=== PATIENT | female | born 1985 | race Caucasian/White ===

== ENCOUNTER 2016-03-14 13:20 | Emergency (ER) | payer SELFPAY ==
[~2016-03-14] VITALS: Ht 170.2 cm; Wt 123.7 kg
[~2016-03-14 13:20] MED LIST: FIORIC PO
[2016-03-14 13:24] VITALS: BP 190/124; PULSE 98; RESP 16; TEMP 99; O2SAT 100
[2016-03-14] MEDS ORDERED: TYLE325T PO (13:58)
[2016-03-14] MEDS ORDERED: IBUP800T23 PO (13:58)
[2016-03-14 13:59] LABS: MEAN CORPUSCULAR HGB CONC 29.5 % (32.0-36.0)
--- NOTE | 2016-03-14 14:24 | PD ---
HPI Chief Complaint: Hypertension Time Seen by Provider: 13:56 Travel History International Travel<30 days: No Contact w/Intl Traveler<30days: No Traveled to known affect area: No History of Present Illness HPI Set 30 year-old woman who presents to the emergency department complaining of elevated blood pressure. She is a history of polycystic kidney disease and medullary sponge kidney. She is not supposed to take NSAIDs. She's had bad dental pain in her right upper wisdom tooth for the past several weeks and over the past week is taken a lot of ibuprofen. She states that she went to the oral surgeon today get the surgery done to remove her was sent to swelling is her blood pressure was markedly elevated, 220s over 100s. They nontender to to see if that would help with the pain. Her blood pressure remained elevated so she was sent to the emergency department for evaluation. Other than the dental pain patient's been feeling otherwise well. No change in her urination. No chest pain or trouble breathing. No other complaints. History Past Medical History Narrative Medical Polycystic kidney disease, medullary sponge kidney PNEUMOCCOCAL Vaccine (Year): 1 Menopausal: No : 2 Para: 2 Social History Alcohol Use: No Tobacco Use: No Allergies-Medications (Allergen,Severity, Reaction): Coded Allergies: Contrast Media (Verified Allergy, Severe, VOMITING , 03/14/16) Inapsine (Verified Allergy, Severe, Anaphylaxis, 03/14/16) Oxycodone (Verified Allergy, Severe, HIVES, 03/14/16) Percocet (Verified Allergy, Severe, DIFFICULTY BREATHING, 03/14/16) Sulfa (Verified Allergy, Severe, swell, 03/14/16) Toradol (Verified Allergy, Severe, ITCHING, 03/14/16) Ibuprofen (Verified Adverse Reaction, Unknown, TOLD NOT TO TAKE DUE TO KIDNEY DISORDERS, 03/14/16) Reported Meds & Prescriptions Reported Meds & Active Scripts Active Reported Ibuprofen 800 Mg Tab 800 Mg PO Q8H PRN Tylenol (Acetaminophen) 325 Mg Tab 650 Mg PO Q6H PRN Review of Systems Except as stated in HPI: all other systems reviewed are Neg Physical Exam Narrative GENERAL: Well-appearing 30 year-old woman, no acute distress. SKIN: Warm and dry. HEAD: Atraumatic. Normocephalic. CARDIOVASCULAR: Regular rate and rhythm. No murmur appreciated. RESPIRATORY: No accessory muscle use. Clear to auscultation. Breath sounds equal bilaterally. GASTROINTESTINAL: Abdomen soft, non-tender, nondistended. Hepatic and splenic margins not palpable. MUSCULOSKELETAL: No obvious deformities. Data Data Last Documented VS Vital Signs Date Time Temp Pulse Resp B/P Pulse Ox O2 Delivery O2 Flow Rate FiO2 03/14/16 13:24 99.0 98 16 190/124 100 Orders Complete Blood Count With Diff (03/14/16 13:57) Basic Metabolic Panel (Bmp) (03/14/16 13:57) Iv Access Insert/Monitor (03/14/16 13:57) Labs Laboratory Tests Test 03/14/16 14:28 White Blood Count 15.2 TH/MM3 Red Blood Count 4.91 MIL/MM3 Hemoglobin 9.8 GM/DL Hematocrit 33.3 % Mean Corpuscular Volume 67.9 FL Mean Corpuscular Hemoglobin 20.0 PG Mean Corpuscular Hemoglobin 29.5 % Concent Red Cell Distribution Width 17.2 % Platelet Count 473 TH/MM3 Mean Platelet Volume 7.6 FL Neutrophils (%) (Auto) 64.5 % Lymphocytes (%) (Auto) 23.9 % Monocytes (%) (Auto) 6.3 % Eosinophils (%) (Auto) 2.3 % Basophils (%) (Auto) 3.0 % Neutrophils # (Auto) 9.8 TH/MM3 Lymphocytes # (Auto) 3.6 TH/MM3 Monocytes # (Auto) 1.0 TH/MM3 Eosinophils # (Auto) 0.3 TH/MM3 Basophils # (Auto) 0.5 TH/MM3 CBC Comment AUTO DIFF Sodium Level 141 MEQ/L Potassium Level 3.8 MEQ/L Chloride Level 108 MEQ/L Carbon Dioxide Level 23.7 MEQ/L Anion Gap 9 MEQ/L Blood Urea Nitrogen 9 MG/DL Creatinine 0.65 MG/DL Estimat Glomerular Filtration 106 ML/MIN Rate Random Glucose 86 MG/DL Calcium Level 8.5 MG/DL [facility] Medical Decision Making Medical Screen Exam Complete: Yes Emergency Medical Condition: Yes Interpretation(s) LABS: CBC remarkable for mild leukocytosis. Mild anemia. BMP unremarkable. Differential Diagnosis Hypertension, adverse effect of NSAIDs, pain, other Narrative Course Medical decision making INITIAL: 30-year-old woman presents emergent department with a somatic elevated blood pressure. 2 still numb she does not in any pain now. This could be related to her chronic kidney disease and NSAID use. We'll check creatinine, reassess. Diagnosis Primary Impression: Elevated blood pressure reading Additional Instructions: Take amlodipine as prescribed. Take blood pressure daily, right down on a sheet of paper, take the paper with you when you follow up with her primary physician. Return to the emergency department for any worsening headache, chest pain, trouble breathing, or any other new or worsening symptoms. Med/Other Pt SpecificInfo: Prescription(s) given Scripts Amlodipine 5 Mg Tab5 Mg PO DAILY #30 TAB Ref 0 Prov:Poli Mccurdy MD 03/14/16 Disposition: 01 DISCHARGE HOME Condition: Stable Poli Mccurdy MD Mar 14, 2016 14:24
[2016-03-14 14:42] LABS: AUTOMATED NEUTROPHIL # 9.8 TH/MM3 (1.8-7.7); BASOPHIL # 0.5 TH/MM3 (0-0.2); EOSINOPHIL # 0.3 TH/MM3 (0-0.4); EOSINOPHIL % 2.3 % (0.0-4.0); HEMATOCRIT 33.3 % (35.0-46.0); LYMPH % 23.9 % (9.0-44.0); LYMPHOCYTE # 3.6 TH/MM3 (1.0-4.8); MEAN CELL VOLUME 67.9 FL (80.0-100.0); MONO % 6.3 % (0.0-8.0); NEUT % 64.5 % (16.0-70.0); PLATELET COUNT 473 TH/MM3 (150-450); RED BLOOD COUNT 4.91 MIL/MM3 (4.00-5.30); RED CELL DISTRIBUTION WIDTH 17.2 % (11.6-17.2); WHITE BLOOD COUNT 15.2 TH/MM3 (4.0-11.0)
[2016-03-14 14:44] LABS: HEMO FLAGS AUTO DIFF
[2016-03-14 14:45] LABS: POTASSIUM 3.8 MEQ/L (3.5-5.1)
[2016-03-14 14:48] LABS: BICARBONATE 23.7 MEQ/L (21.0-32.0)
[2016-03-14] MEDS ORDERED: AMLO5TAB2 PO (15:04)
[2016-03-14 15:08] LABS: SCAN/DIFF AUTO DIFF CONFIRMED
[2016-03-14] MEDS ORDERED: amLODIPine BESYLATE 5 MG TAB PO ONE (15:15)
[2016-03-14 15:19] VITALS: BP 202/80
== END 2016-03-14 15:22 | disposition home or self-care (01) ==
LOC: PHED 13:20
DX: R03.0 Elevated blood-pressure reading, without diagnosis of hypertension (principal); Q61.3 Polycystic kidney, unspecified; Q61.5 Medullary cystic kidney
CPT/HCPCS: 80048; 85025; 99283

== ENCOUNTER 2016-12-25 07:07 | Emergency (ER) | payer OTHER ==
[~2016-12-25] VITALS: Ht 170.2 cm; Wt 128.0 kg
[~2016-12-25 07:07] MED LIST changes: +AMLO5TAB2 PO; -FIORIC PO; +IBUP800T23 PO; +TYLE325T PO
[2016-12-25 07:13] VITALS: BP 228/124; PULSE 103; RESP 20; TEMP 97.8; O2SAT 100
[2016-12-25] MEDS ORDERED: diphenhydrAMINE HCL 50 MG/ML VIAL IV PUSH ONE (07:45)
[2016-12-25] MEDS ORDERED: METOCLOPRAMIDE HCL 10 MG/2 ML VIAL IV PUSH ONE (07:45)
[2016-12-25] MEDS ORDERED: SODIUM CHLOR 0.9% 1000 ML INJ 1,000 ML IV ONE (07:45)
--- NOTE | 2016-12-25 07:48 | PD ---
HPI Chief Complaint: Headache Time Seen by Provider: 07:18 Travel History International Travel<30 days: No Contact w/Intl Traveler<30days: No Traveled to known affect area: No History of Present Illness HPI 31-year-old female at 15 weeks presents with nasal congestion and frontal headache over the past 3 days. She denies any fever and her MAXIMUM TEMPERATURE was 99.3. She states that yesterday she saw her asp net software developer at [place] [employer] and they recommended for her to add in Benadryl to the Tylenol that she was taking. She states that she's not having any abdominal pain, vaginal bleeding, vaginal discharge or other concurrent complaints at this time. She states that she used to be on metoprolol before she was but her blood pressure has been fine even up until yesterday when it was in the 130s over 80s. She states that she was trying to stay off of blood pressure medication if possible is trying to adjust her diet by limiting salt. She denies specific modifying factors. PFSH Past Medical History Arthritis: No Asthma: No Autoimmune Disease: No Blood Disorders: No Anxiety: No Depression: No Heart Rhythm Problems: No Cancer: No High Cholesterol: No Chemotherapy: No Congestive Heart Failure: No COPD: No Cerebrovascular Accident: No Diabetes: No Diminished Hearing: No Endocrine: No Gastrointestinal Disorders: No GERD: No Glaucoma: No Genitourinary: Yes (POLYCYSTIC & MEDULLARY SPONGE KIDNEYS) Headaches: No Hepatitis: No Hiatal Hernia: No Heparin Induced Thrombocytopen: No Hypertension: Yes Immune Disorder: No Kidney Stones: Yes Musculoskeletal: No Parkinson's Disease: No Psychiatric: No Reproductive: No Respiratory: No Immunizations Current: No Migraines: Yes Myocardial Infarction: Yes Radiation Therapy: No Renal Failure: No Seizures: No Sickle Cell Disease: No Sleep Apnea: No Thyroid Disease: No Ulcer: No PNEUMOCCOCAL Vaccine (Year): 1 ?: Menopausal: No : 3 Para: 2 Miscarriage: 0 : 0 Past Surgical History Abdominal Surgery: Yes (C SECTION) AICD: No Appendectomy: No Arteriovenous Shunt: No Body Medical Devices: KIDNEY STENTS Cardiac Surgery: No Section: Yes Cholecystectomy: No Ear Surgery: No Endocrine Surgery: No Eye Surgery: No Insulin Pump: No Joint Replacement: No Oral Surgery: No Pacemaker: No Thoracic Surgery: No Social History Alcohol Use: No Tobacco Use: No Substance Use: No Allergies-Medications (Allergen,Severity, Reaction): Coded Allergies: Sulfa (Sulfonamide Antibiotics) (Unverified Allergy, Severe, swell, ) acetaminophen (Unverified Allergy, Severe, DIFFICULTY BREATHING, 12/25/16) diatrizoate meglumine (Unverified Allergy, Severe, VOMITING , 12/25/16) droperidol (Unverified Allergy, Severe, Anaphylaxis, 12/25/16) gadobenic acid (Unverified Allergy, Severe, VOMITING , 12/25/16) gadodiamide (Unverified Allergy, Severe, VOMITING , 12/25/16) gadoteridol (Unverified Allergy, Severe, VOMITING , 12/25/16) iodixanol (Unverified Allergy, Severe, VOMITING , 12/25/16) iohexol (Unverified Allergy, Severe, VOMITING , 12/25/16) ketorolac (Unverified Allergy, Severe, ITCHING, 12/25/16) oxycodone (Unverified Allergy, Severe, DIFFICULTY BREATHING, 12/25/16) ibuprofen (Unverified Adverse Reaction, Unknown, TOLD NOT TO TAKE DUE TO KIDNEY DISORDERS, 12/25/16) Reported Meds & Prescriptions Reported Meds & Active Scripts Active Macrobid (Nitrofurantoin Monoh/Nitrofur Macro) 100 Mg Cap 100 Mg PO BID 5 Days Labetalol (Labetalol HCl) 100 Mg Tab 100 Mg PO BID 30 Days Reported Tylenol (Acetaminophen) 325 Mg Tab 650 Mg PO Q6H PRN Review of Systems Except as stated in HPI: all other systems reviewed are Neg Physical Exam Narrative General: No apparent distress, well appearing ENT: mmm, rhinorrhea noted Neck: Neck is supple, no meningeal signs, trachea is midline Cardiovascular: Regular rate and rhythm Lungs: No increased respiratory effort noted, CTA bilaterally Abdomen: Soft, NT, ND, no rebound or guarding Extremities: No edema Neuro: Awake, motor and sensation grossly intact, normal speech Data Data Last Documented VS Vital Signs Date Time Temp Pulse Resp B/P (MAP) Pulse Ox O2 Delivery O2 Flow Rate FiO2 12/25/16 09:02 98 18 189/84 (119) 98 Room Air 12/25/16 07:13 97.8 Orders Orders Magnesium (Mg) (12/25/16 07:32) Phosphorus (Po4) (12/25/16 07:32) Complete Blood Count With Diff (12/25/16 07:32) Basic Metabolic Panel (Bmp) (12/25/16 07:32) Urinalysis - C+S If Indicated (12/25/16 07:32) Iv Access Insert/Monitor (12/25/16 07:32) Ecg Monitoring (12/25/16 07:32) Oximetry (12/25/16 07:32) Sodium Chlor 0.9% 1000 Ml Inj (Ns 1000 M (12/25/16 07:45) Influenzae A/B Antigen (12/25/16 07:32) Metoclopramide Inj (Reglan Inj) (12/25/16 07:45) Diphenhydramine Inj (Benadryl Inj) (12/25/16 07:45) Labetalol (Trandate) (12/25/16 08:00) Urine Culture (12/25/16 07:45) Ed Discharge Order (12/25/16 09:17) Labs Laboratory Tests Test 12/25/16 07:45 12/25/16 08:30 Urine Collection Type CLEAN CATCH Urine Color YELLOW Urine Turbidity CLEAR Urine pH 7.0 Urine Specific Dexter 1.010 Urine Protein 30 mg/dL Urine Glucose (UA) NEG mg/dL Urine Ketones NEG mg/dL Urine Occult Blood TRACE Urine Nitrite NEG Urine Bilirubin NEG Urine Leukocyte Esterase LARGE Urine RBC 4-9 /hpf Urine WBC 25-49 /hpf Urine Squamous Epithelial Cells > 8 /hpf Urine Bacteria FEW /hpf Microscopic Urinalysis Comment CULTURE INDICATED Urine Collection Time 07:45 White Blood Count 14.8 TH/MM3 Red Blood Count 5.38 MIL/MM3 Hemoglobin 14.3 GM/DL Hematocrit 44.3 % Mean Corpuscular Volume 82.4 FL Mean Corpuscular Hemoglobin 26.7 PG Mean Corpuscular Hemoglobin Concent 32.4 % Red Cell Distribution Width 17.6 % Platelet Count 332 TH/MM3 Mean Platelet Volume 7.9 FL Neutrophils (%) (Auto) 72.2 % Lymphocytes (%) (Auto) 17.1 % Monocytes (%) (Auto) 9.4 % Eosinophils (%) (Auto) 0.6 % Basophils (%) (Auto) 0.7 % Neutrophils # (Auto) 10.7 TH/MM3 Lymphocytes # (Auto) 2.5 TH/MM3 Monocytes # (Auto) 1.4 TH/MM3 Eosinophils # (Auto) 0.1 TH/MM3 Basophils # (Auto) 0.1 TH/MM3 CBC Comment DIFF FINAL Differential Comment Blood Urea Nitrogen 6 MG/DL Creatinine 0.56 MG/DL Random Glucose 87 MG/DL Calcium Level 9.1 MG/DL Phosphorus Level 2.9 MG/DL Magnesium Level 2.1 MG/DL Sodium Level 135 MEQ/L Potassium Level 3.3 MEQ/L Chloride Level 102 MEQ/L Carbon Dioxide Level 21.7 MEQ/L Anion Gap 11 MEQ/L Estimat Glomerular Filtration Rate 125 ML/MIN MDM Medical Decision Making Medical Screen Exam Complete: Yes Emergency Medical Condition: Yes Medical Record Reviewed: Yes (past history confirm, prior visit with elevated blood pressure here in March placed on [facility]) Interpretation(s) CBC & BMP Diagram 12/25/16 08:30 Calcium Level 9.1, Phosphorus Level 2.9, Magnesium Level 2.1 ua ?contamination vs uti, given will treat Differential Diagnosis Hypertensive urgency, URI, hypertension, renal failure Narrative Course Will check blood work, urinalysis and discuss with her asp net software developer while dosing with IV fluids, Reglan, Benadryl Patient updated and agrees to starting labetalol for blood pressure medication. We'll give first dose here of 100 mg Patient denies any new complaints and states that they are feeling better. Patient happy with care, all questions answered. Patient knows that follow up is incumbent on them and to return to the emergency room immediately if new or worsening symptoms develop. Patient given strict return precautions, vitals reviewed and are normal, agrees to further workup as an outpatient. Physician Communication Physician Communication dr garnica who is covering for the group agrees to workup as ordered and to start on labetalol 100 mg twice a day and to have her follow in the office tomorrow morning if her blood pressure and symptoms improve dr garnica agrees to Macrobid and discharge with labetalol 100 mg twice a day as discussed Diagnosis Primary Impression: Headache in Qualified Codes: O26.899 - Other specified related conditions, unspecified trimester; R51 - Headache Additional Impressions: Hypertension Qualified Codes: I10 - Essential (primary) hypertension Upper respiratory infection Qualified Codes: J06.9 - Acute upper respiratory infection, unspecified Patient Instructions: General Instructions Additional Instructions: Return as needed, keep blood pressure log, follow with asp net software developer in the morning, Tylenol as needed, keep hydrated Med/Other Pt SpecificInfo: Prescription(s) given Scripts Nitrofurantoin Monohydrate Macrocrystals (Macrobid) 100 Mg Cap 100 MG PO BID for Infection for 5 Days, #10 CAP 0 Refills Prov: Makenzie Prieto MD 12/25/16 Labetalol (Labetalol) 100 Mg Tab 100 MG PO BID for Blood Pressure Management for 30 Days, #60 TAB 0 Refills Prov: Makenzie Prieto MD 12/25/16 Disposition: 01 DISCHARGE HOME Condition: Stable Makenzie Prieto MD Dec 25, 2016 07:48
[2016-12-25] MEDS ORDERED: LABETALOL HCL 100 MG TAB PO ONE (08:00)
[2016-12-25 08:05] LABS: BLOOD, URINE TRACE (NEG); GLUCOSE,URINE NEG (NEG); KETONE, URINE NEG (NEG); NITRITE,URINE NEG (NEG)
[2016-12-25 08:07] LABS: METHOD OF COLLECTION CLEAN CATCH
[2016-12-25 08:08] LABS: URINE COLOR YELLOW (YELLW/STRAW)
[2016-12-25 08:14] LABS: SQUAMOUS EPITHELIAL CELL URINE > 8 /hpf (0-5)
[2016-12-25 08:15] VITALS: BP 215/96; PULSE 98; RESP 18; O2SAT 98
[2016-12-25 08:15] LABS: BACTERIA, URINE FEW /hpf; COMMENT (UR) CULTURE INDICATED; CULTURE IF INDICATED CULTURE INDICATED
[2016-12-25 08:17] VITALS: RESP 18; O2SAT 98
[2016-12-25 08:48] LABS: AUTOMATED NEUTROPHIL # 10.7 TH/MM3 (1.8-7.7); BASOPHIL # 0.1 TH/MM3 (0-0.2); BASOPHIL % 0.7 % (0.0-2.0); EOSINOPHIL # 0.1 TH/MM3 (0-0.4); EOSINOPHIL % 0.6 % (0.0-4.0); HEMATOCRIT 44.3 % (35.0-46.0); HEMO FLAGS DIFF FINAL; LYMPH % 17.1 % (9.0-44.0); LYMPHOCYTE # 2.5 TH/MM3 (1.0-4.8); MEAN CELL VOLUME 82.4 FL (80.0-100.0); MEAN CORPUSCULAR HEMOGLOBIN 26.7 PG (27.0-34.0); MEAN CORPUSCULAR HGB CONC 32.4 % (32.0-36.0); MONO % 9.4 % (0.0-8.0); NEUT % 72.2 % (16.0-70.0); PLATELET COUNT 332 TH/MM3 (150-450); RED BLOOD COUNT 5.38 MIL/MM3 (4.00-5.30); RED CELL DISTRIBUTION WIDTH 17.6 % (11.6-17.2); WHITE BLOOD COUNT 14.8 TH/MM3 (4.0-11.0)
[2016-12-25 08:56] LABS: POTASSIUM 3.3 MEQ/L (3.5-5.1)
[2016-12-25 09:00] LABS: BICARBONATE 21.7 MEQ/L (21.0-32.0); MAGNESIUM 2.1 MG/DL (1.5-2.5)
[2016-12-25 09:02] VITALS: BP 189/84; PULSE 98; RESP 18; O2SAT 98
[2016-12-25] MEDS ORDERED: LABE100T2 PO (09:16)
[2016-12-25] MEDS ORDERED: MACR100C2 PO (09:16)
== END 2016-12-25 09:39 | disposition home or self-care (01) ==
LOC: PHED 07:07
DX: O26.92 Pregnancy related conditions, unspecified, second trimester (principal); R51 Headache; O10.912 Unspecified pre-existing hypertension complicating pregnancy, second trimester; I25.2 Old myocardial infarction; Z3A.15 15 weeks gestation of pregnancy
CPT/HCPCS: 80048; 81001; 83735; 84100; 85025; 87086; 87804; 96361; 96374; 96375; 99284; J1200; J2765; J7030

== ENCOUNTER 2017-01-23 13:53 | Observation (INO) | payer MEDICAID, OTHER ==
[2017-01-23] VITALS (7 sets, daily range): BP systolic 150–160; BP diastolic 81–90; PULSE 88–91; RESP 18; TEMP 98.3
[~2017-01-23] VITALS: Ht 170.2 cm; Wt 104.0 kg
[~2017-01-23 13:53] MED LIST changes: -AMLO5TAB2 PO; -IBUP800T23 PO; +LABE100T2 PO; +MACR100C2 PO
--- NOTE | 2017-01-23 15:20 | HHI.HP ---
HPI Chief Complaint Hypertension Date Seen: Jan 23, 2017 Time Seen: 15:10 Travel History International Travel<30 Days: No Contact w/Intl Traveler<30Days: No Known Affected Area: No History of Present Illness HPI Patient is 31-year-old white female previous [address] Wang for care. She has history of chronic hypertension long-term and is on labetalol just recently started. She noted that her blood pressure going up today in the 160/100 drains and an 180 and 190/[address] [facility] office and they told her to come here and to double up on her labetalol 100 mg tablet again today. only Medications She Takes for Her Blood Pressure Right Now. She is 19 weeks is no bleeding or abdominal pain no drainage Weeks Gestation: 19 Para: 2 : 3 Last Menstrual Period: Jan 23, 2017 History Past Medical History Narrative Medical Chronic hypertension patient prior to was on Lopressor low-dose and was controlled well with that. Once she was on nothing the first trimester and then started on labetalol in the second trimester. She has a history of polycystic kidney disease as well as some of the chronic kidney problem Obstetric History Obstetric History She had 2 C-sections, she states with her last she was in the hospital for hypertension for 4 months of on her that was treated just in-house hospitalization and observation really treated with medication according to her this was 15 years ago Past Surgical History Narrative Surgical 2 C-sections Social History Alcohol Use: No Tobacco Use: No Substance Abuse: No Allergies-Medications (Allergen,Severity, Reaction): Coded Allergies: Sulfa (Sulfonamide Antibiotics) (Unverified Allergy, Severe, swell, ) acetaminophen (Unverified Allergy, Severe, DIFFICULTY BREATHING, 12/25/16) diatrizoate meglumine (Unverified Allergy, Severe, VOMITING , 12/25/16) droperidol (Unverified Allergy, Severe, Anaphylaxis, 12/25/16) gadobenic acid (Unverified Allergy, Severe, VOMITING , 12/25/16) gadodiamide (Unverified Allergy, Severe, VOMITING , 12/25/16) gadoteridol (Unverified Allergy, Severe, VOMITING , 12/25/16) iodixanol (Unverified Allergy, Severe, VOMITING , 12/25/16) iohexol (Unverified Allergy, Severe, VOMITING , 12/25/16) ketorolac (Unverified Allergy, Severe, ITCHING, 12/25/16) oxycodone (Unverified Allergy, Severe, DIFFICULTY BREATHING, 12/25/16) ibuprofen (Unverified Adverse Reaction, Unknown, TOLD NOT TO TAKE DUE TO KIDNEY DISORDERS, 12/25/16) Home Meds Active Scripts Nitrofurantoin Monohydrate Macrocrystals (Macrobid) 100 Mg Cap, 100 MG PO BID for Infection for 5 Days, #10 CAP 0 Refills Prov:Makenzie Prieto MD 12/25/16 Labetalol (Labetalol) 100 Mg Tab, 100 MG PO BID for Blood Pressure Management for 30 Days, #60 TAB 0 Refills Prov:Makenzie Prieto MD 12/25/16 Reported Medications Acetaminophen (Tylenol) 325 Mg Tab, 650 MG PO Q6H Y for PAIN, TAB 0 Refills 03/14/16 Review of Systems General / Constitutional: No: Fever, Weight Gain, Chills, Other Eyes: Blurred Vision, No: Diploplia, Visual changes, Pain, Photophobia HENT: Headaches, No: Vertigo, Lightheadedness Cardiovascular: No: Irregular Rhythm, Chest Pain or Discomfort, Palpitations, Tachycardia, Syncope, Varicosities, Edema, Cyanosis Respiratory: No: Cough, Short of Breath, Other Gastrointestinal: No: Nausea, Vomiting, Diarrhea Genitourinary: No: Decreased Urinary Output, Oliguria Musculoskeletal: No: Limited ROM, Weakness, Cramping, Edema, Pain Skin: No Rash, No Itching, No Dryness, No Lumps, No Change in Pigmentation, No Change in Nails, No Alopecia, No Lesions Neurologic: No: Weakness, Dizziness, Syncope, Focal Abnormalities, Coordination Problem, Headache, Slurred Speech, Seizures Psychiatric: No: Depression, Suicidal Ideations, Homicidal Ideation Endocrine: No: Heat Intolerance, Cold Intolerance, Polydipsia, Polyuria, Other Physical Exam Vital Signs Date Time Temp Pulse Resp B/P (MAP) Pulse Ox O2 Delivery O2 Flow Rate FiO2 01/23/17 14:40 91 159/85 (109) Narrative GENERAL: Well-nourished, well-developed obese patient. SKIN: Warm and dry. HEAD: Normocephalic and atraumatic. EYES: No scleral icterus. No injection or drainage. ENT: No nasal drainage noted. Mucous membranes pink. Airway patent. NECK: Supple, trachea midline. No JVD. CARDIOVASCULAR: Regular rate and rhythm without murmurs, gallops, or rubs. RESPIRATORY: Breath sounds equal bilaterally. No accessory muscle use. BREASTS: Bilateral exam showed no masses , no retractions, no nipple discharge. ABDOMEN/GI: Abdomen soft, non-tender, bowel sounds present, no rebound, no guarding Gravid to [19-] weeks size Fundal Height: [19-] FHT's: 140s ] EXTREMITIES: No cyanosis or edema. BACK: Nontender without obvious deformity. No CVA tenderness. NEUROLOGICAL: Awake and alert. Motor and sensory grossly within normal limits. Five out of 5 muscle strength in all muscle groups. Normal speech. Caprini VTE Risk Assessment Caprini VTE Risk Assessment: No/Low Risk (score <= 1) Caprini Risk Assessment Model Point Value = 1 Point Value = 2 Point Value = 3 Point Value = 5 Age 41-60 Minor surgery BMI > 25 kg/m2 Swollen legs Varicose veins or History of unexplained or recurrent spontaneous Oral contraceptives or hormone replacement Sepsis (< 1 month) Serious lung disease, including pneumonia (< 1 month) Abnormal pulmonary function Acute myocardial infarction Congestive heart failure (< 1 month) History of inflammatory bowel disease Medical patient at bed rest Age 61-74 Arthroscopic surgery Major open surgery (> 45 min) Laparoscopic surgery (> 45 min) Malignancy Confined to bed (> 72 hours) Immobilizing plaster cast Central venous access Age >= 75 History of VTE Family history of VTE Factor V Leiden Prothrombin [id number] Lupus anticoagulant Anticardiolipin antibodies Elevated serum homocysteine Heparin-induced thrombocytopenia Other congenital or acquired thrombophilia Stroke (< 1 month) Elective arthroplasty Hip, pelvis, or leg fracture Acute spinal cord injury (< 1 month) Prophylaxis Regimen Total Risk Factor Score Risk Level Prophylaxis Regimen 0-1 Low Early ambulation 2 Moderate Order ONE of the following: *Sequential Compression Device (SCD) *Heparin 5000 units SQ BID 3-4 Higher Order ONE of the following medications: *Heparin 5000 units SQ TID *Enoxaparin/Lovenox 40 mg SQ daily (WT < 150 kg, CrCl > 30 mL/min) *Enoxaparin/Lovenox 30 mg SQ daily (WT < 150 kg, CrCl > 10-29 mL/min) *Enoxaparin/Lovenox 30 mg SQ BID (WT < 150 kg, CrCl > 30 mL/min) AND/OR *Sequential Compression Device (SCD) 5 or more Highest Order ONE of the following medications: *Heparin 5000 units SQ TID (Preferred with Epidurals) *Enoxaparin/Lovenox 40 mg SQ daily (WT < 150 kg, CrCl > 30 mL/min) *Enoxaparin/Lovenox 30 mg SQ daily (WT < 150 kg, CrCl > 10-29 mL/min) *Enoxaparin/Lovenox 30 mg SQ BID (WT < 150 kg, CrCl > 30 mL/min) AND *Sequential Compression Device (SCD) Data Data Orders Orders Vital Signs (Adult) .ON ADMISSION (01/23/17 14:45) ^ Labor Status (01/23/17 14:45) ^ Non Stress Test (01/23/17 14:45) ^ Hydration (01/23/17 14:45) Cbc No Diff, Includes Plts (01/23/17 15:07) Comprehensive Metabolic Panel (01/23/17 15:07) Uric Acid (01/23/17 15:07) Ob (2e) Additional Admit Info (01/23/17 15:09) Assessment/Plan Assessment and Plan Patient is 31-year-old white female previous 2 at 19 weeks who presents with chronic hypertension exacerbation. She has had hypertension for years been on labetalol in this . Of pressures today were in the 180- 200 range systolic no 90 to 115 range diastolic she's currently on labetalol 100 twice a day she did was on 100 once a day and they just moved to twice a day 2 days ago Impression-19 week intrauterine with chronic hypertension and the hypertension exacerbation Plan is admission to hospital for 24-hour observation collect 24-hour urine, PIH labs, lab, adjust medications as needed, discussed with Dr. Wang and she agrees to plan Aris Zimmer II, MD Jan 23, 2017 15:20
[2017-01-23] MEDS ORDERED: SODIUM CHLORIDE 0.9% FLUSH 5 ML FLUSH IV FLUSH PRN (15:30)
[2017-01-23] MEDS ORDERED: NIFEdipine 10 MG CAP PO PRN (15:30)
[2017-01-23] MEDS ORDERED: CALCIUM GLUCONATE 10% 1 GM/10 ML VIAL IV PUSH PRN (15:30)
[2017-01-23] MEDS ORDERED: ACETAMINOPHEN 325 MG TAB PO PRN (15:30)
[2017-01-23] MEDS ORDERED: ZOLPIDEM TARTRATE 5 MG TAB PO PRN (15:30)
[2017-01-23] MEDS ORDERED: DOCUSATE SODIUM 100 MG CAP PO PRN (15:30)
[2017-01-23] MEDS ORDERED: ONDANSETRON ODT 4 MG TAB PO PRN (15:30)
[2017-01-23 15:40] LABS: BACTERIA, URINE RARE /hpf; BLOOD, URINE NEG (NEG); GLUCOSE,URINE NEG (NEG); KETONE, URINE NEG (NEG); MUCUS URINE FEW /lpf (OCC); NITRITE,URINE NEG (NEG); SQUAMOUS EPITHELIAL CELL URINE 8 /hpf (0-5); URINE COLOR YELLOW (YELLW/STRAW)
[2017-01-23 15:43] LABS: COMMENT (UR) CATH-CULTURE IND; CULTURE IF INDICATED CATH CULTURE IND
[2017-01-23 16:11] LABS: HEMATOCRIT 35.1 % (35.0-46.0); MEAN CELL VOLUME 84.2 FL (80.0-100.0); MEAN CORPUSCULAR HGB CONC 35.6 % (32.0-36.0); PLATELET COUNT 298 TH/MM3 (150-450); RED BLOOD COUNT 4.17 MIL/MM3 (4.00-5.30); RED CELL DISTRIBUTION WIDTH 16.4 % (11.6-17.2); REVIEW FLAG FINAL; WHITE BLOOD COUNT 15.5 TH/MM3 (4.0-11.0)
[2017-01-23 16:28] LABS: ANION GAP 10 MEQ/L (5-15); AST (GOT) 17 U/L (15-37); BICARBONATE 20.5 MEQ/L (21.0-32.0); BLOOD UREA NITROGEN 8 MG/DL (7-18); CHLORIDE 108 MEQ/L (98-107); GLOMERULAR FILTRATION RATE 111 ML/MIN (>89); POTASSIUM 3.3 MEQ/L (3.5-5.1); SODIUM (NA) 138 MEQ/L (136-145); URIC ACID 4.8 MG/DL (2.6-6.0)
[2017-01-23 16:29] LABS: ALT (GPT) 28 U/L (10-53)
[2017-01-23 16:31] LABS: ALKALINE PHOSPHATASE 81 U/L (45-117); TOTAL BILIRUBIN ADULT 0.2 MG/DL (0.2-1.0)
[2017-01-23 17:01] LABS: RUBELLA IGG ANTIBODY 37.8 IU/mL (10.0-500.0); RUBELLA STATUS IMMUNE (IMMUNE)
--- NOTE | 2017-01-23 20:26 | PD.OB.ANTE ---
Subjective Diagnosis: (1) Chronic hypertension with exacerbation during in second trimester Diagnosis: Principal (2) Obesity affecting in second trimester Diagnosis: Secondary Interval History Patient c/o headaches since this past weekend, location upper neck midline, on/ off blurry vision, no floaters or stars. no nausea or RUQ pain. No LE edema, does report rings "are getting tight" on fingers. Pain currently 1/10 dull posterior headache. Antepartum ROS: Reports: New complaints (as noted above), movement normal , Denies: Loss of fluid, Vaginal bleeding, Contractions, Other Objective Vital Signs Vital Signs Date Time Temp Pulse Resp B/P (MAP) Pulse Ox O2 Delivery O2 Flow Rate FiO2 01/23/17 20:09 88 160/90 (113) 01/23/17 20:08 18 01/23/17 16:04 91 160/81 (107) 01/23/17 14:40 91 159/85 (109) Lab & Micro Results Test 01/23/17 14:22 01/23/17 15:51 Urine Color YELLOW Urine Turbidity HAZY Urine pH 7.0 Urine Specific Joaquin 1.010 Urine Protein TRACE mg/dL Urine Glucose (UA) NEG mg/dL Urine Ketones NEG mg/dL Urine Occult Blood NEG Urine Nitrite NEG Urine Bilirubin NEG Urine Urobilinogen LESS THAN 2.0 MG/DL Urine Leukocyte Esterase LARGE Urine RBC 9 /hpf Urine WBC 7 /hpf Urine Squamous Epithelial Cells 8 /hpf Urine Amorphous Sediment RARE Urine Bacteria RARE /hpf Urine Mucus FEW /lpf Microscopic Urinalysis Comment CATH-CULTURE IND White Blood Count 15.5 TH/MM3 Red Blood Count 4.17 MIL/MM3 Hemoglobin 12.5 GM/DL Hematocrit 35.1 % Mean Corpuscular Volume 84.2 FL Mean Corpuscular Hemoglobin 30.0 PG Mean Corpuscular Hemoglobin Concent 35.6 % Red Cell Distribution Width 16.4 % Platelet Count 298 TH/MM3 Mean Platelet Volume 8.4 FL Blood Urea Nitrogen 8 MG/DL Creatinine 0.62 MG/DL Random Glucose 78 MG/DL Total Protein 6.9 GM/DL Albumin 2.7 GM/DL Calcium Level 9.6 MG/DL Uric Acid 4.8 MG/DL Alkaline Phosphatase 81 U/L Aspartate Amino Transf (AST/SGOT) 17 U/L Alanine Aminotransferase (ALT/SGPT) 28 U/L Total Bilirubin 0.2 MG/DL Sodium Level 138 MEQ/L Potassium Level 3.3 MEQ/L Chloride Level 108 MEQ/L Carbon Dioxide Level 20.5 MEQ/L Anion Gap 10 MEQ/L Estimat Glomerular Filtration Rate 111 ML/MIN Rubella Immunity Screen IMMUNE Rubella Antibody, Quantitative 37.8 IU/mL Date/Time Source Procedure Growth Status 01/23/17 14:22 Urine Catheterized Urine Urine Culture Pending Received Physical Exam GENERAL: Obese pleasant female, laying in bed. CARDIOVASCULAR: Regular rate and rhythm without murmurs, gallops, or rubs. RESPIRATORY: Breath sounds equal bilaterally. No accessory muscle use. ABDOMEN/GI: Abdomen soft, non-tender. Fundus: [at umbilicus] GENITOURINARY: External Genitalia: deferred EXTREMITIES: No cyanosis, no pitting edema; hands mild swelling b/l; non-tender , without signs of DVT. Assessment and Plan Problem List: (1) Chronic hypertension with exacerbation during in second trimester ICD Codes: O10.912 - Unspecified pre-existing hypertension complicating , second trimester (2) Obesity affecting in second trimester ICD Codes: O99.212 - Obesity complicating , second trimester Assessment and Plan Patient is 31-year-old white female previous 2 admit at 19 weeks for symptomatic chronic hypertension exacerbation. 1) CHTN: was started on labetalol 100mg bid with Dr. Wang as outpatient, pressures remained severe range, pt was told to come to hospital for evaluation. Admission BP borderline severe despite increase in medication dose to 200mg this AM; due to symptomatic on evaluation will change dose to tid and continue to trend symptoms and pressures - [facility] labs wnl -24h urine in process -continue to monitor closely 2) morbid obesity: aware; will plan early 1h GTT 3) status: female, +FCA on admission, 19 wks 4) dispo: not meeting criteria Angeles Lee MD Jan 23, 2017 20:26
[2017-01-23] MEDS: LABETALOL HCL 200 MG TAB PO SCH (20:53)
[2017-01-23] MEDS ORDERED: LABETALOL HCL 200 MG TAB PO SCH (21:00)
[2017-01-23] MEDS: SODIUM CHLORIDE 0.9% FLUSH 5 ML FLUSH IV FLUSH SCH (21:00)
[2017-01-24 00:16] VITALS: RESP 18; TEMP 98
[2017-01-24 00:17] VITALS: BP 157/74; PULSE 92
[2017-01-24 03:49] VITALS: RESP 18; TEMP 98.2
[2017-01-24 03:50] VITALS: BP 158/84; PULSE 98
--- NOTE | 2017-01-24 06:15 | PD.OB.ANTE ---
Subjective Diagnosis: (1) Chronic hypertension with exacerbation during in second trimester Diagnosis: Principal (2) Obesity affecting in second trimester Diagnosis: Secondary Interval History resting, denies headache currently, no new complaints Antepartum ROS: Reports: movement normal, Denies: New complaints, Loss of fluid, Vaginal bleeding, Contractions, Other Objective Vital Signs Vital Signs Date Time Temp Pulse Resp B/P (MAP) Pulse Ox O2 Delivery O2 Flow Rate FiO2 01/24/17 03:50 98 158/84 (108) 01/24/17 03:49 18 01/24/17 03:49 98.2 01/24/17 00:17 92 157/74 (101) 01/24/17 00:16 98.0 18 01/23/17 22:11 18 01/23/17 22:10 89 150/87 (108) 01/23/17 20:52 98.3 01/23/17 20:09 88 160/90 (113) 01/23/17 20:08 18 01/23/17 16:04 91 160/81 (107) 01/23/17 14:40 91 159/85 (109) Lab & Micro Results Test 01/23/17 14:22 01/23/17 15:51 Urine Color YELLOW Urine Turbidity HAZY Urine pH 7.0 Urine Specific [place] 1.010 Urine Protein TRACE mg/dL Urine Glucose (UA) NEG mg/dL Urine Ketones NEG mg/dL Urine Occult Blood NEG Urine Nitrite NEG Urine Bilirubin NEG Urine Urobilinogen LESS THAN 2.0 MG/DL Urine Leukocyte Esterase LARGE Urine RBC 9 /hpf Urine WBC 7 /hpf Urine Squamous Epithelial Cells 8 /hpf Urine Amorphous Sediment RARE Urine Bacteria RARE /hpf Urine Mucus FEW /lpf Microscopic Urinalysis Comment CATH-CULTURE IND White Blood Count 15.5 TH/MM3 Red Blood Count 4.17 MIL/MM3 Hemoglobin 12.5 GM/DL Hematocrit 35.1 % Mean Corpuscular Volume 84.2 FL Mean Corpuscular Hemoglobin 30.0 PG Mean Corpuscular Hemoglobin Concent 35.6 % Red Cell Distribution Width 16.4 % Platelet Count 298 TH/MM3 Mean Platelet Volume 8.4 FL Blood Urea Nitrogen 8 MG/DL Creatinine 0.62 MG/DL Random Glucose 78 MG/DL Total Protein 6.9 GM/DL Albumin 2.7 GM/DL Calcium Level 9.6 MG/DL Uric Acid 4.8 MG/DL Alkaline Phosphatase 81 U/L Aspartate Amino Transf (AST/SGOT) 17 U/L Alanine Aminotransferase (ALT/SGPT) 28 U/L Total Bilirubin 0.2 MG/DL Sodium Level 138 MEQ/L Potassium Level 3.3 MEQ/L Chloride Level 108 MEQ/L Carbon Dioxide Level 20.5 MEQ/L Anion Gap 10 MEQ/L Estimat Glomerular Filtration Rate 111 ML/MIN Rubella Immunity Screen IMMUNE Rubella Antibody, Quantitative 37.8 IU/mL Date/Time Source Procedure Growth Status 01/23/17 14:22 Urine Catheterized Urine Urine Culture Pending Received Physical Exam GENERAL: Well-nourished, well-developed patient. Obese. CARDIOVASCULAR: Regular rate and rhythm without murmurs, gallops, or rubs. RESPIRATORY: Breath sounds equal bilaterally. No accessory muscle use. ABDOMEN/GI: Abdomen soft, non-tender. Fundus: [at umbilicus] GENITOURINARY: External Genitalia: defer EXTREMITIES: No cyanosis, non-tender, without signs of DVT. no LE edema; hands with mild swelling, rings still on but tight Assessment and Plan Problem List: (1) Chronic hypertension with exacerbation during in second trimester ICD Codes: O10.912 - Unspecified pre-existing hypertension complicating , second trimester Status: Acute (2) Obesity affecting in second trimester ICD Codes: O99.212 - Obesity complicating , second trimester Status: Chronic Assessment and Plan Patient is 31-year-old white female previous 2 admit at 18w1d for symptomatic chronic hypertension exacerbation. Today 01/24/17 18w2d. 1) CHTN: was started on labetalol 100mg bid with Dr. Wang as outpatient, pressures remained severe range, pt was told to come to hospital for evaluation. Admission BP's severe despite increase in medication dose to 200mg ; symptomatic with headache; start TID dosing of labetalol 200mg today & continue to monitor symptoms/pressures closely -24h urine in process, due at 1630 today -[facility] labs wnl on admission 2) morbid obesity: aware; will plan early 1h GTT; will need monthly growth u/s & testing 3) Rh negative with +antibody screen, Anti-Rhianna; will f/u titer & plan MFM referral within next 1-2 wks for ultrasound & consult 3) status: female, +FCA on admission, 18w2d today 4) dispo: not meeting criteria Angeles Lee MD Jan 24, 2017 06:15
[2017-01-24] MEDS: SODIUM CHLORIDE 0.9% FLUSH 5 ML FLUSH IV FLUSH SCH ×2 (07:40→19:00)
[2017-01-24] MEDS: LABETALOL HCL 200 MG TAB PO SCH ×2 (08:59→13:00)
[2017-01-24] MEDS: MULTIVIT/MIN/PREN/FOL AC/IRON PRENATAL TAB PO SCH (08:59)
[2017-01-24 09:05] VITALS: BP 159/97; PULSE 92
--- NOTE | 2017-01-24 11:17 | HHI.PR ---
NEUROPATHOLOGIST Note Note Update: Called by Dr. Duke, pathologist, to discuss maternal blood type and antibody test results Per Dr. Duke, pt is positive for Anti-C, Anti-D, and Ochoa antibodies, titers verbally stated to be 1:1024 for all 3; final results not yet available in [place] due to severity of antibody titers I called to discuss with MFM sponge hooker Dr. Singer, who recommend anatomy survey today with MCA measurement plan consultative visit with MFM next Saturday01/30/17 at [facility] well Angeles Lee MD Jan 24, 2017 11:17
[2017-01-24 11:29] VITALS: BP 159/83; PULSE 87
[2017-01-24 17:40] LABS: URINE TOTAL PROTEIN TIMED 31.2 MG/DL
[2017-01-24 17:44] LABS: CREAT 24 TIMED 90.5 MG/DL
[2017-01-24] MEDS ORDERED: LABETALOL HCL 100 MG TAB PO ONE (18:30)
--- NOTE | 2017-01-25 08:24 | PD.OB.ANTE ---
Subjective Diagnosis: (1) Chronic hypertension with exacerbation during in second trimester Diagnosis: Principal (2) Obesity affecting in second trimester Diagnosis: Secondary Antepartum ROS: Reports: Other (patient without complaints, denies headache, blurry vision, epigastric pain.) Objective Vital Signs Vital Signs Date Time Temp Pulse Resp B/P (MAP) Pulse Ox O2 Delivery O2 Flow Rate FiO2 01/24/17 11:29 87 159/83 (108) 01/24/17 09:05 92 159/97 (117) Lab & Micro Results Test 01/24/17 16:30 Urine Total Volume 24 Hours 2000 ML Urine Creatinine 24 Hour 1.81 GM/24HR Urine Total Protein 24 Hour 624 MG/24HR Date/Time Source Procedure Growth Status 01/23/17 14:22 Urine Catheterized Urine Urine Culture - Final 50-100,000 CFU/ML MIXED GRAM POSITIVE... Complete Physical Exam GENERAL: Well-nourished, well-developed patient. CARDIOVASCULAR: Regular rate and rhythm without murmurs, gallops, or rubs. RESPIRATORY: Breath sounds equal bilaterally. No accessory muscle use. ABDOMEN/GI: Abdomen soft, non-tender. Fundus: [-] GENITOURINARY: External Genitalia: intact and normal in appearance Cervix: [-] Dilatation: [-] Effacement: [-] Station: [-] Presentation: [-] Membranes: [-] Uterine Contractions: [-] FHT's: Category: [-] Baseline: [-] Reactive: [-] Variability: [-] Decels: [-] EXTREMITIES: No cyanosis or edema, non-tender, without signs of DVT. Assessment and Plan Problem List: (1) Chronic hypertension with exacerbation during in second trimester ICD Codes: O10.912 - Unspecified pre-existing hypertension complicating , second trimester Status: Acute (2) Obesity affecting in second trimester ICD Codes: O99.212 - Obesity complicating , second trimester Status: Chronic Assessment and Plan Patient is 31-year-old white female previous 2 admit at 18w1d for symptomatic chronic hypertension exacerbation. Today 01/25/17 18w3d. 1) CHTN: Patient labetalol increased to 300 mg 3 times a day overnight, blood pressures have been controlled with this, if control adequate throughout the day discharge later. Patient will follow up in a week. Baseline HELLP labs within normal limits, significant. Area of around 600 mg. Explained increased risk of preeclampsia the patient and patient's delivery and she is at high risk for this. Recommended to start aspirin 81 mg daily after d/c. 2) morbid obesity: aware; will plan early 1h GTT; will need monthly growth u/s & testing 3) Rh negative with +antibody screen, Anti-Rhianna; ultrasound yesterday within normal limits, normal MCA Dopplers, patient to follow up with MFM next week for further disposition. Source is from transfusion in the past year from abnormal uterine bleeding. 3) status: female, 4) dispo: Likely discharge home later today Galo Guillaume MD Jan 25, 2017 08:24
[2017-01-25] MEDS: SODIUM CHLORIDE 0.9% FLUSH 5 ML FLUSH IV FLUSH SCH (08:33)
[2017-01-25] MEDS: MULTIVIT/MIN/PREN/FOL AC/IRON PRENATAL TAB PO SCH (08:34)
[2017-01-25] MEDS: LABETALOL HCL 300 MG TAB PO SCH ×2 (08:43→13:07)
[2017-01-25] MEDS ORDERED: ASPIRIN 81 MG CHEW TAB CHEW SCH (09:00)
[2017-01-25] MEDS ORDERED: ASPI81 CHEW (15:07)
[2017-01-25] MEDS ORDERED: LABE300T PO (15:07)
--- NOTE | 2017-01-25 15:11 | HHI.DCPOC ---
Discharge Care Plan Diagnosis: (1) Elevated blood pressure reading (2) Rh negative status during (3) Chronic hypertension with exacerbation during in second trimester Report Symptoms to Your Doctor Headache that does not resolve with tylenol Goals to Promote Your Health * To prevent worsening of your condition and complications * To maintain your health at the optimal level Directions to Meet Your Goals Take your medications as prescribed Follow your dietary instruction Follow activity as directed Ensure plenty of rest for recovery Drink fluids for hydration Keep your appointments as scheduled Take your immunizations and boosters as scheduled If your symptoms worsen call your PCP, if no PCP go to Urgent Care Center or Emergency Room Smoking is Dangerous to Your Health. Avoid second hand smoke Call the 24-hour crisis hotline for domestic abuse at Galo Guillaume MD Jan 25, 2017 15:11
--- NOTE | 2017-01-25 15:55 | HHI.DS ---
Admission Date Jan 23, 2017 at 15:16 Discharge Date: Jan 25, 2017 Admitting Diagnosis #1 Worsening chronic hypertension #2 Rh alloimmunization Diagnosis: Brief History Patient is 31-year-old white female who is seen in outpatient setting for routine OB visit, she was found to have severe blood pressures, she has a known history of chronic hypertension. She was admitted to antepartum for blood pressure control, and collection of 24-hour urine. Her blood pressure was serially increased per she is well controlled on labetalol 300 mg 3 times a day , 24 urine protein returned at 624 mg. CBC and CMP were normal. Her antibody screen return positive for elevated titers as follows: ANTI-D TITER= 1:1024, ANTI-C TITER= 1:1024, ANTI-FyA TITER= 1:128. She had an ultrasound showing normal anatomy, EFW 267 g, normal MCA Dopplers of 1.27 MoM. On hospital day #2 she was doing well, blood pressures were in the mild range but adequately controlled on her oral medications, and she had plans a follow- up MFM the following week here in our OB floor unit and to see Dr. Wang in a week. On day of discharge she was 18 weeks and 3 days Pt Condition on Discharge: Stable Discharge Disposition: Discharge Home Discharge Instructions Diet Instructions: As Tolerated, No Restrictions (did not recommend full bedrest but recommended limited activity to some degree) Activities You Can Perform: Regular-No Restrictions Follow up Referrals: PASTA MAKER PASTA MAKER - 1 Week @ [facility] with Radhika Wang MD New Medications: Labetalol (Labetalol) 300 Mg Tab 300 MG PO TID for Blood Pressure Management for 30 Days, #90 TAB 0 Refills Aspirin (Tgt Aspirin) 81 Mg Chw 81 MG CHEW DAILY for Asthma Management, #30 EA 1 Refill Discontinued Medications: Acetaminophen (Tylenol) 325 Mg Tab 650 MG PO Q6H PRN for PAIN, TAB 0 Refills Labetalol (Labetalol) 100 Mg Tab 100 MG PO BID for Blood Pressure Management for 30 Days, #60 TAB 0 Refills Nitrofurantoin Monohydrate Macrocrystals (Macrobid) 100 Mg Cap 100 MG PO BID for Infection for 5 Days, #10 CAP 0 Refills Galo Guillaume MD Jan 25, 2017 15:54
== END 2017-01-25 14:16 | disposition home or self-care (01) ==
LOC: HOBED 13:53 → H2EA 15:16
PROVIDERS: ADMIT Obstetrics & Gynecology; ATTEND Obstetrics & Gynecology
DX: O10.912 Unspecified pre-existing hypertension complicating pregnancy, second trimester (principal); Q61.3 Polycystic kidney, unspecified; H53.8 Other visual disturbances; R51 Headache; Z67.91 Unspecified blood type, Rh negative; R82.90 Unspecified abnormal findings in urine; R79.89 Other specified abnormal findings of blood chemistry; R53.1 Weakness; Z3A.19 19 weeks gestation of pregnancy
CPT/HCPCS: 76805; 80053; 80074; 81001; 82570; 84157; 84550; 85027; 86077; 86592; 86703; 86762; 86850; 86870; 86886; 86900; 86901; 86902; 86920; 86922; 87086; 99285; G0378

== ENCOUNTER 2017-01-30 13:50 | Emergency (ER) | payer MEDICAID ==
[2017-01-30] MEDS ORDERED: NIFEdipine 10 MG CAP ONE (14:08)
[2017-01-30] MEDS ORDERED: NIFEdipine 10 MG CAP PO SCH (15:00)
[2017-01-30] MEDS ORDERED: LABETALOL HCL 300 MG TAB PO ONE (15:15)
--- NOTE | 2017-01-30 15:44 | PD ---
HPI Chief Complaint elevated BPs Date Seen: Jan 30, 2017 Time Seen: 15:21 Travel History International Travel<30 Days: No Contact w/Intl Traveler<30Days: No Known Affected Area: No History of Present Illness HPI Pt is a 31y/o @ 20.2wks. She has PNC with [facility]. She was dx'd last week with cHTN when she presented with 225/115 BPs. She had been on 100mg labetalol BID and it was increased to 300mg TID and yesterday when she was seen in clinic it was increased to 400mg TID starting this Saturday. She presented today for scheduled US and BPs were severe range (180/100). She is asx. She was given procardia PO 10mg per HTN emergency algorithm. Weeks Gestation: 20 Para: 2 : 3 History Past Medical History Narrative Medical cHTN obesity Obstetric History Obstetric History CS x2 Past Surgical History Narrative Surgical CS x2 Family History Family History: Negative Social History Alcohol Use: No Tobacco Use: No Substance Abuse: No Allergies-Medications (Allergen,Severity, Reaction): Coded Allergies: Sulfa (Sulfonamide Antibiotics) (Unverified Allergy, Severe, swell, ) diatrizoate meglumine (Unverified Allergy, Severe, VOMITING , 12/25/16) droperidol (Unverified Allergy, Severe, Anaphylaxis, 12/25/16) gadobenic acid (Unverified Allergy, Severe, VOMITING , 12/25/16) gadodiamide (Unverified Allergy, Severe, VOMITING , 12/25/16) gadoteridol (Unverified Allergy, Severe, VOMITING , 12/25/16) iodixanol (Unverified Allergy, Severe, VOMITING , 12/25/16) iohexol (Unverified Allergy, Severe, VOMITING , 12/25/16) ketorolac (Unverified Allergy, Severe, ITCHING, 12/25/16) oxycodone (Unverified Allergy, Severe, DIFFICULTY BREATHING, 12/25/16) ibuprofen (Unverified Adverse Reaction, Unknown, TOLD NOT TO TAKE DUE TO KIDNEY DISORDERS, 12/25/16) Home Meds Active Scripts Labetalol (Labetalol) 300 Mg Tab, 300 MG PO TID for Blood Pressure Management for 30 Days, #90 TAB 0 Refills Prov:Galo Guillaume MD 01/25/17 Aspirin (Tgt Aspirin) 81 Mg Chw, 81 MG CHEW DAILY for Asthma Management, #30 EA 1 Refill Prov:Galo Guillaume MD 01/25/17 Discontinued Reported Medications Acetaminophen (Tylenol) 325 Mg Tab, 650 MG PO Q6H Y for PAIN, TAB 0 Refills 03/14/16 Discontinued Scripts Nitrofurantoin Monohydrate Macrocrystals (Macrobid) 100 Mg Cap, 100 MG PO BID for Infection for 5 Days, #10 CAP 0 Refills Prov:Makenzie Prieto MD 12/25/16 Labetalol (Labetalol) 100 Mg Tab, 100 MG PO BID for Blood Pressure Management for 30 Days, #60 TAB 0 Refills Prov:Makenzie Prieto MD 12/25/16 Review of Systems Except as stated in HPI: all other systems reviewed are Neg Physical Exam Narrative General: well developed, well nourished, no acute distress HEENT: normocephalic atraumatic, extraocular movements intact, neck supple Abdomen: soft, gravid, nontender, nondistended Extremities: full range of motion, no pedal edema, no calf tenderness Skin: normal coloration, no rashes, no suspicious skin lesions noted Neurologic: cranial nerves 2-12 grossly intact, normal muscle tone, normal gait Psychiatric: normal mood and affect, appropriate FHTs: present on US Data Data Vital Signs Reviewed: Yes Orders Orders Nifedipine (Procardia) (01/30/17 14:08) Vital Signs (Adult) .ON ADMISSION (01/30/17 14:48) ^ Labor Status (01/30/17 14:48) Nifedipine (Procardia) (01/30/17 15:00) Labetalol (Trandate) (01/30/17 15:15) MDM Plan Pt is a pleasant 31y/o @ 20.1wks with cHTN who presented with HTN crisis. -- taking 300mg TID labetalol currently -- on ASA 81mg for preE ppx (has a h/o preE x2 with G1/G2) -- received 10mg PO procardia and responded well (150-160/70-80) -- discussed with Dr. Lee recommendation to change pt from labetalol to procardia given good response; she agreed with POC; Rx provided to pt for 30mg XL; first dose this evening; pt given parameters and instructed to monitor BPs at home; I will speak with her tmw AM (cell phone numbers exchanged ) and over the next several days that I am regional driver in order to monitor and determine if BID dosing is necessary; strict precautions reviewed Dispo: stable for d/c home Diagnosis Diagnosis: Primary Impression: 20 weeks gestation of Additional Impressions: Chronic hypertension with exacerbation during in second trimester History of 2 sections Morbid obesity Luis Pratt MD Jan 30, 2017 15:44
== END 2017-01-30 16:00 | disposition home or self-care (01) ==
LOC: HOBED 13:50
DX: O10.912 Unspecified pre-existing hypertension complicating pregnancy, second trimester (principal); O99.212 Obesity complicating pregnancy, second trimester; Z3A.20 20 weeks gestation of pregnancy
CPT/HCPCS: 99284

== ENCOUNTER → 2017-01-30 | Outpatient (CLI) | payer MEDICAID ==
[~2017-01-30] MED LIST changes: +ASPI81 CHEW; -LABE100T2 PO; +LABE300T PO; -MACR100C2 PO; -TYLE325T PO
== END ==
LOC: HPND 11:32
PROVIDERS: ATTEND Obstetrics & Gynecology
DX: O99.012 Anemia complicating pregnancy, second trimester (principal); O36.1120 Maternal care for Anti-A sensitization, second trimester, not applicable or unspecified; O10.012 Pre-existing essential hypertension complicating pregnancy, second trimester
CPT/HCPCS: 76815; 76821

== ENCOUNTER → 2017-02-06 | Outpatient (CLI) | payer MEDICAID | LOC: HPND 10:09 | PROVIDERS: ATTEND Obstetrics & Gynecology | DX: O36.1120 Maternal care for Anti-A sensitization, second trimester, not applicable or unspecified (principal); O10.012 Pre-existing essential hypertension complicating pregnancy, second trimester; O99.012 Anemia complicating pregnancy, second trimester | CPT/HCPCS: 76815; 76821 ==

== ENCOUNTER 2017-02-21 13:14 | Observation (INO) | payer MEDICAID, OTHER ==
--- NOTE | 2017-02-21 14:12 | HHI.HP ---
HPI Chief Complaint Blood pressure Date Seen: Feb 21, 2017 Time Seen: 14:00 Travel History International Travel<30 Days: No Contact w/Intl Traveler<30Days: No Known Affected Area: No History of Present Illness HPI Patient is 31-year-old female previous 2 at 23 weeks sees for care and presents to OB defect check a blood pressure and labs at admission for 24-hour observation. Has history of chronic hypertension on labetalol. 300 mg 3 times a day and her pressures were still high on that dose and so her OB doctor.stopped Labetalol and was started on Procardia 30 XL daily the patient admits immediately began having bad migraine headaches on that medication before she was not having a problem prior and her blood pressures are 180/94 on 170s over 100 Weeks Gestation: 23 Para: 2 : 3 History Past Medical History Narrative Medical Chronic hypertension on medication Obesity Obstetric History Obstetric History 2 previous C-sections with preeclampsia and high blood pressure with both Past Surgical History Narrative Surgical C-sections 2 Family History Family History: Social History Alcohol Use: No Tobacco Use: No Substance Abuse: No Allergies-Medications (Allergen,Severity, Reaction): Coded Allergies: Sulfa (Sulfonamide Antibiotics) (Unverified Allergy, Severe, swell, ) diatrizoate meglumine (Unverified Allergy, Severe, VOMITING , 12/25/16) droperidol (Unverified Allergy, Severe, Anaphylaxis, 12/25/16) gadobenic acid (Unverified Allergy, Severe, VOMITING , 12/25/16) gadodiamide (Unverified Allergy, Severe, VOMITING , 12/25/16) gadoteridol (Unverified Allergy, Severe, VOMITING , 12/25/16) iodixanol (Unverified Allergy, Severe, VOMITING , 12/25/16) iohexol (Unverified Allergy, Severe, VOMITING , 12/25/16) ketorolac (Unverified Allergy, Severe, ITCHING, 12/25/16) oxycodone (Unverified Allergy, Severe, DIFFICULTY BREATHING, 12/25/16) ibuprofen (Unverified Adverse Reaction, Unknown, TOLD NOT TO TAKE DUE TO KIDNEY DISORDERS, 12/25/16) Home Meds Active Scripts Labetalol (Labetalol) 300 Mg Tab, 300 MG PO TID for Blood Pressure Management for 30 Days, #90 TAB 0 Refills Prov:Galo Guillaume MD 01/25/17 Aspirin (Tgt Aspirin) 81 Mg Chw, 81 MG CHEW DAILY for Asthma Management, #30 EA 1 Refill Prov:Galo Guillaume MD 01/25/17 Review of Systems General / Constitutional: No: Fever, Weight Gain, Chills, Other Eyes: No: Diploplia, Blurred Vision, Visual changes, Pain, Photophobia HENT: Headaches, No: Vertigo, Lightheadedness Cardiovascular: No: Irregular Rhythm, Chest Pain or Discomfort, Palpitations, Tachycardia, Syncope, Varicosities, Edema, Cyanosis Respiratory: No: Cough, Short of Breath, Other Gastrointestinal: No: Nausea, Vomiting, Diarrhea Genitourinary: No: Decreased Urinary Output, Oliguria Musculoskeletal: No: Limited ROM, Weakness, Cramping, Edema, Pain Skin: No Rash, No Itching, No Dryness, No Lumps, No Change in Pigmentation, No Change in Nails, No Alopecia, No Lesions Neurologic: No: Weakness, Dizziness, Syncope, Focal Abnormalities, Coordination Problem, Headache, Slurred Speech, Seizures Psychiatric: No: Depression, Suicidal Ideations, Homicidal Ideation Endocrine: No: Heat Intolerance, Cold Intolerance, Polydipsia, Polyuria, Other Physical Exam Narrative GENERAL: Well-nourished, obese patient. SKIN: Warm and dry. HEAD: Normocephalic and atraumatic. EYES: No scleral icterus. No injection or drainage. ENT: No nasal drainage noted. Mucous membranes pink. Airway patent. NECK: Supple, trachea midline. No JVD. CARDIOVASCULAR: Regular rate and rhythm without murmurs, gallops, or rubs. RESPIRATORY: Breath sounds equal bilaterally. No accessory muscle use. BREASTS: Bilateral exam showed no masses , no retractions, no nipple discharge. ABDOMEN/GI: Abdomen soft, non-tender, bowel sounds present, no rebound, no guarding Gravid to [-23] weeks size Fundal Height: [-23] Membranes: [intact ] Uterine Contractions: [-none] FHT's: Category: [1-] Baseline: [133-] Reactive: [yes for 23 wks-] EXTREMITIES: No cyanosis or edema. BACK: Nontender without obvious deformity. No CVA tenderness. NEUROLOGICAL: Awake and alert. Motor and sensory grossly within normal limits. Five out of 5 muscle strength in all muscle groups. Normal speech. Caprini VTE Risk Assessment Caprini VTE Risk Assessment: No/Low Risk (score <= 1) Caprini Risk Assessment Model Point Value = 1 Point Value = 2 Point Value = 3 Point Value = 5 Age 41-60 Minor surgery BMI > 25 kg/m2 Swollen legs Varicose veins or History of unexplained or recurrent spontaneous Oral contraceptives or hormone replacement Sepsis (< 1 month) Serious lung disease, including pneumonia (< 1 month) Abnormal pulmonary function Acute myocardial infarction Congestive heart failure (< 1 month) History of inflammatory bowel disease Medical patient at bed rest Age 61-74 Arthroscopic surgery Major open surgery (> 45 min) Laparoscopic surgery (> 45 min) Malignancy Confined to bed (> 72 hours) Immobilizing plaster cast Central venous access Age >= 75 History of VTE Family history of VTE Factor V Leiden Prothrombin [id number] Lupus anticoagulant Anticardiolipin antibodies Elevated serum homocysteine Heparin-induced thrombocytopenia Other congenital or acquired thrombophilia Stroke (< 1 month) Elective arthroplasty Hip, pelvis, or leg fracture Acute spinal cord injury (< 1 month) Prophylaxis Regimen Total Risk Factor Score Risk Level Prophylaxis Regimen 0-1 Low Early ambulation 2 Moderate Order ONE of the following: *Sequential Compression Device (SCD) *Heparin 5000 units SQ BID 3-4 Higher Order ONE of the following medications: *Heparin 5000 units SQ TID *Enoxaparin/Lovenox 40 mg SQ daily (WT < 150 kg, CrCl > 30 mL/min) *Enoxaparin/Lovenox 30 mg SQ daily (WT < 150 kg, CrCl > 10-29 mL/min) *Enoxaparin/Lovenox 30 mg SQ BID (WT < 150 kg, CrCl > 30 mL/min) AND/OR *Sequential Compression Device (SCD) 5 or more Highest Order ONE of the following medications: *Heparin 5000 units SQ TID (Preferred with Epidurals) *Enoxaparin/Lovenox 40 mg SQ daily (WT < 150 kg, CrCl > 30 mL/min) *Enoxaparin/Lovenox 30 mg SQ daily (WT < 150 kg, CrCl > 10-29 mL/min) *Enoxaparin/Lovenox 30 mg SQ BID (WT < 150 kg, CrCl > 30 mL/min) AND *Sequential Compression Device (SCD) Data Data Labs Urine dipstick on OB ED shows 100 of protein which could lead to approximately 2 -3+ Assessment/Plan Assessment and Plan Patient is 31-year-old white female previous 2 with a history of chronic hypertension now at 23 weeks gestation followed through the [facility] clinic and presents with elevated blood pressures after a medication change for hypertension and then I also spilling protein in her urine. She was advised by her OB doctor to come in for 23 hour observation to collect 24-hour urine and check a PIH lab as well as adjust her medication. Lane Tran MD Feb 21, 2017 14:12
[2017-02-21] MEDS: LACTATED RINGER'S 1000 ML INJ 1,000 ML IV SCH (14:24)
--- NOTE | 2017-02-21 14:24 | HHI.HP ---
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 Has history of chronic hypertension on labetalol. 300 mg 3 times a day and her pressures were still high on that dose and so her OB doctor.stopped Labetalol and was started on Procardia 30 XL daily the patient admits immediately began having bad migraine headaches on that medication before she was not having a problem prior and her blood pressures are 180/94 on 170s over 100 Weeks Gestation: 23 Para: 2 : 3 History (Limited) History Past Medical History Narrative Medical Chronic hypertension on medication Obesity Obstetric History Obstetric History 2 previous C-sections with preeclampsia and high blood pressure with both Past Surgical History Narrative Surgical C-sections 2 Family History Family History: Social History Alcohol Use: No Tobacco Use: No Substance Abuse: No Allergies-Medications Allergies-Medications (Allergen,Severity, Reaction): Coded Allergies: Sulfa (Sulfonamide Antibiotics) (Unverified Allergy, Severe, swell, ) diatrizoate meglumine (Unverified Allergy, Severe, VOMITING , 12/25/16) droperidol (Unverified Allergy, Severe, Anaphylaxis, 12/25/16) gadobenic acid (Unverified Allergy, Severe, VOMITING , 12/25/16) gadodiamide (Unverified Allergy, Severe, VOMITING , 12/25/16) gadoteridol (Unverified Allergy, Severe, VOMITING , 12/25/16) iodixanol (Unverified Allergy, Severe, VOMITING , 12/25/16) iohexol (Unverified Allergy, Severe, VOMITING , 12/25/16) ketorolac (Unverified Allergy, Severe, ITCHING, 12/25/16) oxycodone (Unverified Allergy, Severe, DIFFICULTY BREATHING, 12/25/16) ibuprofen (Unverified Adverse Reaction, Unknown, TOLD NOT TO TAKE DUE TO KIDNEY DISORDERS, 12/25/16) Home Meds Active Scripts Labetalol (Labetalol) 300 Mg Tab, 300 MG PO TID for Blood Pressure Management for 30 Days, #90 TAB 0 Refills Prov:Galo Guillaume MD 01/25/17 Aspirin (Tgt Aspirin) 81 Mg Chw, 81 MG CHEW DAILY for Asthma Management, #30 EA 1 Refill Prov:Galo Guillaume MD 01/25/17 ROS Review of Systems General / Constitutional: No: Fever, Weight Gain, Chills, Other Eyes: No: Diploplia, Blurred Vision, Visual changes, Pain, Photophobia HENT: Headaches, No: Vertigo, Lightheadedness Cardiovascular: No: Irregular Rhythm, Chest Pain or Discomfort, Palpitations, Tachycardia, Syncope, Varicosities, Edema, Cyanosis Respiratory: No: Cough, Short of Breath, Other Gastrointestinal: No: Nausea, Vomiting, Diarrhea Genitourinary: No: Decreased Urinary Output, Oliguria Musculoskeletal: No: Limited ROM, Weakness, Cramping, Edema, Pain Skin: No Rash, No Itching, No Dryness, No Lumps, No Change in Pigmentation, No Change in Nails, No Alopecia, No Lesions Neurologic: No: Weakness, Dizziness, Syncope, Focal Abnormalities, Coordination Problem, Headache, Slurred Speech, Seizures Psychiatric: No: Depression, Suicidal Ideations, Homicidal Ideation Endocrine: No: Heat Intolerance, Cold Intolerance, Polydipsia, Polyuria, Other Physical Exam Physical Exam Narrative GENERAL: Well-nourished, obese patient. SKIN: Warm and dry. HEAD: Normocephalic and atraumatic. EYES: No scleral icterus. No injection or drainage. ENT: No nasal drainage noted. Mucous membranes pink. Airway patent. NECK: Supple, trachea midline. No JVD. CARDIOVASCULAR: Regular rate and rhythm without murmurs, gallops, or rubs. RESPIRATORY: Breath sounds equal bilaterally. No accessory muscle use. BREASTS: Bilateral exam showed no masses , no retractions, no nipple discharge. ABDOMEN/GI: Abdomen soft, non-tender, bowel sounds present, no rebound, no guarding Gravid to [-23] weeks size Fundal Height: [-23] Membranes: [intact ] Uterine Contractions: [-none] FHT's: Category: [1-] Baseline: [133-] Reactive: [yes for 23 wks-] EXTREMITIES: No cyanosis or edema. BACK: Nontender without obvious deformity. No CVA tenderness. NEUROLOGICAL: Awake and alert. Motor and sensory grossly within normal limits. Five out of 5 muscle strength in all muscle groups. Normal speech. Caprini VTE Risk Assessment Caprini VTE Risk Assessment Caprini VTE Risk Assessment: No/Low Risk (score <= 1) Caprini Risk Assessment Model Point Value = 1 Point Value = 2 Point Value = 3 Point Value = 5 Age 41-60 Minor surgery BMI > 25 kg/m2 Swollen legs Varicose veins or History of unexplained or recurrent spontaneous Oral contraceptives or hormone replacement Sepsis (< 1 month) Serious lung disease, including pneumonia (< 1 month) Abnormal pulmonary function Acute myocardial infarction Congestive heart failure (< 1 month) History of inflammatory bowel disease Medical patient at bed rest Age 61-74 Arthroscopic surgery Major open surgery (> 45 min) Laparoscopic surgery (> 45 min) Malignancy Confined to bed (> 72 hours) Immobilizing plaster cast Central venous access Age >= 75 History of VTE Family history of VTE Factor V Leiden Prothrombin [id number] Lupus anticoagulant Anticardiolipin antibodies Elevated serum homocysteine Heparin-induced thrombocytopenia Other congenital or acquired thrombophilia Stroke (< 1 month) Elective arthroplasty Hip, pelvis, or leg fracture Acute spinal cord injury (< 1 month) Prophylaxis Regimen Total Risk Factor Score Risk Level Prophylaxis Regimen 0-1 Low Early ambulation 2 Moderate Order ONE of the following: *Sequential Compression Device (SCD) *Heparin 5000 units SQ BID 3-4 Higher Order ONE of the following medications: *Heparin 5000 units SQ TID *Enoxaparin/Lovenox 40 mg SQ daily (WT < 150 kg, CrCl > 30 mL/min) *Enoxaparin/Lovenox 30 mg SQ daily (WT < 150 kg, CrCl > 10-29 mL/min) *Enoxaparin/Lovenox 30 mg SQ BID (WT < 150 kg, CrCl > 30 mL/min) AND/OR *Sequential Compression Device (SCD) 5 or more Highest Order ONE of the following medications: *Heparin 5000 units SQ TID (Preferred with Epidurals) *Enoxaparin/Lovenox 40 mg SQ daily (WT < 150 kg, CrCl > 30 mL/min) *Enoxaparin/Lovenox 30 mg SQ daily (WT < 150 kg, CrCl > 10-29 mL/min) *Enoxaparin/Lovenox 30 mg SQ BID (WT < 150 kg, CrCl > 30 mL/min) AND *Sequential Compression Device (SCD) Data Data Data Labs Urine dipstick on OB ED shows 100 of protein which could lead to approximately 2 -3+ OB Assessment/Plan Assessment/Plan Assessment and Plan Patient is 31-year-old white female previous 2 with a history of chronic hypertension now at 23 weeks gestation followed through the [facility] clinic and presents with elevated blood pressures after a medication change for hypertension and then I also spilling protein in her urine. She was advised by her OB doctor to come in for 23 hour observation to collect 24-hour urine and check a PIH lab as well as adjust her medication. Aris Zimmer MD Feb 21, 2017 14:12 Aris Zimmer II, MD Feb 21, 2017 14:24
[2017-02-21] MEDS ORDERED: CALCIUM GLUCONATE 10% 1 GM/10 ML VIAL IV PUSH PRN (14:30)
[2017-02-21] MEDS ORDERED: ONDANSETRON HCL 4 MG/2 ML VIAL IV PUSH PRN (14:30)
[2017-02-21] MEDS ORDERED: DOCUSATE SODIUM 100 MG CAP PO PRN (14:30)
[2017-02-21] MEDS ORDERED: ZOLPIDEM TARTRATE 5 MG TAB PO PRN (14:30)
[2017-02-21] MEDS ORDERED: ACETAMINOPHEN 325 MG TAB PO PRN (14:30)
[2017-02-21] MEDS ORDERED: LABETALOL HCL 100 MG/20 ML VIAL IV PUSH PRN (14:30)
[2017-02-21] MEDS ORDERED: SODIUM CHLORIDE 0.9% FLUSH 10 ML FLUSH IV FLUSH PRN (14:30)
[2017-02-21] MEDS ORDERED: ONDANSETRON ODT 4 MG TAB PO PRN (14:30)
[2017-02-21 14:59] LABS: BACTERIA, URINE MANY /hpf; BLOOD, URINE SMALL (NEG); GLUCOSE,URINE NEG (NEG); HYALINE CAST, URINE 9 /lpf (RARE); KETONE, URINE NEG (NEG); MUCUS URINE FEW /lpf (OCC); NITRITE,URINE NEG (NEG); SQUAMOUS EPITHELIAL CELL URINE 58 /hpf (0-5); URINE COLOR YELLOW (YELLW/STRAW)
[2017-02-21 15:02] LABS: COMMENT (UR) CATH-CULTURE IND; CULTURE IF INDICATED CATH CULTURE IND
[2017-02-21] MEDS ORDERED: LABETALOL HCL 300 MG TAB PO ONE (15:30)
[2017-02-21 16:43] LABS: MEAN CELL VOLUME 87.6 FL (80.0-100.0); MEAN CORPUSCULAR HEMOGLOBIN 31.3 PG (27.0-34.0); MEAN CORPUSCULAR HGB CONC 35.7 % (32.0-36.0); PLATELET COUNT 343 TH/MM3 (150-450); RED BLOOD COUNT 4.22 MIL/MM3 (4.00-5.30); RED CELL DISTRIBUTION WIDTH 15.9 % (11.6-17.2); REVIEW FLAG FINAL; WHITE BLOOD COUNT 15.2 TH/MM3 (4.0-11.0)
[2017-02-21 17:05] LABS: ANION GAP 13 MEQ/L (5-15); AST (GOT) 25 U/L (15-37); BICARBONATE 20.3 MEQ/L (21.0-32.0); BLOOD UREA NITROGEN 11 MG/DL (7-18); CHLORIDE 106 MEQ/L (98-107); GLOMERULAR FILTRATION RATE 85 ML/MIN (>89); POTASSIUM 3.6 MEQ/L (3.5-5.1); SODIUM (NA) 139 MEQ/L (136-145); URIC ACID 5.3 MG/DL (2.6-6.0)
[2017-02-21 17:06] LABS: ALT (GPT) 27 U/L (10-53)
[2017-02-21 17:08] LABS: ALKALINE PHOSPHATASE 119 U/L (45-117); TOTAL BILIRUBIN ADULT 0.3 MG/DL (0.2-1.0)
[2017-02-21] MEDS: SODIUM CHLORIDE 0.9% FLUSH 10 ML FLUSH IV FLUSH SCH (21:00)
[2017-02-21] MEDS ORDERED: LABETALOL HCL 300 MG TAB PO SCH (22:00)
[2017-02-21] MEDS: LABETALOL HCL 300 MG TAB PO SCH (23:00)
[2017-02-22] MEDS: LACTATED RINGER'S 1000 ML INJ 1,000 ML IV SCH (03:44)
[2017-02-22] MEDS: LABETALOL HCL 300 MG TAB PO SCH (06:51)
[2017-02-22] MEDS: SODIUM CHLORIDE 0.9% FLUSH 10 ML FLUSH IV FLUSH SCH (09:00)
[2017-02-22] MEDS ORDERED: MULTIVIT/MIN/PREN/FOL AC/IRON PRENATAL TAB PO SCH (09:00)
--- NOTE | 2017-02-22 09:13 | HHI.PR ---
LABORER PLUMBING Note Note S: Patient did well, no complaints of headache, blurred vision, epigastric pain O: Exam: Deferred FHTs: 150s moderate Variability, occasional variable, TOCO:Rare contraction A/P 31-year-old 002 at 23 weeks and 3 days here for r/o SIPREC 1. IUP: Daily NST - Female fetus - EFW on 02/13/17 = 516g, ant placenta, normal anatomy. 2. Chronic hypertension/rule out superimposed preeclampsia: Patient here to collect repeat 24-hour urine, most recently on 01/25/2017 had a 24-hour urine 624 mg, upon further discussion with the patient she has a urologist Dr. Pickens due to her medullary sponge kidney disease and states she has pre- existing proteinuria and she says is above 400mg outside of . Patient most recently was on labetalol 300 mg 3 times a day as an outpatient and seemed to not be well controlled and was switched to Procardia 30mg XL BID , however she developed headache as a side effect and discontinued this, currently her blood pressures are modestly controlled with the labetalol 300 mg 3 times a day here, will increase to 400mg TID. - Will observe until 24 hour urine results, and blood pressures optimized. Likely d/c later today or tomorrow. 3. History of 2: Will be for repeat 4. Rh alloimmunization: Patient is followed by MFM specialist here for weekly MCA dop, normal on 02/13. Galo Guillaume MD Feb 22, 2017 09:13
[2017-02-22] MEDS ORDERED: LABETALOL HCL 200 MG TAB PO SCH (13:00)
[2017-02-22] MEDS ORDERED: LABE300T PO ×2 (16:32→16:35)
--- NOTE | 2017-02-22 16:33 | HHI.DS ---
Admission Date Feb 21, 2017 at 14:18 Discharge Date: Feb 22, 2017 Admitting Diagnosis Diagnosis: (1) Elevated blood pressure reading Diagnosis: Principal ICD Codes: R03.0 - Elevated blood-pressure reading, without diagnosis of hypertension Status: Acute (2) Chronic hypertension with exacerbation during in second trimester Diagnosis: Principal ICD Codes: O10.912 - Unspecified pre-existing hypertension complicating , second trimester Status: Acute Brief History Patient is 31-year-old female at 23 weeks and 3 days admitted for exacerbation of chronic hypertension versus superimposed preeclampsia, she recently had been on labetalol 300 mg 3 times a day as an outpatient, had poor control and was switched to Procardia 30 mg XL twice a day, developed headaches and other side effects and was not taking and then at her outpatient visit had severe range BPs, was asymptomatic and was admitted to rule out preeclampsia. Her blood pressures were optimally controlled and mild range to normotensive on Labetalol 400 mg 3 times a day during her observation. Her original 24 urine protein on 01/15/2017 was 624 mg, on repeat during her current admission was 631 mg which is essentially unchanged. Pt Condition on Discharge: Good Discharge Disposition: Discharge Home Discharge Instructions Diet Instructions: As Tolerated, No Restrictions Activities You Can Perform: Continue Bedrest Follow up Referrals: [facility] - 1 Week @ [place] [facility] [employer] with Radhika Wang MD, Zachary Sloan MD Feb 22, 2017 16:33
[2017-02-22 18:51] LABS: URINE TOTAL PROTEIN TIMED 30.4 MG/DL
[2017-02-22 18:54] LABS: CREAT 24 TIMED 89.7 MG/DL
== END 2017-02-22 17:43 | disposition home or self-care (01) ==
LOC: HOBED 13:14 → H2EA 14:18
PROVIDERS: ADMIT Obstetrics & Gynecology; ATTEND Obstetrics & Gynecology
DX: O10.912 Unspecified pre-existing hypertension complicating pregnancy, second trimester (principal); O99.352 Diseases of the nervous system complicating pregnancy, second trimester; G43.909 Migraine, unspecified, not intractable, without status migrainosus; O99.212 Obesity complicating pregnancy, second trimester; Z79.899 Other long term (current) drug therapy; Z3A.23 23 weeks gestation of pregnancy
CPT/HCPCS: 80053; 81001; 82570; 84157; 84550; 85027; 87086; J7120; 96374; G0378

== ENCOUNTER 2017-03-15 15:20 | Emergency (ER) | payer MEDICAID ==
--- NOTE | 2017-03-15 16:44 | PD ---
HPI Chief Complaint Abdominal pain Date Seen: Mar 15, 2017 Time Seen: 16:35 Travel History International Travel<30 Days: No Contact w/Intl Traveler<30Days: No Known Affected Area: No History of Present Illness HPI 31-year-old 3 para 2 at 26 weeks gestation who reports that around 1 PM this afternoon she was grocery shopping when she expressed a sharp lower abdominal pain. She states that this pain was constant and 8 of 10 while standing. She was able to reduce the pain to 4 of10 by sitting. She denies any bleeding, leakage of fluid, hematuria dysuria or frequency. She has had multiple kidney stones in the past but this does not feel like it is a kidney stone. She came in because of concerns for the baby's well-being. She is followed as a high-risk with Dr. Wang. She has a history of chronic hypertension for which she uses labetalol 400 mg 3 times a day. She has medullary sponge kidney disease. She also has a blood antibody Ochoa for which she was receiving serial ultrasound studies with . History Past Medical History Narrative Medical Medullary sponge kidney Chronic hypertension Antibody screen positive Obstetric History Obstetric History 2 prior C-sections, history of superimposed preeclampsia with prior AST positive, chronic hypertension on medication, medullary sponge kidney Past Surgical History Narrative Surgical 2 Family History Family History: Negative Social History Alcohol Use: No Tobacco Use: No Substance Abuse: No Allergies-Medications (Allergen,Severity, Reaction): Coded Allergies: Sulfa (Sulfonamide Antibiotics) (Unverified Allergy, Severe, swell, ) diatrizoate meglumine (Unverified Allergy, Severe, VOMITING , 12/25/16) droperidol (Unverified Allergy, Severe, Anaphylaxis, 12/25/16) gadobenic acid (Unverified Allergy, Severe, VOMITING , 12/25/16) gadodiamide (Unverified Allergy, Severe, VOMITING , 12/25/16) gadoteridol (Unverified Allergy, Severe, VOMITING , 12/25/16) iodixanol (Unverified Allergy, Severe, VOMITING , 12/25/16) iohexol (Unverified Allergy, Severe, VOMITING , 12/25/16) ketorolac (Unverified Allergy, Severe, ITCHING, 12/25/16) oxycodone (Unverified Allergy, Severe, DIFFICULTY BREATHING, 12/25/16) ibuprofen (Unverified Adverse Reaction, Unknown, TOLD NOT TO TAKE DUE TO KIDNEY DISORDERS, 12/25/16) Home Meds Active Scripts Labetalol (Labetalol) 300 Mg Tab, 400 MG PO TID for Blood Pressure Management for 30 Days, TAB 0 Refills Prov:Galo Guillaume MD 02/22/17 Aspirin (Tgt Aspirin) 81 Mg Chw, 81 MG CHEW DAILY for Asthma Management, #30 EA 1 Refill Prov:Galo Guillaume MD 01/25/17 Review of Systems Except as stated in HPI: all other systems reviewed are Neg Physical Exam Narrative GENERAL: Well-nourished, well-developed patient. SKIN: Warm and dry. HEAD: Normocephalic and atraumatic. EYES: No scleral icterus. No injection or drainage. ENT: No nasal drainage noted. Mucous membranes pink. Airway patent. NECK: Supple, trachea midline. No JVD. CARDIOVASCULAR: Regular rate and rhythm without murmurs, gallops, or rubs. RESPIRATORY: Breath sounds equal bilaterally. No accessory muscle use. ABDOMEN/GI: Abdomen soft, non-tender, bowel sounds present, no rebound, no guarding Gravid to [-] weeks size Fundal Height: [-] GENITOURINARY: External Genitalia: intact and normal in appearance BUS glands: [-] Cervix: [-] Dilatation: [-] Effacement: [-] Station: [-] Presentation: [-] Membranes: [intact or ruptured] Uterine Contractions: [-] FHT's: Category: [-] Baseline: [-] Reactive: [-] Variability: [-] Decels: [-] EXTREMITIES: No cyanosis or edema. BACK: Nontender without obvious deformity. No CVA tenderness. NEUROLOGICAL: Awake and alert. Motor and sensory grossly within normal limits. Five out of 5 muscle strength in all muscle groups. Normal speech. Data Data Vital Signs Reviewed: Yes Orders Orders Vital Signs (Adult) .ON ADMISSION (03/15/17 16:29) ^ Labor Status (03/15/17 16:29) Urinalysis - C+S If Indicated (03/15/17 16:29) ^ Non Stress Test (03/15/17 16:29) MDM Medical Record Reviewed: Yes Narrative Course / MDM Assessment: Brief lower abdominal pain at 26 weeks gestation without evidence of pathology Plan: Continue follow-up as scheduled for care. Precautions regarding return to the ED were reviewed with her. Diagnosis Diagnosis: Primary Impression: 26 weeks gestation of Additional Impression: Pain of round ligament Disposition: 01 DISCHARGE HOME Poli Cruz MD Mar 15, 2017 16:44
[2017-03-15 17:42] LABS: BACTERIA, URINE OCC /hpf; BILIRUBIN, URINE NEG (NEG); BLOOD, URINE NEG (NEG); GLUCOSE,URINE NEG (NEG); HYALINE CAST, URINE 3 /lpf (RARE); KETONE, URINE NEG (NEG); MUCUS URINE FEW /lpf (OCC); NITRITE,URINE NEG (NEG); PH, URINE 6.5 (5.0-8.5); SQUAMOUS EPITHELIAL CELL URINE 6 /hpf (0-5); URINE COLOR YELLOW (YELLW/STRAW); URINE LEUKOCYTE ESTERASE LARGE (NEG)
== END 2017-03-15 17:00 | disposition home or self-care (01) ==
LOC: HOBED 15:20
DX: O26.892 Other specified pregnancy related conditions, second trimester (principal); R10.2 Pelvic and perineal pain; O10.912 Unspecified pre-existing hypertension complicating pregnancy, second trimester; Z3A.26 26 weeks gestation of pregnancy
CPT/HCPCS: 81001; 99284

== ENCOUNTER 2017-03-27 12:22 | Inpatient (IN) | payer MEDICAID ==
[2017-03-27] VITALS (86 sets, daily range): BP systolic 144–185; BP diastolic 59–99; PULSE 18–185; RESP 18–20; TEMP 98.7
[~2017-03-27] VITALS: Ht 170.2 cm; Wt 127.0 kg
[2017-03-27 13:47] LABS: HEMATOCRIT 35.8 % (35.0-46.0); HEMOGLOBIN 12.5 GM/DL (11.6-15.3); MEAN CELL VOLUME 91.2 FL (80.0-100.0); MEAN CORPUSCULAR HEMOGLOBIN 31.8 PG (27.0-34.0); MEAN CORPUSCULAR HGB CONC 34.9 % (32.0-36.0); MEAN PLATELET VOLUME 8.4 FL (7.0-11.0); PLATELET COUNT 330 TH/MM3 (150-450); RED BLOOD COUNT 3.92 MIL/MM3 (4.00-5.30); RED CELL DISTRIBUTION WIDTH 15.1 % (11.6-17.2); WHITE BLOOD COUNT 13.9 TH/MM3 (4.0-11.0)
[2017-03-27 14:00] LABS: BACTERIA, URINE MOD /hpf; BILIRUBIN, URINE NEG (NEG); BLOOD, URINE NEG (NEG); GLUCOSE,URINE NEG (NEG); KETONE, URINE NEG (NEG); MUCUS URINE FEW /lpf (OCC); NITRITE,URINE NEG (NEG); SQUAMOUS EPITHELIAL CELL URINE 13 /hpf (0-5); URINE COLOR DARK-YELLOW (YELLW/STRAW); URINE LEUKOCYTE ESTERASE LARGE (NEG)
[2017-03-27 14:06] LABS: ALKALINE PHOSPHATASE 144 U/L (45-117); ALT (GPT) 25 U/L (10-53); TOTAL BILIRUBIN ADULT 0.1 MG/DL (0.2-1.0); TOTAL PROTEIN 6.6 GM/DL (6.4-8.2)
[2017-03-27] MEDS: LACTATED RINGER'S 1000 ML INJ 1,000 ML IV SCH ×2 (14:10→18:25)
--- NOTE | 2017-03-27 14:10 | PD ---
HPI Chief Complaint Chronic hypertension Date Seen: Mar 27, 2017 Time Seen: 13:30 Travel History International Travel<30 Days: No Contact w/Intl Traveler<30Days: No Known Affected Area: No History of Present Illness HPI Patient is 31-year-old white female at [address] Wang for care and is referred up from OB diagnostics in the perinatologist for evaluation of hypertension and rule out preeclampsia, patient has chronic hypertension she is on 400 labetalol 3 times a day and pressures typically run 130 to 170/70-100 , she has chronic K kidney disease has had that prior to and an routinely spelled 400 mg of protein in 24 hours when she is not during her she spell 600 mg in 24 hours and the specimen checked multiple times with similar levels was recently done turned in 2 days ago. Patient feels good ,she has no headache blurry vision spots in front of her eyes or right upper quadrant pain. heart rate is reactive 28 weeks and she is not carlee. Weeks Gestation: 28 Para: 2 : 3 History Past Medical History Narrative Medical Chronic hypertension on medication, chronic renal disease with moderate to large amount of proteinuria chronically Obstetric History Obstetric History Previous C-sections 2 Social History Alcohol Use: No Tobacco Use: No Substance Abuse: No Allergies-Medications (Allergen,Severity, Reaction): Coded Allergies: Sulfa (Sulfonamide Antibiotics) (Unverified Allergy, Severe, swell, ) diatrizoate meglumine (Unverified Allergy, Severe, VOMITING , 12/25/16) droperidol (Unverified Allergy, Severe, Anaphylaxis, 12/25/16) gadobenic acid (Unverified Allergy, Severe, VOMITING , 12/25/16) gadodiamide (Unverified Allergy, Severe, VOMITING , 12/25/16) gadoteridol (Unverified Allergy, Severe, VOMITING , 12/25/16) iodixanol (Unverified Allergy, Severe, VOMITING , 12/25/16) iohexol (Unverified Allergy, Severe, VOMITING , 12/25/16) ketorolac (Unverified Allergy, Severe, ITCHING, 12/25/16) oxycodone (Unverified Allergy, Severe, DIFFICULTY BREATHING, 12/25/16) ibuprofen (Unverified Adverse Reaction, Unknown, TOLD NOT TO TAKE DUE TO KIDNEY DISORDERS, 12/25/16) Home Meds Active Scripts Labetalol (Labetalol) 300 Mg Tab, 400 MG PO TID for Blood Pressure Management for 30 Days, TAB 0 Refills Prov:Galo Guillaume MD 02/22/17 Aspirin (Tgt Aspirin) 81 Mg Chw, 81 MG CHEW DAILY for Asthma Management, #30 EA 1 Refill Prov:Galo Guillaume MD 01/25/17 Review of Systems General / Constitutional: No: Fever, Weight Gain, Chills, Other Eyes: No: Diploplia, Blurred Vision, Visual changes, Pain, Photophobia HENT: No: Headaches, Vertigo, Lightheadedness Cardiovascular: No: Irregular Rhythm, Chest Pain or Discomfort, Palpitations, Tachycardia, Syncope, Varicosities, Edema, Cyanosis Respiratory: No: Cough, Short of Breath, Other Gastrointestinal: No: Nausea, Vomiting, Diarrhea Genitourinary: No: Decreased Urinary Output, Oliguria Musculoskeletal: No: Limited ROM, Weakness, Cramping, Edema, Pain Skin: No Rash, No Itching, No Dryness, No Lumps, No Change in Pigmentation, No Change in Nails, No Alopecia, No Lesions Neurologic: No: Weakness, Dizziness, Syncope, Focal Abnormalities, Coordination Problem, Headache, Slurred Speech, Seizures Psychiatric: No: Depression, Suicidal Ideations, Homicidal Ideation Endocrine: No: Heat Intolerance, Cold Intolerance, Polydipsia, Polyuria, Other Physical Exam Narrative GENERAL: Well-nourished, obese patient. SKIN: Warm and dry. HEAD: Normocephalic and atraumatic. EYES: No scleral icterus. No injection or drainage. ENT: No nasal drainage noted. Mucous membranes pink. Airway patent. NECK: Supple, trachea midline. No JVD. CARDIOVASCULAR: Regular rate and rhythm without murmurs, gallops, or rubs. RESPIRATORY: Breath sounds equal bilaterally. No accessory muscle use. BREASTS: Bilateral exam showed no masses , no retractions, no nipple discharge. ABDOMEN/GI: Abdomen soft, non-tender, bowel sounds present, no rebound, no guarding Gravid to [28-] weeks size Fundal Height: [-28] GENITOURINARY: External Genitalia: intact and normal in appearance Presentation: [-] Membranes: [intact ] Uterine Contractions: [none-] FHT's: Category: [-1] Baseline: [133-] Reactive: [-R] Variability: [mod-] Decels: [none-] EXTREMITIES: No cyanosis or edema. BACK: Nontender without obvious deformity. No CVA tenderness. NEUROLOGICAL: Awake and alert. Motor and sensory grossly within normal limits. Five out of 5 muscle strength in all muscle groups. Normal speech. Data Data Orders Orders Urinalysis - C+S If Indicated (03/27/17 13:10) Cbc No Diff, Includes Plts (03/27/17 13:10) Comprehensive Metabolic Panel (03/27/17 13:10) Uric Acid (03/27/17 13:10) Labs 24hr urine protein-- 6261 mg Laboratory Tests Test 03/27/17 13:00 White Blood Count 13.9 Red Blood Count 3.92 Hemoglobin 12.5 Hematocrit 35.8 Mean Corpuscular Volume 91.2 Mean Corpuscular Hemoglobin 31.8 Mean Corpuscular Hemoglobin Concent 34.9 Red Cell Distribution Width 15.1 Platelet Count 330 Mean Platelet Volume 8.4 MDM Interpretation(s) Patient is 31-year-old white female at 28 weeks chronic hypertension and now superimposed preeclampsia with a large amount of proteinuria increase she's now spilling 6000 mg in 24 hours where the past she's been spilling [address] Wang called about the patient wants her admitted the hospital at this time Plan Plan to admit the patient hospital, IM steroids, and patient bedrest observation care directed by her OB provider Dr. Wang Diagnosis Diagnosis: Primary Impression: Pre-eclampsia superimposed on chronic hypertension, antepartum Additional Impression: 28 weeks gestation of Aris Zimmer II, MD Mar 27, 2017 14:10
[2017-03-27 14:12] LABS: ALBUMIN 2.4 GM/DL (3.4-5.0); AST (GOT) 28 U/L (15-37); BLOOD UREA NITROGEN 16 MG/DL (7-18); CALCIUM 9.6 MG/DL (8.5-10.1); CHLORIDE 108 MEQ/L (98-107); CREATININE 0.68 MG/DL (0.50-1.00); GLOMERULAR FILTRATION RATE 100 ML/MIN (>89); GLUCOSE,RANDOM 93 MG/DL (74-106); SODIUM (NA) 138 MEQ/L (136-145)
[2017-03-27] MEDS ORDERED: LABETALOL HCL 100 MG/20 ML VIAL IV PUSH PRN (14:15)
[2017-03-27] MEDS ORDERED: DOCUSATE SODIUM 100 MG CAP PO PRN (14:15)
[2017-03-27] MEDS ORDERED: CALCIUM GLUCONATE 10% 1 GM/10 ML VIAL IV PUSH PRN ×2 (14:15→17:00)
[2017-03-27] MEDS ORDERED: SODIUM CHLORIDE 0.9% FLUSH 10 ML FLUSH IV FLUSH PRN (14:15)
[2017-03-27] MEDS ORDERED: ONDANSETRON HCL 4 MG/2 ML VIAL IV PUSH PRN (14:15)
[2017-03-27] MEDS ORDERED: ACETAMINOPHEN 325 MG TAB PO PRN (14:15)
[2017-03-27] MEDS: BETAMETHASONE SOD PHOS/ACETATE SUSP 30 MG/5 ML VIAL IM SCH (14:59)
[2017-03-27] MEDS: LABETALOL HCL 200 MG TAB PO SCH (16:43)
[2017-03-27] MEDS ORDERED: MAGNESIUM SULFATE 40 GM PREMIX 1,000 ML IV SCH (17:00)
--- NOTE | 2017-03-27 19:07 | HHI.HP ---
History & Physical H&P OB ED Note (Detail) Patient Name: Sheridan Brumfield Unit Number: [id number] Date of : 1985 Patient Status: Admitted Inpatient Attending Doctor: Sadaf Finley MD HPI HPI Chief Complaint Chronic hypertension Date Seen: Mar 27, 2017 Time Seen: 13:30 Travel History International Travel<30 Days: No Contact w/Intl Traveler<30Days: No Known Affected Area: No History of Present Illness HPI Patient is 31-year-old white female at [address] Wang for care and is referred up from OB diagnostics in the perinatologist for evaluation of hypertension and rule out preeclampsia, patient has chronic hypertension she is on 400 labetalol 3 times a day and pressures typically run 130 to 170/70-100 , she has chronic K kidney disease has had that prior to and an routinely spelled 400 mg of protein in 24 hours when she is not during her she spell 600 mg in 24 hours and the specimen checked multiple times with similar levels was recently done turned in 2 days ago. Patient feels good ,she has no headache blurry vision spots in front of her eyes or right upper quadrant pain. heart rate is reactive 28 weeks and she is not carlee. Weeks Gestation: 28 Para: 2 : 3 History (Limited) History Past Medical History Narrative Medical Chronic hypertension on medication, chronic renal disease with moderate to large amount of proteinuria chronically Obstetric History Obstetric History Previous C-sections 2 Social History Alcohol Use: No Tobacco Use: No Substance Abuse: No Allergies-Medications Allergies-Medications (Allergen,Severity, Reaction): Coded Allergies: Sulfa (Sulfonamide Antibiotics) (Unverified Allergy, Severe, swell, ) diatrizoate meglumine (Unverified Allergy, Severe, VOMITING , 12/25/16) droperidol (Unverified Allergy, Severe, Anaphylaxis, 12/25/16) gadobenic acid (Unverified Allergy, Severe, VOMITING , 12/25/16) gadodiamide (Unverified Allergy, Severe, VOMITING , 12/25/16) gadoteridol (Unverified Allergy, Severe, VOMITING , 12/25/16) iodixanol (Unverified Allergy, Severe, VOMITING , 12/25/16) iohexol (Unverified Allergy, Severe, VOMITING , 12/25/16) ketorolac (Unverified Allergy, Severe, ITCHING, 12/25/16) oxycodone (Unverified Allergy, Severe, DIFFICULTY BREATHING, 12/25/16) ibuprofen (Unverified Adverse Reaction, Unknown, TOLD NOT TO TAKE DUE TO KIDNEY DISORDERS, 12/25/16) Home Meds Active Scripts Labetalol (Labetalol) 300 Mg Tab, 400 MG PO TID for Blood Pressure Management for 30 Days, TAB 0 Refills Prov:Galo Guillaume MD 02/22/17 Aspirin (Tgt Aspirin) 81 Mg Chw, 81 MG CHEW DAILY for Asthma Management, #30 EA 1 Refill Prov:Galo Guillaume MD 01/25/17 ROS Review of Systems General / Constitutional: No: Fever, Weight Gain, Chills, Other Eyes: No: Diploplia, Blurred Vision, Visual changes, Pain, Photophobia HENT: No: Headaches, Vertigo, Lightheadedness Cardiovascular: No: Irregular Rhythm, Chest Pain or Discomfort, Palpitations, Tachycardia, Syncope, Varicosities, Edema, Cyanosis Respiratory: No: Cough, Short of Breath, Other Gastrointestinal: No: Nausea, Vomiting, Diarrhea Genitourinary: No: Decreased Urinary Output, Oliguria Musculoskeletal: No: Limited ROM, Weakness, Cramping, Edema, Pain Skin: No Rash, No Itching, No Dryness, No Lumps, No Change in Pigmentation, No Change in Nails, No Alopecia, No Lesions Neurologic: No: Weakness, Dizziness, Syncope, Focal Abnormalities, Coordination Problem, Headache, Slurred Speech, Seizures Psychiatric: No: Depression, Suicidal Ideations, Homicidal Ideation Endocrine: No: Heat Intolerance, Cold Intolerance, Polydipsia, Polyuria, Other Physical Exam Physical Exam Narrative GENERAL: Well-nourished, obese patient. SKIN: Warm and dry. HEAD: Normocephalic and atraumatic. EYES: No scleral icterus. No injection or drainage. ENT: No nasal drainage noted. Mucous membranes pink. Airway patent. NECK: Supple, trachea midline. No JVD. CARDIOVASCULAR: Regular rate and rhythm without murmurs, gallops, or rubs. RESPIRATORY: Breath sounds equal bilaterally. No accessory muscle use. BREASTS: Bilateral exam showed no masses , no retractions, no nipple discharge. ABDOMEN/GI: Abdomen soft, non-tender, bowel sounds present, no rebound, no guarding Gravid to [28-] weeks size Fundal Height: [-28] GENITOURINARY: External Genitalia: intact and normal in appearance Presentation: [-] Membranes: [intact ] Uterine Contractions: [none-] FHT's: Category: [-1] Baseline: [133-] Reactive: [-R] Variability: [mod-] Decels: [none-] EXTREMITIES: No cyanosis or edema. BACK: Nontender without obvious deformity. No CVA tenderness. NEUROLOGICAL: Awake and alert. Motor and sensory grossly within normal limits. Five out of 5 muscle strength in all muscle groups. Normal speech. Data Data Data Orders Orders Urinalysis - C+S If Indicated (03/27/17 13:10) Cbc No Diff, Includes Plts (03/27/17 13:10) Comprehensive Metabolic Panel (03/27/17 13:10) Uric Acid (03/27/17 13:10) Labs 24hr urine protein-- 6261 mg Laboratory Tests Test 03/27/17 13:00 White Blood Count 13.9 Red Blood Count 3.92 Hemoglobin 12.5 Hematocrit 35.8 Mean Corpuscular Volume 91.2 Mean Corpuscular Hemoglobin 31.8 Mean Corpuscular Hemoglobin Concent 34.9 Red Cell Distribution Width 15.1 Platelet Count 330 Mean Platelet Volume 8.4 MDM MDM Interpretation(s) Patient is 31-year-old white female at 28 weeks chronic hypertension and now superimposed preeclampsia with a large amount of proteinuria increase she's now spilling 6000 mg in 24 hours where the past she's been spilling [address] Wang called about the patient wants her admitted the hospital at this time Plan Plan to admit the patient hospital, IM steroids, and patient bedrest observation care directed by her OB provider Dr. Wang Diagnosis Diagnosis: Primary Impression: Pre-eclampsia superimposed on chronic hypertension, antepartum Additional Impression: 28 weeks gestation of Aris Zimmer II, MD Mar 27, 2017 14:10 Aris Zimmer II, MD Mar 27, 2017 19:07
[2017-03-27] MEDS ORDERED: ZOLPIDEM TARTRATE 5 MG TAB PO PRN (21:00)
[2017-03-27] MEDS: SODIUM CHLORIDE 0.9% FLUSH 10 ML FLUSH IV FLUSH SCH (21:00)
[2017-03-28] VITALS (262 sets, daily range): BP systolic 122–166; BP diastolic 54–85; PULSE 48–111; RESP 20–28; TEMP 97.6–98.4; O2SAT 97–100
[2017-03-28] MEDS: LABETALOL HCL 200 MG TAB PO SCH ×3 (00:10→16:20)
[2017-03-28] MEDS: LACTATED RINGER'S 1000 ML INJ 1,000 ML IV SCH ×4 (03:30→19:40)
[2017-03-28] MEDS: MULTIVIT/MIN/PREN/FOL AC/IRON PRENATAL TAB PO SCH (08:28)
[2017-03-28] MEDS: SODIUM CHLORIDE 0.9% FLUSH 10 ML FLUSH IV FLUSH SCH ×2 (08:28→21:00)
[2017-03-28] MEDS: MAGNESIUM SULFATE 40 GM PREMIX 1,000 ML IV SCH ×2 (08:30→16:41)
--- NOTE | 2017-03-28 08:40 | PD.OB.ANTE ---
Subjective Diagnosis: (1) Pre-eclampsia superimposed on chronic hypertension, antepartum Diagnosis: Principal (2) 28 weeks gestation of Diagnosis: Principal (3) History of 2 sections Diagnosis: Secondary Interval History Feeling "great." No headache, no nausea, no RUQ pain, no edema. Pain 0/10. Feeling movement. Antepartum ROS: Reports: movement normal, Denies: New complaints, Loss of fluid, Vaginal bleeding, Contractions, Other Objective Vital Signs Vital Signs Date Time Temp Pulse Resp B/P (MAP) Pulse Ox O2 Delivery O2 Flow Rate FiO2 03/28/17 07:54 20 03/28/17 07:50 90 03/28/17 07:49 90 148/68 (94) 03/28/17 07:45 98 03/28/17 07:40 89 03/28/17 07:35 93 164/62 (96) 03/28/17 07:35 93 03/28/17 07:33 97.9 03/28/17 07:30 92 03/28/17 07:25 96 03/28/17 07:20 103 03/28/17 07:15 91 03/28/17 07:10 91 03/28/17 07:05 94 03/28/17 07:01 91 152/85 (107) 03/28/17 07:00 92 03/28/17 06:01 90 144/69 (94) 03/28/17 06:00 97 03/28/17 05:30 95 03/28/17 05:25 94 03/28/17 05:20 90 03/28/17 05:15 89 03/28/17 05:10 88 03/28/17 05:05 90 03/28/17 05:01 88 143/58 (86) 03/28/17 05:00 20 03/28/17 05:00 86 03/28/17 04:55 86 03/28/17 04:50 89 03/28/17 04:45 90 03/28/17 04:40 89 03/28/17 04:35 88 03/28/17 04:30 93 03/28/17 04:25 86 03/28/17 04:20 87 03/28/17 04:15 86 03/28/17 04:10 86 03/28/17 04:05 89 1/18/18 04:01 89 132/62 (85) 03/28/17 04:00 93 18 03:55 86 18 03:50 85 18 03:45 94 18 03:40 88 18 03:35 89 18 03:30 86 18 03:25 87 18 03:20 88 18 03:15 90 18 03:10 89 18 03:05 91 18 03:02 87 138/62 (87) 03/28/17 03:00 87 18 02:55 93 03/28/17 02:50 87 18 02:45 87 18 02:40 89 18 02:35 87 18 02:25 89 18 02:20 87 18 02:15 86 03/28/17 02:10 87 18 02:05 85 03/28/17 02:01 89 157/71 (99) 03/28/17 02:00 20 18 02:00 85 18 01:55 86 18 01:50 89 18 01:45 87 18 01:40 88 18 01:35 93 18 01:30 90 18 01:25 90 18 01:20 90 18 01:15 87 18 01:10 91 18 01:05 90 18 01:01 89 166/85 (112) 18 01:00 91 1818 00:15 87 18 00:10 96 1818 00:05 111 1818 00:01 100 151/55 (87) 18 00:00 98.4 89 20 17/18 23:05 110 03/27/18 23:01 98 147/66 (93) 18 23:00 115 03/27/18 22:05 96 03/27/18 22:01 99 144/76 (98) 1/17/18 22:00 97 17/18 21:55 98 17/18 21:45 94 17/18 21:40 95 17/18 21:35 90 17/18 21:30 88 17/18 21:25 93 17/18 21:20 95 17/18 21:15 95 17/18 21:10 95 17/18 21:01 94 150/60 (90) 18 21:00 97 17/18 20:51 92 158/91 (113) 18 20:50 95 17/18 20:45 92 17/18 20:40 92 17/18 20:35 158 17/18 20:30 92 17/18 20:25 93 17/18 20:20 93 17/18 20:15 91 03/27/18 20:10 93 17/18 20:05 93 18 20:03 92 155/81 (105) 18 20:02 95 17/18 19:35 98 17/18 19:30 98.7 98 20 17/18 19:25 86 17/18 19:24 88 155/73 (100) 03/27/18 19:20 86 17/18 19:16 158/74 (102) 18 19:16 87 17/18 19:15 87 17/18 19:10 89 03/27/18 19:10 87 17/18 19:06 156/73 (100) 17/18 19:06 86 17/18 19:05 88 17/18 19:05 90 17/18 19:01 90 17/18 19:01 170/62 (98) 03/27/18 19:00 85 17/18 19:00 88 17/18 18:56 89 153/83 (106) 17/18 18:55 90 17/18 18:55 91 17/18 18:52 87 161/71 (101) 18 18:50 89 17/18 18:50 88 17/18 18:46 92 163/87 (112) 17/18 18:45 88 17/18 18:45 89 17/18 18:41 88 159/96 (117) 17/18 18:40 90 20 17/18 18:40 88 17/18 18:35 92 159/75 (103) 17/18 18:35 91 17/18 18:35 86 17/18 18:30 88 17/18 18:30 88 17/18 18:25 84 17/18 18:25 85 17/18 18:20 91 17/18 18:20 84 17/18 18:15 88 1718 18:15 85 17/18 18:10 85 03/27/18 18:10 89 17/18 18:05 88 03/27/18 18:05 84 17/18 18:00 89 18 18:00 85 18 17:52 20 03/27/18 17:50 86 17/18 17:48 92 154/83 (106) 18 17:45 84 17/18 17:40 87 17/18 17:35 83 17/18 17:30 82 17/18 17:25 91 17/18 17:20 87 17/18 17:15 86 17/18 16:45 18 17/18 16:40 88 17/18 16:35 87 17/18 16:30 185 17/18 15:40 18 17/18 15:35 18 17/18 14:40 83 17/18 14:40 84 164/99 (120) 17/18 14:35 81 17/18 14:20 80 17/18 14:16 86 185/59 (101) 03/27/18 14:15 90 17/18 14:10 86 17/18 14:05 84 17/18 14:01 81 167/85 (112) 1718 14:00 83 17/18 13:56 86 163/93 (116) 1718 13:50 47 03/27/17 13:45 87 Lab & Micro Results Test 03/27/17 13:00 White Blood Count 13.9 TH/MM3 Red Blood Count 3.92 MIL/MM3 Hemoglobin 12.5 GM/DL Hematocrit 35.8 % Mean Corpuscular Volume 91.2 FL Mean Corpuscular Hemoglobin 31.8 PG Mean Corpuscular Hemoglobin Concent 34.9 % Red Cell Distribution Width 15.1 % Platelet Count 330 TH/MM3 Mean Platelet Volume 8.4 FL Urine Color DARK-YELLOW Urine Turbidity HAZY Urine pH 7.0 Urine Specific [place] 1.022 Urine Protein 300 mg/dL Urine Glucose (UA) NEG mg/dL Urine Ketones NEG mg/dL Urine Occult Blood NEG Urine Nitrite NEG Urine Bilirubin NEG Urine Urobilinogen LESS THAN 2.0 MG/DL Urine Leukocyte Esterase LARGE Urine RBC 22 /hpf Urine WBC 10 /hpf Urine Squamous Epithelial Cells 13 /hpf Urine Bacteria MOD /hpf Urine Mucus FEW /lpf Microscopic Urinalysis Comment CULTURE INDICATED Blood Urea Nitrogen 16 MG/DL Creatinine 0.68 MG/DL Random Glucose 93 MG/DL Total Protein 6.6 GM/DL Albumin 2.4 GM/DL Calcium Level 9.6 MG/DL Uric Acid 6.2 MG/DL Alkaline Phosphatase 144 U/L Aspartate Amino Transf (AST/SGOT) 28 U/L Alanine Aminotransferase (ALT/SGPT) 25 U/L Total Bilirubin 0.1 MG/DL Sodium Level 138 MEQ/L Potassium Level 4.8 MEQ/L Chloride Level 108 MEQ/L Carbon Dioxide Level 20.0 MEQ/L Anion Gap 10 MEQ/L Estimat Glomerular Filtration Rate 100 ML/MIN Date/Time Source Procedure Growth Status 03/27/17 13:00 Urine Clean Catch Urine Culture Pending Received Physical Exam GENERAL: Well-nourished, well-developed patient. Obese. CARDIOVASCULAR: Regular rate and rhythm without murmurs, gallops, or rubs. RESPIRATORY: Breath sounds equal bilaterally. No accessory muscle use. ABDOMEN/GI: Abdomen soft, non-tender. Fundus: obesity limits measurement GENITOURINARY: External Genitalia: deferred FHT's: 130s EXTREMITIES: No cyanosis or edema, non-tender, without signs of DVT. 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 Wang's as outpatient HD#2 on 03/28/17 1) CHTN with DAYSI: repeat 24h urine ordered, due around 1400 today; due to prematurity betamethasone ordered, 1/2 doses given; will plan weekly testing with OB Dx and dopplers, daily NST, on magnesium sulfate for neuroprotection now , BPs mod range an no severe symptoms at this time; continue to monitor closely , expect pt to remain inpatient until delivery 2) abnl 1h GTT: due to current betamethasone administration will wait to do 3h GTT until next week; carb consistent diet for now 3) Rh negative: anti D+ 4) h/o CD x 2: would be for repeat with tubal if delivery indicated 5) status: female, borderline dopplers yesterday with OB Dx, for twice weekly testing, FHTs 130s currently Angeles Lee MD Mar 28, 2017 08:40
[2017-03-28] MEDS: BETAMETHASONE SOD PHOS/ACETATE SUSP 30 MG/5 ML VIAL IM SCH (14:02)
[2017-03-29] VITALS (18 sets, daily range): BP systolic 142–167; BP diastolic 66–93; PULSE 77–93; RESP 18–20; TEMP 97.7–98.8
[2017-03-29] MEDS: LABETALOL HCL 200 MG TAB PO SCH ×4 (00:03→23:37)
[2017-03-29] MEDS: LACTATED RINGER'S 1000 ML INJ 1,000 ML IV SCH (06:10)
[2017-03-29 06:22] LABS: ALBUMIN 2.3 GM/DL (3.4-5.0); ALKALINE PHOSPHATASE 122 U/L (45-117); ALT (GPT) 23 U/L (10-53); AST (GOT) 19 U/L (15-37); BICARBONATE 19.7 MEQ/L (21.0-32.0); BLOOD UREA NITROGEN 24 MG/DL (7-18); CALCIUM 7.8 MG/DL (8.5-10.1); CHLORIDE 108 MEQ/L (98-107); CREATININE 0.75 MG/DL (0.50-1.00); GLOMERULAR FILTRATION RATE 89 ML/MIN (>89); GLUCOSE,RANDOM 130 MG/DL (74-106); SODIUM (NA) 138 MEQ/L (136-145); TOTAL BILIRUBIN ADULT 0.1 MG/DL (0.2-1.0); TOTAL PROTEIN 6.2 GM/DL (6.4-8.2)
--- NOTE | 2017-03-29 07:03 | PD.OB.ANTE ---
Subjective Diagnosis: (1) Pre-eclampsia superimposed on chronic hypertension, antepartum (2) 28 weeks gestation of (3) History of 2 sections Interval History Patient doing well, endorses movement, denies headache, blurry vision, epigastric pain Antepartum ROS: Reports: New complaints Objective Vital Signs Vital Signs Date Time Temp Pulse Resp B/P (MAP) Pulse Ox O2 Delivery O2 Flow Rate FiO2 03/29/17 06:09 18 03/29/17 06:00 20 03/29/17 05:36 89 154/70 (98) 03/29/17 01:00 20 03/29/17 00:32 93 146/69 (94) 03/28/17 23:25 83 97 03/28/17 23:20 85 97 03/28/17 23:14 85 22 161/85 (110) 03/28/17 23:13 97.7 03/28/17 22:45 86 03/28/17 22:40 96 03/28/17 22:35 95 03/28/17 22:30 98 03/28/17 22:25 89 03/28/17 22:20 88 03/28/17 22:15 88 03/28/17 22:10 89 03/28/17 22:05 89 03/28/17 22:00 87 03/28/17 21:55 86 03/28/17 21:50 89 03/28/17 21:45 89 20 03/28/17 21:40 48 03/28/17 21:35 82 03/28/17 21:30 92 03/28/17 21:30 83 149/76 (100) 03/28/17 21:25 48 03/28/17 20:35 89 03/28/17 20:30 97 03/28/17 20:25 86 03/28/17 20:20 87 03/28/17 20:15 84 03/28/17 20:10 86 03/28/17 20:05 87 03/28/17 20:03 20 03/28/17 20:00 87 03/28/17 20:00 85 152/82 (105) 03/28/17 19:59 97.6 03/28/17 19:55 89 03/28/17 19:50 87 03/28/17 19:45 88 03/28/17 19:40 87 1/18/18 19:35 87 18/18 19:30 86 18/18 19:25 92 18/18 19:20 86 18/18 19:15 86 18/18 19:10 88 18/18 19:05 89 18/18 19:00 87 03/28/18 18:55 86 18/18 18:50 89 18 18:45 88 18 18:40 90 18 18:35 92 18 18:30 86 1818 18:25 86 18 18:20 96 18 18:15 89 18 18:10 88 18 18:05 94 18 18:01 86 156/73 (100) 18 18:00 96 18 18:00 20 18 17:15 86 18 17:10 85 18 17:05 95 18 17:01 87 150/79 (102) 18 17:00 20 99 18/18 17:00 85 18/18 16:55 84 03/28/18 16:50 86 03/28/18 16:45 84 18/18 16:40 87 18/18 16:35 85 18/18 16:30 85 18/18 16:25 88 03/28/18 16:20 86 03/28/18 16:15 87 03/28/18 16:10 82 18/18 16:05 84 18/18 16:01 83 147/80 (102) 03/28/18 16:00 83 20 18/18 15:55 91 18/18 15:50 88 18/18 15:45 85 18/18 15:40 85 18/18 15:35 84 18/18 15:30 84 /18/18 15:25 87 18/18 15:20 89 18/18 15:15 87 18/18 15:10 85 18/18 15:05 86 03/28/18 15:01 85 146/77 (100) 1/18/18 15:00 82 1/18/18 15:00 20 /18/18 14:55 83 /18/18 14:50 84 /18/18 14:45 84 /18/18 14:40 90 /18/18 14:35 87 /18/18 14:30 87 /18/18 14:25 85 /18/18 14:20 84 18/18 14:15 84 18/18 14:10 89 18/18 14:05 90 100 /18/18 14:05 91 18/18 14:02 86 138/69 (92) 03/28/18 14:00 83 20 99 /18/18 13:55 83 18/18 13:50 84 /18/18 13:45 85 /18/18 13:40 84 /18/18 13:35 84 /18/18 13:30 86 18/18 13:25 88 18/18 13:20 86 18/18 13:15 85 18/18 13:10 86 /18/18 13:05 86 /18/18 13:01 85 130/58 (82) 03/28/18 13:00 86 18/18 13:00 20 18/18 13:00 98 /18/18 12:55 90 /18/18 12:50 94 /18/18 12:45 91 /18/18 12:40 97 18/18 12:35 84 18/18 12:30 87 18/18 12:25 86 /18/18 12:20 86 /18/18 12:15 87 /18/18 12:10 86 /18/18 12:05 87 18/18 12:02 89 122/59 (80) 18/18 12:00 87 18/18 12:00 28 98 /18/18 11:55 88 /18/18 11:50 89 /18/18 11:45 89 /18/18 11:40 89 /18/18 11:35 87 /18/18 11:30 89 /18/18 11:25 92 /18/18 11:20 93 1/18/18 11:15 88 1/18/18 11:10 89 1/18/18 11:06 89 126/59 (81) /18/18 11:05 92 1/18/18 11:00 88 20 1/18/18 11:00 98 1/18/18 10:55 88 /18/18 10:50 88 /18/18 10:45 89 1/18/18 10:40 91 1/18/18 10:35 90 1/18/18 10:30 91 1/18/18 10:25 89 1/18/18 10:20 91 /18/18 10:15 90 /18/18 10:10 88 /18/18 10:05 91 /18/18 10:01 89 124/70 (88) 18/18 10:00 93 /18/18 10:00 20 /18/18 09:55 94 /18/18 09:50 92 /18/18 09:45 94 /18/18 09:40 95 /18/18 09:35 95 1/18/18 09:30 91 /18/18 09:25 101 /18/18 09:20 108 /18/18 09:15 105 /18/18 09:10 101 /18/18 09:05 108 /18/18 09:01 96 128/55 (79) 18/18 09:00 101 /18/18 08:58 20 /18/18 08:55 103 /18/18 08:50 105 /18/18 08:47 100 /18/18 08:45 105 1/18/18 08:42 101 134/54 (80) 18/18 08:40 104 1/18/18 08:35 106 /18/18 08:30 100 /18/18 08:25 108 /18/18 08:20 98 1/18/18 08:15 96 1/18/18 08:10 92 1/18/18 08:05 97 /18/18 08:00 92 /18/18 07:55 95 /18/18 07:54 20 /18/18 07:50 90 /18/18 07:49 90 148/68 (94) 1/18/18 07:45 98 03/28/17 07:40 89 03/28/17 07:35 93 164/62 (96) 03/28/17 07:35 93 03/28/17 07:33 97.9 03/28/17 07:30 92 03/28/17 07:25 96 03/28/17 07:20 103 03/28/17 07:15 91 03/28/17 07:10 91 03/28/17 07:05 94 03/28/17 07:01 91 152/85 (107) 03/28/17 07:00 92 Lab & Micro Results Test 03/28/17 13:00 03/29/17 04:37 Urine Total Volume 24 Hours 2000 ML Urine Total Protein 24 Hour 5424 MG/24HR Blood Urea Nitrogen 24 MG/DL Creatinine 0.75 MG/DL Random Glucose 130 MG/DL Total Protein 6.2 GM/DL Albumin 2.3 GM/DL Calcium Level 7.8 MG/DL Uric Acid 7.1 MG/DL Alkaline Phosphatase 122 U/L Aspartate Amino Transf (AST/SGOT) 19 U/L Alanine Aminotransferase (ALT/SGPT) 23 U/L Total Bilirubin 0.1 MG/DL Sodium Level 138 MEQ/L Potassium Level 4.2 MEQ/L Chloride Level 108 MEQ/L Carbon Dioxide Level 19.7 MEQ/L Anion Gap 10 MEQ/L Estimat Glomerular Filtration Rate 89 ML/MIN Date/Time Source Procedure Growth Status 03/27/17 13:00 Urine Clean Catch Urine Culture - Final 50-100,000 CFU/ML MIXED GRAM POSITIVE... Complete Physical Exam GENERAL: Well-nourished, well-developed patient. CARDIOVASCULAR: Regular rate and rhythm without murmurs, gallops, or rubs. RESPIRATORY: Breath sounds equal bilaterally. No accessory muscle use. ABDOMEN/GI: Abdomen soft, non-tender. Fundus: [-] GENITOURINARY: External Genitalia: Deferred: FHT's: 130s moderate variability, no decels, positive acel. EXTREMITIES: No cyanosis, 1+ edema, non-tender, without signs of DVT. SCDs not on. DTRs 1+, no clonus Assessment and Plan Problem List: (1) Pre-eclampsia superimposed on chronic hypertension, antepartum ICD Codes: O11.9 - Pre-existing hypertension with pre-eclampsia, unspecified trimester; O10.019 - Pre-existing essential hypertension complicating , unspecified trimester Status: Acute (2) 28 weeks gestation of ICD Codes: Z3A.28 - 28 weeks gestation of Status: Acute (3) History of 2 sections ICD Codes: Z87.59 - Personal history of other complications of , childbirth and the puerperium Assessment and Plan Patient is 31-year-old white female at 28w3d (ARIELLA 06/18/17) admitted for SIPREC HD#3 on 03/29/17 1. IUP: - EFW (03/13/17) = 865g (36%) AC 49%, plac post. FRANCISCO on 03/27 = 16cm - NST reactive overnight however UA dopplers showed IAEDF but normal S:D ratio ( 03/27), unsure of clinical significance, w/ normal NST and normal EFW will do daily NST. - s/p BMZ (03/28) - female fetus 2. CHTN with DAYSI: pt asymptomatic, BP range 122-161/59-85 x 24hrs. Severe was mild range on repeat. - Continue labetalol 400mg TID. - s/p mag x 24hr (off 03/28), will repeat if develops severe features - BL 24hr urine 631 (02/22) repeat as an outpt 6.26g (03/25), repeated due to concern for lab error and in patient was 5.42g (03/28). - Dispo: inpt until delivery, goal ~34w, has BPP today, while inpt will have 2x / wk BPP / UA dop / MCAs, daily NST, weekly HELLP labs if stable. 3. Nephrotic range proteinuria: begin ppx lovenox. 4. Failed 1hr (150): monitor FSBG next few days fasting and 1hr PP, if normal can d/c and perform 3hr later. 5. 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 - FOB is O + and Atg to "c" 6. h/o CD x 2: for repeat 7. Desires sterilization: will perform at time of delivery. Pt may have medicaid will have her sign medicaid BTL papers today. 8. h/o PTD x2: 34w (01') and 36w (02') for PREC. Galo Guillaume MD Mar 29, 2017 07:03
[2017-03-29 07:10] LABS: AUTOMATED NEUTROPHIL # 12.9 TH/MM3 (1.8-7.7); BASOPHIL # 0.1 TH/MM3 (0-0.2); BASOPHIL % 0.6 % (0.0-2.0); EOSINOPHIL % 0.1 % (0.0-4.0); HEMATOCRIT 36.1 % (35.0-46.0); LYMPH % 9.9 % (9.0-44.0); LYMPHOCYTE # 1.5 TH/MM3 (1.0-4.8); MEAN CELL VOLUME 92.4 FL (80.0-100.0); MEAN CORPUSCULAR HEMOGLOBIN 30.7 PG (27.0-34.0); MEAN CORPUSCULAR HGB CONC 33.2 % (32.0-36.0); MEAN PLATELET VOLUME 9.3 FL (7.0-11.0); MONO % 5.8 % (0.0-8.0); MONOCYTE # 0.9 TH/MM3 (0-0.9); NEUT % 83.6 % (16.0-70.0); PLATELET COUNT 268 TH/MM3 (150-450); RED BLOOD COUNT 3.91 MIL/MM3 (4.00-5.30); RED CELL DISTRIBUTION WIDTH 15.4 % (11.6-17.2); WHITE BLOOD COUNT 15.4 TH/MM3 (4.0-11.0)
[2017-03-29] MEDS ORDERED: GLUCAGON 1 MG/ML VIAL OTHER PRN (07:30)
[2017-03-29] MEDS ORDERED: DEXTROSE 50% IN WATER 50 ML VIAL(D50) IV PUSH PRN (07:30)
[2017-03-29 07:46] LABS: BANDS 1 % (0-6); LYMPHOCYTES 6 % (9-44); MONOCYTES 3 % (0-8); MYELOCYTES 3 % (0-0); POLYS (SEG NEUTROPHILS) 87 % (16-70)
[2017-03-29] MEDS: INSULIN NovoLIN REGULAR SUPPLEMENTAL SCALE SQ SCH ×4 (08:00→21:00)
[2017-03-29] MEDS: MULTIVIT/MIN/PREN/FOL AC/IRON PRENATAL TAB PO SCH (08:49)
[2017-03-29] MEDS: ENOXAPARIN SODIUM 40 MG/0.4 ML SYRINGE SQ SCH (09:00)
[2017-03-29] MEDS: SODIUM CHLORIDE 0.9% FLUSH 10 ML FLUSH IV FLUSH SCH (10:12)
[2017-03-29] MEDS ORDERED: NIFEdipine 10 MG CAP ONE (18:27)
[2017-03-29] MEDS ORDERED: NIFEdipine 10 MG CAP PO PRN (18:30)
[2017-03-29] MEDS ORDERED: LABETALOL HCL 100 MG/20 ML VIAL ONE (18:32)
[2017-03-29] MEDS ORDERED: LABETALOL HCL 100 MG/20 ML VIAL IV ONE (19:15)
--- NOTE | 2017-03-29 19:17 | HHI.PR ---
Addendum to Inpatient Note Addendum Reason: Additional Documentation Additional Information Consult: Maternal Hx: 31 y/o female at 28 2/7 weeks gestation with diagnosis of Chronic hypertension with superimposed pre eclampsia. Mother admitted to [facility] on 03/27/17 secondary to hypertension and proteinuria. Most recent Ultrasound on 03/29/17 confirms intrauterine . EDC of 06/18/17. Estimated weight is >1200 grams. Maternal risk factors/complications: chronic hypertension, chronic kidney disease, proteinuria, obesity, previous c/section x 2, asthma. Maternal Labs: Blood type A neg, Rubella immune, RPR non-reactive, GC neg, Chlamydia neg, Hepatitis B neg, HIV neg, GBS unknown, Other 1 hour glucola 150 (failed). Maternal Medications: Aspirin 80 mg/day, Labatelol, PNV Betamethasone (03/27/17 & 03/28/17). Magnesium Sulfate Discussion: Nurse Practitioner met with mother regarding threatened delivery at 28 weeks gestation secondary to chronic hypertension with super imposed pre eclampsia. This consultation included generalized care of the baby in the NICU, common problems, complications and survival and/or disability potential if delivered at this time. The Nurse Practitioner provided information regarding the [employer] national statistics on overall survival at 28 2/7 weeks and >1000 grams. Mother was provided with information regarding what to expect at the delivery. Discussion focused on expectations with delivery of an infant under these circumstances including delivery room atmosphere, resuscitation and stabilization. Also included in this review is the admission process to the NICU, including possible procedures such as intubation and placement of umbilical catheter(s). Additionally, there was a discussion of the disease processes that may affect an infant of this gestation, including but not limited to respiratory distress, infection and nutritional concerns. Discussion detailed various forms of respiratory support for immature lungs including use of surfactant and placement of umbilical catheters and/or PICC lines. Discussion focused on CPAP and/or ventilator support as needed for an of this gestation. There was a review of nutritional support challenges including IV and gavage feeding. There was discussion regarding of possible feeding intolerances and intestinal complications. Breast feeding and early breast milk pumping was strongly encouraged. Explained that is at risk for hyperbilirubinemia and may require treatment with phototherapy. As the baby matures, it was explained that eye exams would be obtained to evaluate the immature eye for retinopathy of prematurity (ROP). There was a review of the potential for intraventricular hemorrhage (IVH), sonogram testing and subsequent risk of neurodevelopmental delay. It was explained that there is an increased potential for neurodevelopmental delay secondary to prematurity itself, even if the does not have IVH or ROP. Support systems in place at [facility] were reviewed. The Fruit Picker, Dr. Slaughter, separately, met with mother to discuss delivery and potential issues. Expected discharge would likely occur closer to the due date if the infant has an uncomplicated hospitalization. Greater than 50% of the consultation time was spent with the patient. Arlene Carrasco Mar 29, 2017 19:17
[2017-03-30] VITALS (62 sets, daily range): BP systolic 143–187; BP diastolic 72–100; PULSE 66–106; RESP 18–21; TEMP 97.7–98.3; O2SAT 99–100
[2017-03-30] MEDS: LABETALOL HCL 200 MG TAB PO SCH ×3 (07:05→19:00)
[2017-03-30] MEDS: INSULIN NovoLIN REGULAR SUPPLEMENTAL SCALE SQ SCH ×2 (07:52→12:00)
--- NOTE | 2017-03-30 08:01 | PD.OB.ANTE ---
Subjective Diagnosis: (1) Pre-eclampsia superimposed on chronic hypertension, antepartum (2) 28 weeks gestation of (3) History of 2 sections Interval History doing well, no complaints, no headache, blurry vision, epigastric pain, Objective Vital Signs Vital Signs Date Time Temp Pulse Resp B/P (MAP) Pulse Ox O2 Delivery O2 Flow Rate FiO2 03/30/17 06:52 18 03/30/17 06:51 97.7 03/30/17 06:51 67 166/100 (122) 03/29/17 23:39 20 03/29/17 23:36 83 142/66 (91) 03/29/17 22:55 98.0 18 03/29/17 22:54 81 162/80 (107) 03/29/17 19:38 20 03/29/17 19:38 98.0 03/29/17 19:31 84 157/88 (111) 03/29/17 18:24 83 163/87 (112) 03/29/17 18:22 90 167/93 (117) 03/29/17 16:56 161/83 (109) 03/29/17 16:00 78 03/29/17 16:00 97.7 03/29/17 16:00 162/81 (108) 03/29/17 12:00 98.8 03/29/17 12:00 77 142/72 (95) 03/29/17 10:05 85 03/29/17 08:00 97.8 20 Lab & Micro Results Date/Time Source Procedure Growth Status 03/27/17 13:00 Urine Clean Catch Urine Culture - Final 50-100,000 CFU/ML MIXED GRAM POSITIVE... Complete Physical Exam GENERAL: Well-nourished, well-developed patient. CARDIOVASCULAR: Regular rate and rhythm without murmurs, gallops, or rubs. RESPIRATORY: Breath sounds equal bilaterally. No accessory muscle use. ABDOMEN/GI: Abdomen soft, non-tender. Fundus: [-] GENITOURINARY: External Genitalia: deferred FHT's: 462809 moderate variability, positive acels, 1 variable decel during 9pm NST yesterday EXTREMITIES: No cyanosis or edema, non-tender, without signs of DVT. Assessment and Plan Problem List: (1) Pre-eclampsia superimposed on chronic hypertension, antepartum ICD Codes: O11.9 - Pre-existing hypertension with pre-eclampsia, unspecified trimester; O10.019 - Pre-existing essential hypertension complicating , unspecified trimester Status: Acute (2) 28 weeks gestation of ICD Codes: Z3A.28 - 28 weeks gestation of Status: Acute (3) History of 2 sections ICD Codes: Z87.59 - Personal history of other complications of , childbirth and the puerperium Assessment and Plan Patient is 31-year-old CF at 28w4d (ARIELLA 06/18/17) admitted for SIPREC HD#4 on 03/30/17 1. IUP: - EFW (03/13/17) = 865g (36%) AC 49%, plac post. FRANCISCO on 03/27 = 16cm - NST reactive overnight. - UA dopplers showed IAEDF but normal S:D ratio (03/27), unsure of clinical significance. No report from BPP yesterday but was told by nursing "was normal" w/ normal NST and normal EFW will do daily NST. - s/p BMZ (03/28) and NICU consult. - female fetus 2. CHTN with DAYSI: pt asymptomatic, BP range x24hrs 142-166/66-100, at bedise was 171/99 during our encounter. - Treat with 20 IV labetalol now, put on NST, repeat BP in 20 min, increase scheduled labetalol from 400mg TID to 600 TID, if BP needs repeat treatment will collect HELLP labs and begin Mag. - s/p mag x 24hr (off 03/28), will repeat if develops severe features - BL 24hr urine 631 (02/22) repeat as an outpt 6.26g (03/25), repeated due to concern for lab error and in patient was 5.42g (03/28). - Dispo: inpt until delivery, goal ~34w, while inpt will have 2x / wk BPP / UA dop / MCAs, daily NST, repeat HELLP labs tomorrow and will do weekly HELLP labs if stable. 3. Nephrotic range proteinuria: rec heparin 5000 BID although not techically ppx dose would likely provide some benefit and anestheisa feels more comfortable with this for regional anesthesia. 4. Failed 1hr (150): FSBG yesterday were just above 140s, can d/c today. Will perform 3hr later. 5. 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 - FOB is O + and Atg to "c" 6. h/o CD x 2: for repeat 7. Desires sterilization: will perform at time of delivery. Pt may have medicaid , signed papers on 03/29. 8. h/o PTD x2: 34w (01') and 36w (02') for PREC. Galo Guillaume MD Mar 30, 2017 08:01
[2017-03-30] MEDS ORDERED: LABETALOL HCL 200 MG TAB PO ONE (08:30)
[2017-03-30] MEDS ORDERED: LABETALOL HCL 100 MG/20 ML VIAL IV PUSH ONE (08:30)
[2017-03-30] MEDS: SODIUM CHLORIDE 0.9% FLUSH 10 ML FLUSH IV FLUSH SCH ×2 (08:32→21:00)
[2017-03-30] MEDS: ENOXAPARIN SODIUM 40 MG/0.4 ML SYRINGE SQ SCH (08:32)
[2017-03-30] MEDS: MULTIVIT/MIN/PREN/FOL AC/IRON PRENATAL TAB PO SCH (08:32)
[2017-03-30] MEDS ORDERED: PHENYLEPH/NS 1000 MCG/10 ML SYR IV ONE (12:00)
[2017-03-30] MEDS ORDERED: OXYTOCIN 10 UNIT/ML AMP IV ONE (12:00)
[2017-03-30] MEDS ORDERED: ONDANSETRON HCL 4 MG/2 ML VIAL IV ONE (12:00)
[2017-03-30] MEDS ORDERED: LACTATED RINGER'S 1000 ML INJ 1,000 ML IV ONE ×2 (12:00→15:00)
[2017-03-30] MEDS ORDERED: CALCIUM GLUCONATE 10% 1 GM/10 ML VIAL IV PUSH PRN (12:45)
[2017-03-30] MEDS ORDERED: LACTATED RINGER'S 1000 ML INJ 1,000 ML IV SCH ×2 (12:45→15:00)
[2017-03-30] MEDS ORDERED: LABETALOL HCL 100 MG/20 ML VIAL IV PUSH PRN ×3 (12:45)
[2017-03-30] MEDS ORDERED: MAGNESIUM SULFATE 40 GM PREMIX 1,000 ML ONE (12:59)
[2017-03-30] MEDS ORDERED: MAGNESIUM SULFATE 4 GM PREMIX 100 ML ONE (12:59)
[2017-03-30 13:20] LABS: AUTOMATED NEUTROPHIL # 12.3 TH/MM3 (1.8-7.7); BASOPHIL # 0.1 TH/MM3 (0-0.2); BASOPHIL % 0.8 % (0.0-2.0); EOSINOPHIL # 0.1 TH/MM3 (0-0.4); EOSINOPHIL % 0.4 % (0.0-4.0); HEMOGLOBIN 12.1 GM/DL (11.6-15.3); LYMPH % 17.5 % (9.0-44.0); LYMPHOCYTE # 3.1 TH/MM3 (1.0-4.8); MEAN CELL VOLUME 91.8 FL (80.0-100.0); MEAN CORPUSCULAR HEMOGLOBIN 30.9 PG (27.0-34.0); MEAN CORPUSCULAR HGB CONC 33.6 % (32.0-36.0); MEAN PLATELET VOLUME 8.3 FL (7.0-11.0); MONO % 11.3 % (0.0-8.0); PLATELET COUNT 352 TH/MM3 (150-450); RED BLOOD COUNT 3.92 MIL/MM3 (4.00-5.30); WHITE BLOOD COUNT 17.5 TH/MM3 (4.0-11.0)
[2017-03-30 13:44] LABS: ALBUMIN 2.5 GM/DL (3.4-5.0); ALKALINE PHOSPHATASE 124 U/L (45-117); ALT (GPT) 30 U/L (10-53); AST (GOT) 28 U/L (15-37); BICARBONATE 22.6 MEQ/L (21.0-32.0); BLOOD UREA NITROGEN 19 MG/DL (7-18); CALCIUM 9.1 MG/DL (8.5-10.1); CHLORIDE 108 MEQ/L (98-107); CREATININE 0.57 MG/DL (0.50-1.00); GLOMERULAR FILTRATION RATE 122 ML/MIN (>89); GLUCOSE,RANDOM 74 MG/DL (74-106); SODIUM (NA) 139 MEQ/L (136-145); TOTAL BILIRUBIN ADULT 0.1 MG/DL (0.2-1.0); TOTAL PROTEIN 6.4 GM/DL (6.4-8.2)
[2017-03-30] MEDS ORDERED: hydrALAZINE HCL 20 MG/ML VIAL ONE (13:57)
[2017-03-30 14:04] LABS: BANDS 2 % (0-6); LYMPHOCYTES 15 % (9-44); METAMYELOCYTES 1 % (0-1); MONOCYTES 7 % (0-8); MYELOCYTES 4 % (0-0); NEUTROPHIL # MANUAL DIFF 13.7 TH/MM3 (1.8-7.7); POLYS (SEG NEUTROPHILS) 71 % (16-70)
[2017-03-30] MEDS ORDERED: hydrALAZINE HCL 20 MG/ML VIAL IV PUSH ONE (14:15)
--- NOTE | 2017-03-30 14:35 | HHI.PR ---
SOCIAL SCIENCES CHAIR Note Note Have been in contact with nursing and have been managing patient remotely today has received 20 mg, 40 mg, 80 mg of IV labetalol and just now 10 mg of IV hydralazine, and BPs have remained severe, patient denies headache, blurred vision, epigastric pain, discussed with MFM over the phone of my plan of care to move towards delivery due to refractory blood pressures in the setting of superimposed preeclampsia, she was in agreement. Discussed with patient at bedside with her risk of stroke, and heart attack, and indication for delivery. HELLP labs today were normal, heart rate currently is 150s, moderate variability, however intermittent variables. Will proceed with the liver in the next 20-30 minutes via repeat and patient desires sterilization, consented that previous encounter. Pt already has received 4g Mag bolus, continue 2g/hr. Patient may need admission to ICU for acute blood pressure control if not managed well following delivery. Galo Guillaume MD Mar 30, 2017 14:35
[2017-03-30] MEDS ORDERED: MORPHINE SULFATE PF 5 MG/10 ML VIAL ONE (14:39)
[2017-03-30] MEDS ORDERED: ceFAZolin 2 GM PREMIX 50 ML IV SCH (15:30)
[2017-03-30] MEDS ORDERED: CITRIC ACID-SODIUM CITRATE LIQ 30 ML UDC PO SCH (16:00)
[2017-03-30] MEDS ORDERED: MAGNESIUM SULFATE 40 GM PREMIX 1,000 ML IV SCH (16:25)
[2017-03-30] MEDS ORDERED: ACETAMINOPHEN 1000 MG/100 ML 100 ML IV ONE ×2 (16:30→16:43)
[2017-03-30] MEDS ORDERED: SODIUM CHLORIDE 0.9% FLUSH 10 ML FLUSH IV FLUSH PRN (16:30)
[2017-03-30] MEDS ORDERED: OXYTOCIN 30 UNITS-500ML PREMIX 500 ML IV ONE (16:30)
[2017-03-30] MEDS ORDERED: SIMETHICONE 80 MG CHEWABLE TAB PO PRN (16:30)
[2017-03-30] MEDS ORDERED: ONDANSETRON HCL 4 MG/2 ML VIAL IV PUSH PRN (16:30)
--- NOTE | 2017-03-30 16:39 | PD.OB.DELI ---
Procedure Note Section Procedure Pre Op Diagnosis: (1) 28 weeks gestation of (2) Pre-eclampsia superimposed on chronic hypertension, antepartum Post Op Diagnosis: Performed by Galo Guillaume Procedure: Repeat Low Transverse Sec (and BTL) Indication for delivery: Maternal medical problems (SIPREC) Informed consent obtained: For anesthesia, For procedure Confirmed correct: Patient, Procedure, Site, Time-out taken Anesthesia: Spinal Medication prior to procedure: As documented in eMAR, Antacids, Antibiotics, IV Monitoring during procedure: Blood pressure monitoring Urinary catheter: Inserted using sterile technique, ml urine output (200) Sterile preparation: Duraprep, In usual fashion Position: Supine with wedge to left side Operative Features Skin Incision: Pfannenstiel Uterine Incision: Low transverse w/knife / blunt ext Membranes Ruptured: Artificially Delivery date: Mar 30, 2017 Delivery time: 15:29 Delivery of : Uneventful, Umbilical cord (3VC, core blood gases collected , however arterial insufficient sample to run) : Female, Single Weight: 1200g Status of infant: Viable Placenta delivered: Intact, Sent to pathology Medications: Antibiotics, Oxytocin, Other (magnesium) Estimated blood loss: 500-600 Procedure tolerated: Well Maternal Complications: Other (none) Maternal Condition: Stable Baby Complications: Other (premature) Procedure in detail See dictated operative report: Dictation number [id number] Galo Guillaume MD Mar 30, 2017 16:39
--- NOTE | 2017-03-30 16:41 | HHI.DCPOC ---
Discharge Care Plan Diagnosis: (1) 28 weeks gestation of (2) Pre-eclampsia superimposed on chronic hypertension, antepartum Your Health Problems Are: delivery Report Symptoms to Your Doctor -Temperature above 100.5 degrees -Redness, of incision or excessive or foul smelling drainage -Unusual pain or calf pain -Increased vaginal bleeding -Painful or difficulty urinating -Feelings of extreme sadness or anxiety after 2 weeks Goals to Promote Your Health * To prevent worsening of your condition and complications * To maintain your health at the optimal level Directions to Meet Your Goals Take your medications as prescribed Follow your dietary instruction Follow activity as directed Ensure plenty of rest for recovery Drink fluids for hydration Keep your appointments as scheduled Take your immunizations and boosters as scheduled If your symptoms worsen call your PCP, if no PCP go to Urgent Care Center or Emergency Room Smoking is Dangerous to Your Health. Avoid second hand smoke Call the 24-hour crisis hotline for domestic abuse at Galo Guillaume MD Mar 30, 2017 16:41
[2017-03-30] MEDS ORDERED: OXYTOCIN 30 UNITS-500ML PREMIX 500 ML ONE (16:43)
[2017-03-30] MEDS ORDERED: LABETALOL HCL 100 MG/20 ML VIAL ONE (16:49)
[2017-03-31] VITALS (29 sets, daily range): BP systolic 107–175; BP diastolic 52–90; PULSE 71–87; RESP 16–20; TEMP 97.7–98.4; O2SAT 99
[2017-03-31] MEDS: LACTATED RINGER'S 1000 ML INJ 1,000 ML IV SCH ×2 (01:02→07:19)
[2017-03-31] MEDS: LABETALOL HCL 200 MG TAB PO SCH ×3 (01:02→21:21)
[2017-03-31] MEDS ORDERED: OXYTOCIN 30 UNITS-500ML PREMIX 500 ML IV PRN (02:30)
[2017-03-31 05:28] LABS: ALBUMIN 2.1 GM/DL (3.4-5.0); ALT (GPT) 28 U/L (10-53); AST (GOT) 48 U/L (15-37); BICARBONATE 19.2 MEQ/L (21.0-32.0); BLOOD UREA NITROGEN 16 MG/DL (7-18); CALCIUM 7.8 MG/DL (8.5-10.1); CHLORIDE 105 MEQ/L (98-107); CREATININE 0.58 MG/DL (0.50-1.00); GLOMERULAR FILTRATION RATE 120 ML/MIN (>89); GLUCOSE,RANDOM 82 MG/DL (74-106); MAGNESIUM 5.2 MG/DL (1.5-2.5); SODIUM (NA) 134 MEQ/L (136-145)
[2017-03-31 05:30] LABS: ALKALINE PHOSPHATASE 111 U/L (45-117); TOTAL BILIRUBIN ADULT 0.3 MG/DL (0.2-1.0); TOTAL PROTEIN 5.6 GM/DL (6.4-8.2)
[2017-03-31] MEDS: ACETAMINOPHEN/HYDROcodone 325 MG/5 MG TAB PO PRN (07:38)
[2017-03-31 07:46] LABS: AUTOMATED NEUTROPHIL # 14.4 TH/MM3 (1.8-7.7); BASOPHIL # 0.1 TH/MM3 (0-0.2); BASOPHIL % 0.3 % (0.0-2.0); EOSINOPHIL # 0.1 TH/MM3 (0-0.4); EOSINOPHIL % 0.6 % (0.0-4.0); HEMATOCRIT 36.8 % (35.0-46.0); HEMOGLOBIN 12.3 GM/DL (11.6-15.3); LYMPH % 10.8 % (9.0-44.0); MEAN CORPUSCULAR HEMOGLOBIN 31.4 PG (27.0-34.0); MEAN CORPUSCULAR HGB CONC 33.4 % (32.0-36.0); MEAN PLATELET VOLUME 8.3 FL (7.0-11.0); MONOCYTE # 1.6 TH/MM3 (0-0.9); NEUT % 79.3 % (16.0-70.0); PLATELET COUNT 300 TH/MM3 (150-450); RED BLOOD COUNT 3.92 MIL/MM3 (4.00-5.30); RED CELL DISTRIBUTION WIDTH 15.2 % (11.6-17.2); WHITE BLOOD COUNT 18.2 TH/MM3 (4.0-11.0)
[2017-03-31] MEDS ORDERED: LABETALOL HCL 100 MG/20 ML VIAL ONE (08:14)
[2017-03-31] MEDS ORDERED: LABETALOL HCL 100 MG/20 ML VIAL IV PUSH ONE (08:30)
[2017-03-31] MEDS ORDERED: HYDR-3516 PO (08:53)
[2017-03-31] MEDS ORDERED: ENAL5TAB PO (08:54)
[2017-03-31] MEDS ORDERED: ENALAPRIL MALEATE 5 MG TAB PO SCH (09:00)
[2017-03-31] MEDS: SODIUM CHLORIDE 0.9% FLUSH 10 ML FLUSH IV FLUSH SCH (09:00)
--- NOTE | 2017-03-31 09:26 | HHI.OB ---
Subjective Post Operative Day: 1 Remarks doing well, pain controlled, TPO no n/v, lovett in and SCDs on no ambulation, denies KLEIN, vision changes, epigastric pain, per nursing VB normal Objective Vitals/I&O Vital Signs Date Time Temp Pulse Resp B/P (MAP) Pulse Ox O2 Delivery O2 Flow Rate FiO2 03/31/17 08:41 74 139/71 (93) 03/31/17 08:07 71 175/89 (117) 03/31/17 08:02 79 166/88 (114) 03/31/17 07:32 75 158/89 (112) 03/31/17 07:06 73 160/90 (113) 03/31/17 06:01 72 157/88 (111) 03/31/17 05:01 71 154/88 (110) 03/31/17 04:01 74 137/75 (95) 03/31/17 03:01 74 134/70 (91) 03/31/17 02:01 73 142/76 (98) 03/31/17 02:01 16 03/31/17 02:00 16 03/31/17 01:01 76 154/78 (103) 03/31/17 00:07 97.7 20 03/31/17 00:01 80 140/82 (101) 03/30/17 23:01 84 146/83 (104) 03/30/17 23:00 20 03/30/17 22:01 83 145/73 (97) 03/30/17 21:01 79 150/72 (98) 03/30/17 20:01 84 143/79 (100) 03/30/17 19:19 98.0 20 03/30/17 19:01 88 147/80 (102) 03/30/17 18:12 20 03/30/17 18:10 87 153/87 (109) 03/30/17 17:23 98.3 03/30/17 17:15 79 21 179/87 (117) 99 03/30/17 17:15 152/75 (100) 03/30/17 17:00 153/84 (107) 03/30/17 16:49 79 19 03/30/17 16:49 99 03/30/17 16:48 175/89 (117) 03/30/17 16:31 80 20 161/75 (103) 100 03/30/17 16:26 18 03/30/17 16:25 149/73 (98) 03/30/17 14:35 101 03/30/17 14:32 106 167/73 (104) 03/30/17 14:30 106 03/30/17 14:25 106 03/30/17 14:20 102 03/30/17 14:16 97 187/94 (125) 03/30/17 14:15 94 03/30/17 14:10 85 03/30/17 14:05 82 03/30/17 14:01 83 183/83 (116) 03/30/17 14:00 82 03/30/17 13:55 86 03/30/17 13:51 85 177/90 (119) 03/30/17 13:50 84 03/30/17 13:46 87 169/93 (118) 03/30/17 13:45 86 03/30/17 13:43 84 150/83 (105) 03/30/17 13:40 87 03/30/17 13:36 86 174/83 (113) 03/30/17 13:35 84 03/30/17 13:31 82 171/83 (112) 03/30/17 13:30 83 03/30/17 13:26 82 175/92 (119) 03/30/17 13:25 78 03/30/17 13:23 77 177/94 (121) 03/30/17 13:20 75 03/30/17 13:15 73 03/30/17 12:53 75 178/99 (125) 03/30/17 12:31 74 03/30/17 12:18 72 174/99 (124) 03/30/17 11:46 66 166/88 (114) 03/30/17 11:41 72 03/30/17 11:34 67 03/30/17 11:31 71 03/30/17 11:25 72 161/91 (114) Result Diagram: 03/31/17 0705 03/31/17 0446 Objective Remarks GENERAL: Well-nourished, well-developed patient. CARDIOVASCULAR: Regular rate and rhythm without murmurs, gallops, or rubs. RESPIRATORY: Breath sounds equal bilaterally. No accessory muscle use. ABDOMEN/GI: Abdomen soft, non-tender, bowel sounds present. bandage Clean, dry and intact. limited due to habitus but fundus: Firm, non-tender at umbilicus. GENITOURINARY: Light to moderate bleeding. EXTREMITIES: No cyanosis or edema, non-tender, without signs of DVT. Medications and IVs Current Medications Medications (Trade) Dose Ordered Sig/Bella Route Start Time Stop Time Status Last Admin (Trandate) 600 mg TID@0000,0800,1600 PO 03/30/17 08:00 03/31/17 07:38 (Calcium Gluconate Inj) 1 gm UNSCH PRN IV PUSH 03/30/17 12:45 (Bicitra Liq) 30 ml GEAR SHAPER PO 03/30/17 16:00 04/03/17 15:59 Lactated Ringer's 1,000 ml @ 100 mls/hr Q10H IV 03/30/17 21:19 03/31/17 17:18 03/31/17 01:02 Oxytocin 500 ml @ 100 mls/hr UNSCH X1 PRN IV 03/31/17 02:30 04/01/17 02:29 (NS Flush) 2 ml BID IV FLUSH 03/30/17 21:00 (NS Flush) 2 ml UNSCH PRN IV FLUSH 03/30/17 16:30 (Mylicon Chew) 80 mg QID PRN PO 03/30/17 16:30 (Tylenol) 650 mg Q6H PRN PO 03/30/17 16:30 (Nicole-Colace) 2 tab Q12H PRN PO 03/30/17 16:30 (M-M-R Ii Inj) 0.5 ml ONCE ONCE SQ 03/31/17 16:00 03/31/17 16:01 (Boostrix Inj) 0.5 ml ONCE ONCE IM 03/31/17 16:00 03/31/17 16:01 (Zofran Inj) 4 mg Q6H PRN IV PUSH 03/30/17 16:30 ([place] 5-325 Mg) 1 tab Q4H PRN PO 03/30/17 16:30 03/31/17 07:38 ([place] 5-325 Mg) 2 tab Q4H PRN PO 03/30/17 16:30 Magnesium Sulfate 1,000 ml @ 50 mls/hr Q20H IV 03/30/17 16:25 03/31/17 16:30 (Vasotec) 5 mg DAILY PO 03/31/17 09:00 Assessment/Plan Problem List: (1) Pre-eclampsia superimposed on chronic hypertension, antepartum ICD Codes: O11.9 - Pre-existing hypertension with pre-eclampsia, unspecified trimester; O10.019 - Pre-existing essential hypertension complicating , unspecified trimester Status: Acute (2) 28 weeks gestation of ICD Codes: Z3A.28 - 28 weeks gestation of Status: Acute (3) History of 2 sections ICD Codes: Z87.59 - Personal history of other complications of , childbirth and the puerperium Assessment and Plan 31 yo s/p RLTCS and BTL at 28w4d for CHTN w/ SIPREC w/ severe features. 1. POD #1: AF, VSS, output appropriate, continue routine post op and post care. - female in NICU 2. CHTN w/ SIPREC w/ severe features: Pt asymptomatic, BP range since MN 134-175 /75-88, required 40mg IV labetalol this AM. - Continue labetalol 600 TID and add enalapril 5mg qd. - Continue mag 2g/hr (d/c 1630), my continue if continues to have severe BPs. Mag level Ok this AM. - AM labs noted, mild transaminitis, recheck tomorrow AM. 3. Nephrotic range proteinuria: SCDs and begin lovenox this evening until d/c. 4. 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 Galo Guillaume MD Mar 31, 2017 09:26
[2017-03-31] MEDS: ACETAMINOPHEN 325 MG TAB PO PRN ×2 (14:54→21:21)
[2017-03-31] MEDS ORDERED: LABETALOL HCL 200 MG TAB PO SCH (16:00)
[2017-03-31] MEDS ORDERED: MEASLES, MUMPS, RUBELLA VACCINE 0.5 ML VIAL SQ ONE (16:00)
[2017-03-31] MEDS ORDERED: DIPHTH/TETANUS/ACEL PERTUSSIS (BOOSTER) 0.5 ML VIAL/PFS IM ONE (16:00)
[2017-03-31] MEDS: ENOXAPARIN SODIUM 60 MG/0.6 ML SYRINGE SQ SCH (18:47)
--- NOTE | 2017-03-31 19:04 | MP ---
cc: DANNA QUICK MD DATE OF SURGERY: 03/30/2017. PREOPERATIVE DIAGNOSIS: 1. Intrauterine at 28 weeks and 4 days. 2. Chronic hypertension with superimposed pre-eclampsia with severe features. 3. Atypical and typical alloimmunization . 4. History of section x2. 5. Obesity. 6. Desires sterilization. POSTOPERATIVE DIAGNOSIS: 1. Intrauterine at 28 weeks and 4 days. 2. Chronic hypertension with superimposed pre-eclampsia with severe features. 3. Atypical and typical alloimmunization. 4. History of section x2. 5. Obesity. 6. Desires sterilization. 7. Status post section and sterilization. OPERATION: Repeat low transverse delivery and bilateral tubal ligation. SURGEON: Danna Quick MD. DIABETES NURSE SURGEON: None. FINDINGS: 1. Viable female at 1529. Apgars pending. NICU. weight 1200 grams. Cephalic position. 2. Intact placenta with three vessel cord. 3. Umbilical cord gases collected, venous pending, arterial insufficient sample to run. 4. Normal pelvic anatomy free of adhesions, normal fallopian tubes and ovaries bilaterally. ANESTHESIA: Spinal. ANTIBIOTICS: 2 grams of Ancef preoperatively. ESTIMATED BLOOD LOSS: 500 cc. FLUID REPLACEMENT: 1500 cc of lactated Ringers, Pitocin and magnesium. URINE OUTPUT: 200 cc clear via [place]. SPECIMENS: Bilateral mid-isthmic segments of fallopian tubes and placenta to pathology separately, routine. DVT PROPHYLAXIS: Sequential compression devices throughout the case. COUNTS: Correct x2. TIME OUT: Time done and correct. COMPLICATIONS: none DISPOSITION: Stable to the post-anesthesia care unit and then to the floor. INDICATIONS FOR THE PROCEDURE: This patient is a 30-year-old 3, para 0-2-0-2 and now a para 0-3-0-3 who presented for admission due to worsening blood pressures and a significant increase in her baseline proteinuria from around 600mg to 6000mg. She had been controlled as an outpatient with labetalol 400 milligrams three times a day. Upon presentation, her blood pressure medicines were increased. She was started on magnesium and given betamethasone and she was stable until day 3 when she required four doses of IV medications and was still refractory to treatment. She remained asymptomatic and her hellp labs were normal with a category I tracing. Given her worsening maternal status, she was counselled for delivery. Please see the progress notes for details and consent. DESCRIPTION OF THE PROCEDURE IN DETAIL: The patient was taken to the operating room and placed in supine position with a left lateral tilt. The abdomen was prepped and draped in a sterile fashion. A Pfannenstiel incision was carried down sharply over the previous scar down to the fascia, which was extended bilaterally with Key scissors. The fascia was dissected off the underlying rectus muscle superiorly and inferiorly. The peritoneum was entered sharply with a scalpel and the abdomen was free of adhesions. The peritoneum was retracted laterally. The bladder blade was inserted. A low transverse incision was made in a curvilinear fashion in the lower uterine segment of the uterus and then extended cephalad and caudal fashion. The membranes were ruptured and clear fluid was appreciated. The physician's hand was inserted into the uterus and the head was guided towards the hysterotomy with gentle uterine pressure. The head was delivered followed by the torso and the lower extremities with ease. The had adequate tone and delayed cord clamping was performed and then handed off to the NICU team. Pitocin was bolused and the placenta was delivered with cord traction and uterine massage. The uterus was closed in a single locking layer of #0 Vicryl from [id number], using two [id number] stichees of 3-0 Vicryl hemostasis was achieved due to some oozing in the midline on the right edge. The mid-isthmic fallopian tube was grasped with a Hunter and elevated and doubly ligated with #0 plain gut suture and an elevated knuckle was transected on the right using the modified [place] technique and and then a Vesper was done on the left. The uterus was returned to the abdomen and the abdomen and uterus were irrigated and the hysterotomy was found to be hemostatic. The fascia was closed from left to right with #0 Vicryl in a running fashion. The subcutaneous tissue was irrigated and hemostatic and closed with #0 Vicryl in a running and locked fashion. The skin was closed with 3-0 Monocryl in a subcuticular fashion. The patient tolerated the procedure well and was transferred to the post-anesthesia care unit. MD MAURICIO GranadosT/VAISHALI /4:30 PM /6:40 PM KATHY
[2017-03-31] MEDS: DOCUSATE SODIUM 50 MG/SENNA 8.6 MG TAB PO PRN (21:22)
[2017-04-01] VITALS (11 sets, daily range): BP systolic 134–197; BP diastolic 67–95; PULSE 80–94; RESP 18–24; TEMP 98.2–98.9; O2SAT 98–99
[2017-04-01] MEDS: ACETAMINOPHEN/HYDROcodone 325 MG/5 MG TAB PO PRN ×5 (00:23→22:28)
[2017-04-01 06:11] LABS: ALT (GPT) 25 U/L (10-53); AST (GOT) 23 U/L (15-37); BLOOD UREA NITROGEN 16 MG/DL (7-18); CHLORIDE 109 MEQ/L (98-107); CREATININE 0.72 MG/DL (0.50-1.00); GLOMERULAR FILTRATION RATE 93 ML/MIN (>89); GLUCOSE,RANDOM 132 MG/DL (74-106); SODIUM (NA) 139 MEQ/L (136-145)
[2017-04-01 06:13] LABS: ALKALINE PHOSPHATASE 100 U/L (45-117); TOTAL BILIRUBIN ADULT 0.2 MG/DL (0.2-1.0)
[2017-04-01 06:25] LABS: AUTOMATED NEUTROPHIL # 15.2 TH/MM3 (1.8-7.7); BASOPHIL % 0.1 % (0.0-2.0); EOSINOPHIL # 0.1 TH/MM3 (0-0.4); EOSINOPHIL % 0.6 % (0.0-4.0); HEMATOCRIT 33.2 % (35.0-46.0); HEMOGLOBIN 10.9 GM/DL (11.6-15.3); LYMPH % 10.7 % (9.0-44.0); MEAN CELL VOLUME 93.7 FL (80.0-100.0); MONO % 8.4 % (0.0-8.0); MONOCYTE # 1.6 TH/MM3 (0-0.9); NEUT % 80.2 % (16.0-70.0); PLATELET COUNT 293 TH/MM3 (150-450); RED BLOOD COUNT 3.54 MIL/MM3 (4.00-5.30); RED CELL DISTRIBUTION WIDTH 15.4 % (11.6-17.2)
[2017-04-01] MEDS ORDERED: LABETALOL HCL 100 MG/20 ML VIAL IV SCH (07:15)
[2017-04-01 08:04] LABS: BANDS 6 % (0-6); LYMPHOCYTES 11 % (9-44); METAMYELOCYTES 1 % (0-1); MONOCYTES 7 % (0-8); NEUTROPHIL # MANUAL DIFF 15.6 TH/MM3 (1.8-7.7); POLYS (SEG NEUTROPHILS) 75 % (16-70)
--- NOTE | 2017-04-01 08:21 | HHI.OB ---
Subjective Post Operative Day: 1 Remarks POD#1, s/p cd, BP remain moderately elevated ,has some left flank pain,has PMHx of renal stones Objective Vitals/I&O Vital Signs Date Time Temp Pulse Resp B/P (MAP) Pulse Ox O2 Delivery O2 Flow Rate FiO2 04/01/17 08:00 98.2 80 20 170/83 (112) 04/01/17 06:15 172/73 (106) 04/01/17 06:00 88 177/78 (111) 04/01/17 06:00 98.2 24 99 04/01/17 05:30 177/78 (111) 04/01/17 05:30 98.2 88 24 99 04/01/17 00:15 98.2 80 20 148/74 (98) 03/31/17 19:40 148/72 (97) 03/31/17 19:40 99 03/31/17 19:40 98.4 87 20 03/31/17 15:02 87 114/80 (91) 03/31/17 14:52 97.9 03/31/17 14:02 79 124/71 (88) 03/31/17 13:01 83 138/73 (94) 03/31/17 12:01 83 129/56 (80) 03/31/17 12:00 17 03/31/17 11:01 82 115/66 (82) 03/31/17 11:00 18 03/31/17 10:11 81 114/53 (73) 03/31/17 10:02 82 107/52 (70) 03/31/17 10:00 17 03/31/17 09:02 79 141/88 (105) 03/31/17 09:00 18 03/31/17 08:45 17 03/31/17 08:41 74 139/71 (93) Result Diagram: 04/01/1752404/01/17524 Objective Remarks GENERAL: Well-nourished, well-developed patient. CARDIOVASCULAR: Regular rate and rhythm without murmurs, gallops, or rubs. RESPIRATORY: Breath sounds equal bilaterally. No accessory muscle use. ABDOMEN/GI: Abdomen soft, non-tender, bowel sounds present. bandage Clean, dry and intact. limited due to habitus but fundus: Firm, non-tender at umbilicus. GENITOURINARY: Light to moderate bleeding. EXTREMITIES: No cyanosis or edema, non-tender, without signs of DVT. Incision; dressing is dry/clean Medications and IVs Current Medications Medications (Trade) Dose Ordered Sig/Bella Route Start Time Stop Time Status Last Admin (Calcium Gluconate Inj) 1 gm UNSCH PRN IV PUSH 03/30/17 12:45 (Bicitra Liq) 30 ml MATHS TUTOR PO 03/30/17 16:00 04/03/17 15:59 (NS Flush) 2 ml BID IV FLUSH 03/30/17 21:00 (NS Flush) 2 ml UNSCH PRN IV FLUSH 03/30/17 16:30 (Mylicon Chew) 80 mg QID PRN PO 03/30/17 16:30 03/31/17 21:21 (Tylenol) 650 mg Q6H PRN PO 03/30/17 16:30 03/31/17 21:21 (Nicole-Colace) 2 tab Q12H PRN PO 03/30/17 16:30 03/31/17 21:22 (Zofran Inj) 4 mg Q6H PRN IV PUSH 03/30/17 16:30 ([employer] 5-325 Mg) 1 tab Q4H PRN PO 03/30/17 16:30 04/01/17 04:08 ([employer] 5-325 Mg) 2 tab Q4H PRN PO 03/30/17 16:30 (Vasotec) 5 mg DAILY PO 03/31/17 09:00 03/31/17 09:59 (Lovenox Inj) 60 mg Q24H SQ 03/31/17 16:00 03/31/17 18:47 (Trandate) 400 mg BID PO 03/31/17 21:00 03/31/17 21:21 (Trandate Inj) 20 mg NOW IV 04/01/17 07:15 04/01/17 09:00 Assessment/Plan Problem List: (1) Pre-eclampsia superimposed on chronic hypertension, antepartum ICD Codes: O11.9 - Pre-existing hypertension with pre-eclampsia, unspecified trimester; O10.019 - Pre-existing essential hypertension complicating , unspecified trimester Status: Acute (2) 28 weeks gestation of ICD Codes: Z3A.28 - 28 weeks gestation of Status: Acute (3) History of 2 sections ICD Codes: Z87.59 - Personal history of other complications of , childbirth and the puerperium Assessment and Plan 31 yo s/p RLTCS and BTL at 28w4d for CHTN w/ SIPREC w/ severe features. 1. POD #1: AF, VSS, output appropriate, continue routine post op and post care. - female in NICU 2. CHTN, adjust dose of vasotec to 5 mg bid 3. flank pain, monitor pain,consider imaging if symptoms worsen. Discharge Planning does not meet criteria Poli Goel MD Apr 01, 2017 08:21
[2017-04-01] MEDS: ACETAMINOPHEN 325 MG TAB PO PRN (08:56)
[2017-04-01] MEDS: LABETALOL HCL 200 MG TAB PO SCH (08:56)
[2017-04-01] MEDS: DOCUSATE SODIUM 50 MG/SENNA 8.6 MG TAB PO PRN ×2 (08:56→22:27)
[2017-04-01] MEDS: ENALAPRIL MALEATE 5 MG TAB PO SCH ×2 (08:57→18:35)
[2017-04-01] MEDS: ENOXAPARIN SODIUM 60 MG/0.6 ML SYRINGE SQ SCH (17:28)
[2017-04-01] MEDS ORDERED: LABETALOL HCL 100 MG/20 ML VIAL ONE (20:25)
[2017-04-01] MEDS ORDERED: LABETALOL HCL 100 MG/20 ML VIAL IV PUSH ONE (20:45)
[2017-04-02] VITALS (29 sets, daily range): BP systolic 127–172; BP diastolic 52–87; PULSE 80–93; RESP 17–20; TEMP 97.7–98.6; O2SAT 99
[2017-04-02] MEDS: ACETAMINOPHEN/HYDROcodone 325 MG/5 MG TAB PO PRN ×4 (03:48→17:23)
--- NOTE | 2017-04-02 08:13 | HHI.OB ---
Subjective Post Operative Day: 3 Remarks PT still with headaches, blurry vision and ruq pain. KUB was negative. Objective Vitals/I&O Vital Signs Date Time Temp Pulse Resp B/P (MAP) Pulse Ox O2 Delivery O2 Flow Rate FiO2 04/02/17 08:00 87 172/81 (111) 04/02/17 05:15 81 140/87 (104) 04/02/17 01:00 80 04/02/17 00:40 147/86 (106) 04/02/17 00:38 97.7 18 99 04/01/17 21:35 89 134/67 (89) 04/01/17 20:00 98.2 88 18 197/85 (122) 98 04/01/17 18:15 89 178/95 (122) 04/01/17 17:20 91 170/79 (109) 04/01/17 15:49 98.6 94 21 169/73 (105) 04/01/17 11:47 98.9 86 20 141/84 (103) Result Diagram: 04/01/1752404/01/17524 Objective Remarks GENERAL: Well-nourished, well-developed patient. CARDIOVASCULAR: Regular rate and rhythm without murmurs, gallops, or rubs. RESPIRATORY: Breath sounds equal bilaterally. No accessory muscle use. ABDOMEN/GI: Abdomen soft, non-tender, bowel sounds present. limited due to habitus but fundus: Firm, non-tender at umbilicus. GENITOURINARY: Light to moderate bleeding. EXTREMITIES: No cyanosis or edema, non-tender, without signs of DVT. Medications and IVs Current Medications Medications (Trade) Dose Ordered Sig/Bella Route Start Time Stop Time Status Last Admin (Calcium Gluconate Inj) 1 gm UNSCH PRN IV PUSH 03/30/17 12:45 (Bicitra Liq) 30 ml SERVICE STATION ATTENDANT PO 03/30/17 16:00 04/03/17 15:59 (NS Flush) 2 ml BID IV FLUSH 03/30/17 21:00 (NS Flush) 2 ml UNSCH PRN IV FLUSH 03/30/17 16:30 (Mylicon Chew) 80 mg QID PRN PO 03/30/17 16:30 03/31/17 21:21 (Tylenol) 650 mg Q6H PRN PO 03/30/17 16:30 04/01/17 08:56 (Nicole-Colace) 2 tab Q12H PRN PO 03/30/17 16:30 04/01/17 22:27 (Zofran Inj) 4 mg Q6H PRN IV PUSH 03/30/17 16:30 ([place] 5-325 Mg) 1 tab Q4H PRN PO 03/30/17 16:30 04/01/17 18:35 ([place] 5-325 Mg) 2 tab Q4H PRN PO 03/30/17 16:30 04/02/17 07:49 (Lovenox Inj) 60 mg Q24H SQ 03/31/17 16:00 04/01/17 17:28 (Trandate) 400 mg BID PO 03/31/17 21:00 04/01/17 08:56 (Vasotec) 5 mg BID PO 04/01/17 09:00 04/01/17 18:35 Assessment/Plan Problem List: (1) Pre-eclampsia superimposed on chronic hypertension, antepartum ICD Codes: O11.9 - Pre-existing hypertension with pre-eclampsia, unspecified trimester; O10.019 - Pre-existing essential hypertension complicating , unspecified trimester Status: Acute (2) 28 weeks gestation of ICD Codes: Z3A.28 - 28 weeks gestation of Status: Acute (3) History of 2 sections ICD Codes: Z87.59 - Personal history of other complications of , childbirth and the puerperium Assessment and Plan 31 yo s/p RLTCS and BTL at 28w4d for CHTN w/ DAYSI w/ severe features. 1. POD #3:continue routine post op and post care. - female in NICU 2. DAYSI adjust dose of vasotec to 5 mg bid and labetalol 400mg TID, repeat pih labs this am with increase in LFT. She still has features of severity, will return to LD for repeat magnesium. Discharge Planning does not meet criteria Radhika Wang MD Apr 02, 2017 08:13
[2017-04-02] MEDS: LABETALOL HCL 200 MG TAB PO SCH ×3 (08:15→18:24)
[2017-04-02] MEDS: ENALAPRIL MALEATE 5 MG TAB PO SCH (08:15)
[2017-04-02] MEDS: SODIUM CHLORIDE 0.9% FLUSH 10 ML FLUSH IV FLUSH SCH ×2 (09:00→21:00)
[2017-04-02 10:12] LABS: AUTOMATED NEUTROPHIL # 14.7 TH/MM3 (1.8-7.7); BASOPHIL # 0.1 TH/MM3 (0-0.2); BASOPHIL % 0.5 % (0.0-2.0); EOSINOPHIL # 0.3 TH/MM3 (0-0.4); EOSINOPHIL % 1.6 % (0.0-4.0); HEMATOCRIT 33.3 % (35.0-46.0); HEMOGLOBIN 11.5 GM/DL (11.6-15.3); LYMPH % 11.9 % (9.0-44.0); LYMPHOCYTE # 2.2 TH/MM3 (1.0-4.8); MEAN CELL VOLUME 92.7 FL (80.0-100.0); MEAN CORPUSCULAR HGB CONC 34.5 % (32.0-36.0); MEAN PLATELET VOLUME 7.7 FL (7.0-11.0); MONO % 5.6 % (0.0-8.0); NEUT % 80.4 % (16.0-70.0); PLATELET COUNT 357 TH/MM3 (150-450); RED BLOOD COUNT 3.59 MIL/MM3 (4.00-5.30); RED CELL DISTRIBUTION WIDTH 15.3 % (11.6-17.2); WHITE BLOOD COUNT 18.3 TH/MM3 (4.0-11.0)
--- NOTE | 2017-04-02 10:17 | RADRPT ---
EXAM DATE/TIME: 04/02/2017 09:24 [place] COMPARISON: No previous studies available for comparison. INDICATIONS : Right flank pain that radiates around right side of body. MEDICAL HISTORY : H/O kidney disease. Preeclampsia. SURGICAL HISTORY : None. ENCOUNTER: Subsequent ACUITY: 3 days PAIN SCORE: 7/10 LOCATION: Bilateral Abdomen. FINDINGS: Supine view of the abdomen was performed. The abdominal bowel gas pattern is normal. No abnormal ma sses, calcifications, or organomegaly is seen. The osseous structures are unremarkable. CONCLUSION: 1. Negative KUB. Temo Vazquez MD on April 02, 2017 at 10:13 Board Certified Radiologist. This report was verified electronically.
[2017-04-02 10:39] LABS: BANDS 2 % (0-6); LYMPHOCYTES 6 % (9-44); METAMYELOCYTES 1 % (0-1); MONOCYTES 2 % (0-8); MYELOCYTES 2 % (0-0); NEUTROPHIL # MANUAL DIFF 16.5 TH/MM3 (1.8-7.7); POLYS (SEG NEUTROPHILS) 85 % (16-70)
[2017-04-02 10:52] LABS: ALBUMIN 2.2 GM/DL (3.4-5.0); ALKALINE PHOSPHATASE 106 U/L (45-117); ALT (GPT) 34 U/L (10-53); AST (GOT) 49 U/L (15-37); BICARBONATE 21.9 MEQ/L (21.0-32.0); BLOOD UREA NITROGEN 14 MG/DL (7-18); CALCIUM 8.9 MG/DL (8.5-10.1); CHLORIDE 107 MEQ/L (98-107); CREATININE 0.57 MG/DL (0.50-1.00); GLOMERULAR FILTRATION RATE 122 ML/MIN (>89); GLUCOSE,RANDOM 111 MG/DL (74-106); SODIUM (NA) 138 MEQ/L (136-145); TOTAL BILIRUBIN ADULT 0.3 MG/DL (0.2-1.0); TOTAL PROTEIN 6.8 GM/DL (6.4-8.2)
[2017-04-02] MEDS: LACTATED RINGER'S 1000 ML INJ 1,000 ML IV SCH (13:21)
[2017-04-02] MEDS: MAGNESIUM SULFATE 40 GM PREMIX 1,000 ML IV SCH (13:23)
[2017-04-02] MEDS: ENOXAPARIN SODIUM 60 MG/0.6 ML SYRINGE SQ SCH (17:23)
[2017-04-02 23:28] LABS: AUTOMATED NEUTROPHIL # 12.3 TH/MM3 (1.8-7.7); BASOPHIL # 0.1 TH/MM3 (0-0.2); BASOPHIL % 0.4 % (0.0-2.0); EOSINOPHIL # 0.4 TH/MM3 (0-0.4); EOSINOPHIL % 2.3 % (0.0-4.0); HEMATOCRIT 32.1 % (35.0-46.0); HEMOGLOBIN 10.7 GM/DL (11.6-15.3); LYMPH % 13.8 % (9.0-44.0); LYMPHOCYTE # 2.2 TH/MM3 (1.0-4.8); MEAN CELL VOLUME 93.6 FL (80.0-100.0); MEAN CORPUSCULAR HEMOGLOBIN 31.2 PG (27.0-34.0); MEAN CORPUSCULAR HGB CONC 33.4 % (32.0-36.0); MEAN PLATELET VOLUME 7.5 FL (7.0-11.0); MONO % 8.4 % (0.0-8.0); MONOCYTE # 1.4 TH/MM3 (0-0.9); NEUT % 75.1 % (16.0-70.0); PLATELET COUNT 356 TH/MM3 (150-450); RED BLOOD COUNT 3.43 MIL/MM3 (4.00-5.30); RED CELL DISTRIBUTION WIDTH 15.4 % (11.6-17.2); WHITE BLOOD COUNT 16.3 TH/MM3 (4.0-11.0)
[2017-04-02 23:59] LABS: ALBUMIN 2.2 GM/DL (3.4-5.0); AST (GOT) 57 U/L (15-37); BICARBONATE 22.6 MEQ/L (21.0-32.0); BLOOD UREA NITROGEN 15 MG/DL (7-18); CALCIUM 8.9 MG/DL (8.5-10.1); CHLORIDE 104 MEQ/L (98-107); CREATININE 0.54 MG/DL (0.50-1.00); GLOMERULAR FILTRATION RATE 130 ML/MIN (>89); GLUCOSE,RANDOM 59 MG/DL (74-106); SODIUM (NA) 137 MEQ/L (136-145)
[2017-04-03] VITALS (24 sets, daily range): BP systolic 118–154; BP diastolic 57–83; PULSE 77–93; RESP 16–20; TEMP 98.1–98.5
[2017-04-03 00:01] LABS: ALT (GPT) 40 U/L (10-53)
[2017-04-03 00:02] LABS: ALKALINE PHOSPHATASE 109 U/L (45-117); TOTAL BILIRUBIN ADULT 0.3 MG/DL (0.2-1.0); TOTAL PROTEIN 6.5 GM/DL (6.4-8.2)
[2017-04-03] MEDS: LACTATED RINGER'S 1000 ML INJ 1,000 ML IV SCH ×2 (02:07→15:27)
[2017-04-03 06:11] LABS: ALBUMIN 2.3 GM/DL (3.4-5.0); ALT (GPT) 42 U/L (10-53); AST (GOT) 52 U/L (15-37); BICARBONATE 22.5 MEQ/L (21.0-32.0); BLOOD UREA NITROGEN 13 MG/DL (7-18); CHLORIDE 105 MEQ/L (98-107); CREATININE 0.52 MG/DL (0.50-1.00); GLOMERULAR FILTRATION RATE 136 ML/MIN (>89); GLUCOSE,RANDOM 89 MG/DL (74-106); SODIUM (NA) 139 MEQ/L (136-145)
[2017-04-03] MEDS: ACETAMINOPHEN/HYDROcodone 325 MG/5 MG TAB PO PRN ×4 (06:15→23:58)
[2017-04-03 06:21] LABS: ALKALINE PHOSPHATASE 99 U/L (45-117); TOTAL BILIRUBIN ADULT 0.2 MG/DL (0.2-1.0); TOTAL PROTEIN 6.7 GM/DL (6.4-8.2)
[2017-04-03 06:46] LABS: HEMATOCRIT 34.1 % (35.0-46.0); HEMOGLOBIN 11.3 GM/DL (11.6-15.3); MEAN CELL VOLUME 92.7 FL (80.0-100.0); MEAN CORPUSCULAR HEMOGLOBIN 30.8 PG (27.0-34.0); MEAN CORPUSCULAR HGB CONC 33.2 % (32.0-36.0); MEAN PLATELET VOLUME 7.8 FL (7.0-11.0); PLATELET COUNT 375 TH/MM3 (150-450); RED BLOOD COUNT 3.68 MIL/MM3 (4.00-5.30); RED CELL DISTRIBUTION WIDTH 15.3 % (11.6-17.2); WHITE BLOOD COUNT 14.3 TH/MM3 (4.0-11.0)
--- NOTE | 2017-04-03 08:27 | HHI.OB ---
Subjective Post Day: 4 Remarks s/p repeat LTCD and BTL at 28 wks for CHTN with DAYSI with severe features, infant female in NICU, doing well; pt with severe symptoms again yesterday as well as severe pressures, sent back to L&D for repeat magnesium sulfate treatment, will be 24h around 1330P today; feeling markedly improved this AM; RUQ pain resolved, KLEIN resolved, edema minimal Objective Vitals/I&O Vital Signs Date Time Temp Pulse Resp B/P (MAP) Pulse Ox O2 Delivery O2 Flow Rate FiO2 04/03/17 08:01 81 154/75 (101) 04/03/17 07:01 90 146/74 (98) 04/03/17 06:01 77 147/83 (104) 04/03/17 05:01 77 139/73 (95) 04/03/17 05:00 16 04/03/17 04:01 78 143/66 (91) 04/03/17 04:00 18 04/03/17 03:07 79 134/63 (86) 04/03/17 02:58 18 04/03/17 02:01 79 151/73 (99) 04/03/17 02:00 18 04/03/17 01:01 80 147/63 (91) 04/03/17 01:00 18 04/03/17 00:01 86 144/57 (86) 04/02/17 23:18 18 04/02/17 23:01 88 144/70 (94) 04/02/17 22:09 18 04/02/17 22:01 83 140/66 (90) 04/02/17 21:09 20 04/02/17 21:01 93 137/63 (87) 04/02/17 20:23 18 04/02/17 20:02 90 136/52 (80) 04/02/17 19:11 88 145/74 (97) 04/02/17 19:09 98.6 04/02/17 19:09 18 04/02/17 18:00 18 04/02/17 17:08 88 143/58 (86) 04/02/17 17:00 18 04/02/17 16:01 87 152/77 (102) 04/02/17 15:44 86 145/74 (97) 04/02/17 15:43 17 04/02/17 15:01 87 148/54 (85) 04/02/17 14:15 18 04/02/17 14:01 86 143/59 (87) 04/02/17 13:07 90 152/68 (96) 04/02/17 13:05 18 04/02/17 13:04 98.0 04/02/17 11:10 89 127/70 (89) 04/02/17 09:12 86 168/80 (109) Objective Remarks GENERAL: Well-nourished, well-developed patient. Obese. CARDIOVASCULAR: Regular rate and rhythm without murmurs, gallops, or rubs. RESPIRATORY: Breath sounds equal bilaterally. No accessory muscle use. ABDOMEN/GI: Abdomen soft, non-tender. Fundus: Firm, non-tender at umbilicus. Incision: c/d/i; under pannus; reviewed wound care w/ pt again; placed clean dry pad over incision line to prevent skin to skin contact GENITOURINARY: Light bleeding. EXTREMITIES: No cyanosis or edema, non-tender, without signs of DVT. No edema today. Medications and IVs Current Medications Medications (Trade) Dose Ordered Sig/Bella Route Start Time Stop Time Status Last Admin (Calcium Gluconate Inj) 1 gm UNSCH PRN IV PUSH 03/30/17 12:45 (Bicitra Liq) 30 ml FISHERIES TECHNICIAN PO 03/30/17 16:00 04/03/17 15:59 (NS Flush) 2 ml BID IV FLUSH 03/30/17 21:00 (NS Flush) 2 ml UNSCH PRN IV FLUSH 03/30/17 16:30 (Mylicon Chew) 80 mg QID PRN PO 03/30/17 16:30 03/31/17 21:21 (Tylenol) 650 mg Q6H PRN PO 03/30/17 16:30 04/01/17 08:56 (Nicole-Colace) 2 tab Q12H PRN PO 03/30/17 16:30 04/01/17 22:27 (Zofran Inj) 4 mg Q6H PRN IV PUSH 03/30/17 16:30 ([place] 5-325 Mg) 1 tab Q4H PRN PO 03/30/17 16:30 04/01/17 18:35 ([place] 5-325 Mg) 2 tab Q4H PRN PO 03/30/17 16:30 04/03/17 06:15 (Lovenox Inj) 60 mg Q24H SQ 03/31/17 16:00 04/02/17 17:23 (Trandate) 400 mg TID PO 04/02/17 13:00 04/02/17 18:24 Lactated Ringer's 1,000 ml @ 75 mls/hr [id number] IV 04/02/17 12:47 04/03/17 02:07 Magnesium Sulfate 1,000 ml @ 50 mls/hr Q20H IV 04/02/17 12:47 04/02/17 13:23 Assessment/Plan Problem List: (1) Pre-eclampsia superimposed on chronic hypertension, delivered ICD Codes: O11.4 - Pre-existing hypertension with pre-eclampsia, complicating childbirth; O10.92 - Unspecified pre-existing hypertension complicating childbirth (2) delivery after section ICD Codes: O60.10X0 - labor with delivery, unspecified trimester, not applicable or unspecified; O34.219 - Maternal care for unspecified type scar from previous delivery Status: Acute (3) Status post repeat low transverse section ICD Codes: Z98.891 - History of uterine scar from previous surgery Status: Acute (4) S/P tubal ligation ICD Codes: Z98.51 - Tubal ligation status Status: Acute (5) 28 weeks gestation of ICD Codes: Z3A.28 - 28 weeks gestation of Status: Acute (6) History of 2 sections ICD Codes: Z87.59 - Personal history of other complications of , childbirth and the puerperium Status: Chronic Assessment and Plan 31 yo s/p RLTCS and BTL at 28w4d for CHTN w/ DAYSI w/ severe features. 1. POD #4: on POD#3 (Saturday) pt had severe BP as well as severe symptoms return , RUQ pain, blurred vision, headache; was transferred back to L&D for repeat magnesium sulfate IV course; started at 1330P yesterday, will continue x 24h; changed oral meds, discontinued enalapril as not best choice due to h/o chronic kidney disease; increased labetalol 400mg bid to tid; will see if need to add addt'l therapy after magnesium discontinued today - female in NICU - reviewed in detail proper wound care; pt obese with chronic health issues, risk for poor healing; pt & present & voice understanding 2. CHTN with DAYSI stopped vasotec on 04/02/17, increased labetalol 400mg from BID to TID - repeat pih labs 04/02/17 with increase in LFT. will repeat today at 1300 & again tmrw AM; symptoms improved/resolved now that on magnesium sulfate 3. dispo: not meeting criteria; anticipate at least another 1-2d stay Discharge Planning does not meet criteria Angeles Lee MD Apr 03, 2017 08:27
[2017-04-03] MEDS: LABETALOL HCL 200 MG TAB PO SCH ×3 (08:45→20:51)
[2017-04-03] MEDS: SODIUM CHLORIDE 0.9% FLUSH 10 ML FLUSH IV FLUSH SCH (09:00)
[2017-04-03] MEDS: MAGNESIUM SULFATE 40 GM PREMIX 1,000 ML IV SCH (13:23)
[2017-04-03] MEDS: ENOXAPARIN SODIUM 60 MG/0.6 ML SYRINGE SQ SCH (17:00)
[2017-04-03] MEDS: DOCUSATE SODIUM 50 MG/SENNA 8.6 MG TAB PO PRN (19:50)
[2017-04-04] VITALS (8 sets, daily range): BP systolic 123–167; BP diastolic 59–98; PULSE 65–91; RESP 18; TEMP 97.6–98.5
[2017-04-04] MEDS: ACETAMINOPHEN/HYDROcodone 325 MG/5 MG TAB PO PRN ×3 (03:56→20:10)
[2017-04-04] MEDS ORDERED: LABETALOL HCL 200 MG TAB PO SCH (06:00)
--- NOTE | 2017-04-04 07:46 | HHI.OB ---
Subjective Post Operative Day: 5 Remarks states having headache and seeing spots this AM; had severe range BP around 5A today and labetalol 400mg po oral dose given 1h early; moderate range BP now Objective Vitals/I&O Vital Signs Date Time Temp Pulse Resp B/P (MAP) Pulse Ox O2 Delivery O2 Flow Rate FiO2 04/04/17 06:30 151/98 (115) 04/04/17 05:00 73 18 167/91 (116) 04/04/17 05:00 97.6 04/04/17 04:00 73 18 167/91 (116) 04/04/17 04:00 97.6 04/04/17 00:00 97.9 65 18 128/59 (82) 04/03/17 20:00 93 04/03/17 20:00 98.2 20 04/03/17 20:00 118/70 (86) 04/03/17 17:00 125/80 (95) 04/03/17 17:00 18 04/03/17 14:02 88 143/61 (88) 04/03/17 13:01 93 149/77 (101) 04/03/17 12:23 83 142/70 (94) 04/03/17 12:01 81 139/78 (98) 04/03/17 12:00 98.5 04/03/17 11:01 83 129/67 (87) 04/03/17 10:34 83 124/60 (81) 04/03/17 08:01 81 154/75 (101) 04/03/17 08:00 98.1 18 Result Diagram: 04/03/17 0446 04/03/17 0446 Objective Remarks GENERAL: Well-nourished, well-developed patient. Obese. CARDIOVASCULAR: Regular rate and rhythm without murmurs, gallops, or rubs. RESPIRATORY: Breath sounds equal bilaterally. No accessory muscle use. ABDOMEN/GI: Abdomen soft, non-tender, bowel sounds present. incision c/d/i GENITOURINARY: Light bleeding. EXTREMITIES: No cyanosis or edema, non-tender, without signs of DVT. Medications and IVs Current Medications Medications (Trade) Dose Ordered Sig/Bella Route Start Time Stop Time Status Last Admin (Calcium Gluconate Inj) 1 gm UNSCH PRN IV PUSH 03/30/17 12:45 (NS Flush) 2 ml BID IV FLUSH 03/30/17 21:00 (NS Flush) 2 ml UNSCH PRN IV FLUSH 03/30/17 16:30 (Mylicon Chew) 80 mg QID PRN PO 03/30/17 16:30 03/31/17 21:21 (Tylenol) 650 mg Q6H PRN PO 03/30/17 16:30 04/01/17 08:56 (Nicole-Colace) 2 tab Q12H PRN PO 03/30/17 16:30 04/03/17 19:50 (Zofran Inj) 4 mg Q6H PRN IV PUSH 03/30/17 16:30 ([place] 5-325 Mg) 1 tab Q4H PRN PO 03/30/17 16:30 04/01/17 18:35 ([place] 5-325 Mg) 2 tab Q4H PRN PO 03/30/17 16:30 04/04/17 03:56 (Lovenox Inj) 60 mg Q24H SQ 03/31/17 16:00 04/03/17 17:00 Lactated Ringer's 1,000 ml @ 75 mls/hr [id number] IV 04/02/17 12:47 04/03/17 02:07 (Apresoline) 10 mg Q8HR PO 04/04/17 07:45 UNV (Trandate) 600 mg Q8HR PO 04/04/17 14:00 UNV Assessment/Plan Problem List: (1) Pre-eclampsia superimposed on chronic hypertension, delivered ICD Codes: O11.4 - Pre-existing hypertension with pre-eclampsia, complicating childbirth; O10.92 - Unspecified pre-existing hypertension complicating childbirth (2) delivery after section ICD Codes: O60.10X0 - labor with delivery, unspecified trimester, not applicable or unspecified; O34.219 - Maternal care for unspecified type scar from previous delivery Status: Acute (3) Status post repeat low transverse section ICD Codes: Z98.891 - History of uterine scar from previous surgery Status: Acute (4) S/P tubal ligation ICD Codes: Z98.51 - Tubal ligation status Status: Acute (5) 28 weeks gestation of ICD Codes: Z3A.28 - 28 weeks gestation of Status: Acute (6) History of 2 sections ICD Codes: Z87.59 - Personal history of other complications of , childbirth and the puerperium Status: Chronic Assessment and Plan 31 yo s/p RLTCS and BTL at 28w4d for CHTN w/ DAYSI w/ severe features. 1. POD #5: on POD#3 (Saturday) pt had severe BP as well as severe symptoms return , RUQ pain, blurred vision, headache; was transferred back to L&D for repeat magnesium sulfate IV course x 24h; changed oral meds, discontinued enalapril as not best choice due to h/o chronic kidney disease; increased labetalol 400mg bid to tid; now since magnesium discontinued pt had severe range pressure overnight & KLEIN & spots in vision again this AM; will increase labetalol to 600mg tid and add hydralazine 10mg tid - female in NICU - reviewed in detail proper wound care; pt obese with chronic health issues, risk for poor healing; pt & present & voice understanding 2. CHTN with DAYSI stopped vasotec on 04/02/17, increased labetalol 400mg from BID to TID > 04/04/17 will increase labetalol to 600mg tid and add hydralazine 10mg tid - repeat pih labs 04/02/17 with increase in LFT. stabilized/improving 3. dispo: not meeting criteria; anticipate at least another 1-2d stay Discharge Planning does not meet criteria Angeles Lee MD Apr 04, 2017 07:46
[2017-04-04] MEDS: DOCUSATE SODIUM 50 MG/SENNA 8.6 MG TAB PO PRN (08:17)
[2017-04-04] MEDS: hydrALAZINE HCL 10 MG TAB PO SCH ×3 (09:11→22:13)
[2017-04-04] MEDS: LABETALOL HCL 300 MG TAB PO SCH ×2 (13:56→22:13)
[2017-04-04] MEDS: ENOXAPARIN SODIUM 60 MG/0.6 ML SYRINGE SQ SCH (15:36)
[2017-04-04] MEDS: SODIUM CHLORIDE 0.9% FLUSH 10 ML FLUSH IV FLUSH SCH (20:13)
[2017-04-05] VITALS: BP 134/53; PULSE 80; RESP 18; TEMP 97.7
[2017-04-05] MEDS: ACETAMINOPHEN/HYDROcodone 325 MG/5 MG TAB PO PRN ×2 (00:34→06:20)
[2017-04-05 04:00] VITALS: BP 142/93; PULSE 74; RESP 18; TEMP 97.5
[2017-04-05] MEDS: LABETALOL HCL 300 MG TAB PO SCH ×2 (06:19→13:34)
[2017-04-05] MEDS: hydrALAZINE HCL 10 MG TAB PO SCH ×2 (06:20→13:34)
[2017-04-05 08:00] VITALS: BP 119/69; PULSE 69; RESP 18; TEMP 97.9
--- NOTE | 2017-04-05 08:07 | HHI.OB ---
Subjective Post Operative Day: 6 Remarks headache with scotomata persistent for 3rd day, on labetolol 600 mg TID, hydralazine 10mg po TID, BPs improving Objective Vitals/I&O Vital Signs Date Time Temp Pulse Resp B/P (MAP) Pulse Ox O2 Delivery O2 Flow Rate FiO2 04/05/17 04:00 74 142/93 (109) 04/05/17 04:00 97.5 18 04/05/17 00:00 97.7 80 18 134/53 (80) 04/04/17 22:00 74 18 123/89 (100) 04/04/17 20:00 144/71 (95) 04/04/17 20:00 98.5 88 18 04/04/17 13:56 18 04/04/17 13:56 91 151/72 (98) 04/04/17 08:15 98.0 83 18 149/72 (97) Result Diagram: 04/03/1744504/03/17445 Objective Remarks GENERAL: Well-nourished, well-developed patient. Obese. CARDIOVASCULAR: Regular rate and rhythm without murmurs, gallops, or rubs. RESPIRATORY: Breath sounds equal bilaterally. No accessory muscle use. ABDOMEN/GI: Abdomen soft, non-tender, bowel sounds present. incision c/d/i GENITOURINARY: Light bleeding. EXTREMITIES: No cyanosis or edema, non-tender, without signs of DVT. Medications and IVs Current Medications Medications (Trade) Dose Ordered Sig/Bella Route Start Time Stop Time Status Last Admin (Calcium Gluconate Inj) 1 gm UNSCH PRN IV PUSH 03/30/17 12:45 (NS Flush) 2 ml BID IV FLUSH 03/30/17 21:00 04/04/17 20:13 (NS Flush) 2 ml UNSCH PRN IV FLUSH 03/30/17 16:30 (Mylicon Chew) 80 mg QID PRN PO 03/30/17 16:30 03/31/17 21:21 (Tylenol) 650 mg Q6H PRN PO 03/30/17 16:30 04/01/17 08:56 (Nicole-Colace) 2 tab Q12H PRN PO 03/30/17 16:30 04/04/17 08:17 (Zofran Inj) 4 mg Q6H PRN IV PUSH 03/30/17 16:30 ([place] 5-325 Mg) 1 tab Q4H PRN PO 03/30/17 16:30 04/05/17 06:20 ([place] 5-325 Mg) 2 tab Q4H PRN PO 03/30/17 16:30 04/05/17 00:34 (Lovenox Inj) 60 mg Q24H SQ 03/31/17 16:00 04/04/17 15:36 Lactated Ringer's 1,000 ml @ 75 mls/hr [id number] IV 04/02/17 12:47 04/03/17 02:07 (Apresoline) 10 mg Q8HR PO 04/04/17 07:45 04/05/17 06:20 (Trandate) 600 mg Q8HR PO 04/04/17 14:00 04/05/17 06:19 Assessment/Plan Problem List: (1) Pre-eclampsia superimposed on chronic hypertension, delivered ICD Codes: O11.4 - Pre-existing hypertension with pre-eclampsia, complicating childbirth; O10.92 - Unspecified pre-existing hypertension complicating childbirth (2) delivery after section ICD Codes: O60.10X0 - labor with delivery, unspecified trimester, not applicable or unspecified; O34.219 - Maternal care for unspecified type scar from previous delivery Status: Acute (3) Status post repeat low transverse section ICD Codes: Z98.891 - History of uterine scar from previous surgery Status: Acute (4) S/P tubal ligation ICD Codes: Z98.51 - Tubal ligation status Status: Acute (5) 28 weeks gestation of ICD Codes: Z3A.28 - 28 weeks gestation of Status: Acute (6) History of 2 sections ICD Codes: Z87.59 - Personal history of other complications of , childbirth and the puerperium Status: Chronic Assessment and Plan 31 yo s/p RLTCS and BTL at 28w4d for CHTN w/ DAYSI w/ severe features. 1. POD #6: on POD#3 (Saturday) pt had severe BP as well as severe symptoms return , RUQ pain, blurred vision, headache; was transferred back to L&D for repeat magnesium sulfate IV course x 24h; changed oral meds, discontinued enalapril as not best choice due to h/o chronic kidney disease; increased labetalol to 600mg tid and added hydralazine 10mg tid, still with KLEIN today - female in NICU, 2. CHTN with DAYSI 3. dispo: not meeting criteria; anticipate at least another 1-2d stay 4. will try fioricet, pt has taken this in past for migraines 5. Medicine consult Discharge Planning does not meet criteria Attending Attestation pt seen by Sadaf Pinto MD Apr 05, 2017 08:07
[2017-04-05] MEDS ORDERED: ACETAMIN 325 MG/BUTALBITAL 50 MG/CAFFEINE 40 MG TAB PO PRN (08:15)
--- NOTE | 2017-04-05 12:40 | RADRPT ---
EXAM DATE/TIME: 04/05/2017 12:17 [place] COMPARISON: No previous studies available for comparison. INDICATIONS : Headache 6 days post . RADIATION DOSE: 56.35 CTDIvol (mGy) MEDICAL HISTORY : Hypertension. SURGICAL HISTORY : section. ENCOUNTER: Initial ACUITY: 1 day PAIN SCALE: 6/10 LOCATION: cranial TECHNIQUE: Multiple contiguous axial images were obtained of the head. Using automated exposure control and adj ustment of the mA and/or kV according to patient size, radiation dose was kept as low as reasonably a chievable to obtain optimal diagnostic quality images. DICOM format image data is available electro nically for review and comparison. FINDINGS: CEREBRUM: The ventricles are normal for age. No evidence of midline shift, mass lesion, hemorrhage or acute in farction. No extra-axial fluid collections are seen. POSTERIOR FOSSA: The cerebellum and brainstem are intact. The 4th ventricle is midline. The cerebellopontine angle i s unremarkable. EXTRACRANIAL: The visualized portion of the orbits is intact. SKULL: The calvaria is intact. No evidence of skull fracture. CONCLUSION: Negative for acute process. Jean-Claude Vazquez MD FACR on April 05, 2017 at 12:37 Board Certified Radiologist. This report was verified electronically.
[2017-04-05 13:00] VITALS: BP 142/81; PULSE 80; RESP 18
--- NOTE | 2017-04-05 13:04 | PD.CONS ---
HPI Service [facility] Consult Requested By OB Reason for Consult medical management , HTN Primary Care Physician No Primary Care Physician Diagnoses: (1) Pre-eclampsia superimposed on chronic hypertension, delivered History of Present Illness 31-year-old female with past medical history of chronic hypertension status post delivery with antepartum and preeclampsia. Patient with persistent high blood pressures, however blood pressure is better controlled now improving medications. Patient complains of headaches and dizziness. Patient says she had a normal 2-D echo done in June 2016 and was told it was normal. Patient denies any chest pain. She has time shortness of breath however doesn't require oxygen. Her main complaint is headaches frontal, persistent, she resected helped a little bit but not much, says pain medications that she is currently on doesn't help the headache however it helps with the pain in her belly post . No fever or chills. No cough. No palpitations. No wheezing. No focal motor deficit. No seizures. Review of Systems Except as stated in HPI: all other systems reviewed are Neg Past Family Social History Allergies: Coded Allergies: Sulfa (Sulfonamide Antibiotics) (Unverified Allergy, Severe, swell, ) adhesive tape (Verified Allergy, Severe, blisters, 03/27/17) diatrizoate meglumine (Unverified Allergy, Severe, VOMITING , 12/25/16) droperidol (Unverified Allergy, Severe, Anaphylaxis, 12/25/16) gadobenic acid (Unverified Allergy, Severe, VOMITING , 12/25/16) gadodiamide (Unverified Allergy, Severe, VOMITING , 12/25/16) gadoteridol (Unverified Allergy, Severe, VOMITING , 12/25/16) iodixanol (Unverified Allergy, Severe, VOMITING , 12/25/16) iohexol (Unverified Allergy, Severe, VOMITING , 12/25/16) ketorolac (Unverified Allergy, Severe, ITCHING, 12/25/16) oxycodone (Unverified Allergy, Severe, DIFFICULTY BREATHING, 12/25/16) ibuprofen (Unverified Adverse Reaction, Unknown, TOLD NOT TO TAKE DUE TO KIDNEY DISORDERS, 12/25/16) Past Medical History Chronic hypertension Past Surgical History 3 Reported Medications Reported Meds & Active Scripts Active Enalapril (Enalapril Maleate) 5 Mg Tab 5 Mg PO DAILY 30 Days Hydrocodone-Acetaminophen 5-325 mg Tab 1 Tab PO Q4H PRN Labetalol (Labetalol HCl) 300 Mg Tab 400 Mg PO TID 30 Days Tgt Aspirin (Aspirin) 81 Mg Chw 81 Mg CHEW DAILY Family History Father had MO and at the age of 52, also with history of high blood pressure. Mother also with history of high blood pressure Social History He denies alcohol use, illicit drug use or tobacco use. Physical Exam Vital Signs Vital Signs Date Time Temp Pulse Resp B/P (MAP) Pulse Ox O2 Delivery O2 Flow Rate FiO2 04/05/17 08:00 69 119/69 (86) 04/05/17 08:00 97.9 18 04/05/17 04:00 74 142/93 (109) 04/05/17 04:00 97.5 18 04/05/17 00:00 97.7 80 18 134/53 (80) 04/04/17 22:00 74 18 123/89 (100) 04/04/17 20:00 144/71 (95) 04/04/17 20:00 98.5 88 18 04/04/17 13:56 18 04/04/17 13:56 91 151/72 (98) Physical Exam GENERAL: This is a very pleasant 31-year-old female, well-nourished, well- developed patient, in no apparent distress. SKIN: No rashes, ecchymoses or lesions. Cool and dry. HEAD: Atraumatic. Normocephalic. No temporal or scalp tenderness. EYES: Pupils equal round and reactive. Extraocular motions intact. No scleral icterus. No injection or drainage. ENT: Nose without bleeding, purulent drainage or septal hematoma. Throat without erythema, tonsillar hypertrophy or exudate. Uvula midline. Airway patent. NECK: Trachea midline. No JVD or lymphadenopathy. Supple, nontender, no meningeal signs. CARDIOVASCULAR: Regular rate and rhythm without murmurs, gallops, or rubs. RESPIRATORY: Clear to auscultation. Breath sounds equal bilaterally. No wheezes , rales, or rhonchi. GASTROINTESTINAL: Abdomen soft, non-tender, nondistended. No guarding. MUSCULOSKELETAL: Extremities without clubbing, cyanosis, or edema. No joint tenderness, effusion, or edema noted. No calf tenderness. Negative Homans sign bilaterally. NEUROLOGICAL: Awake and alert. Cranial nerves II through XII intact. Motor and sensory grossly within normal limits. Five out of 5 muscle strength in all muscle groups. Normal speech. Laboratory Date/Time Source Procedure Growth Status 03/27/17 13:00 Urine Clean Catch Urine Culture - Final 50-100,000 CFU/ML MIXED GRAM POSITIVE... Complete Result Diagram: 04/03/17 0446 04/03/17 0446 Imaging Last Impressions Head CT 04/05/17 0000 Signed Impressions: Service Date/Time: Wednesday, April 05, 2017 12:17 - CONCLUSION: Negative for acute process. Jean-Claude Vazquez MD FACR Abdomen X-Ray 04/02/17 0000 Signed Impressions: Service Date/Time: Sunday, April 02, 2017 09:24 - CONCLUSION: 1. Negative KUB. Temo Vazquez MD Assessment and Plan Assessment and Plan 31-year-old female with: preeclampsia superimposed on chronic hypertension Proteinuria Headaches Dizziness Continue care, management per RAMP LEAD Monitor blood pressure, presently better controlled on labetalol 600 mg 3 times a day, hydralazine 10 mg 3 times a day. Avoid [place] at this time Antivert for dizziness Fioricet for headache CT head reviewed and normal. Patient had a normal ECHO in June 2016 at [facility] and was normal DVT ppx scd/teds/lovenox Thank you for this consultation Discussed Condition With Patient Madison Pierre MD Apr 05, 2017 13:04
[2017-04-05] MEDS ORDERED: MECLIZINE HCL 25 MG TAB PO PRN (13:15)
[2017-04-05] MEDS ORDERED: Acet-Butal-Caff 325-50-40 Mg PO (14:14)
[2017-04-05] MEDS ORDERED: LABE300T PO (14:14)
[2017-04-05] MEDS ORDERED: HYDR-3798 PO (14:14)
== END 2017-04-05 18:21 | disposition home or self-care (01) | DRG 765 ==
LOC: HOBED 12:22 → H2EA 14:11 → OBSVTOIN 16:36 → H1EA 03-31 17:21 → H2EA 04-02 12:55 → H1EA 04-03 16:30
PROVIDERS: ADMIT Obstetrics & Gynecology; ATTEND Obstetrics & Gynecology
PROC: 10D00Z1 Extraction of Products of Conception, Low, Open Approach (ICD-10-PCS; principal; 2017-03-30)
PROC: 0UB70ZZ Excision of Bilateral Fallopian Tubes, Open Approach (ICD-10-PCS; 2017-03-30)
DX: O11.4 Pre-existing hypertension with pre-eclampsia, complicating childbirth (principal); Z68.41 Body mass index [BMI] 40.0-44.9, adult; O10.22 Pre-existing hypertensive chronic kidney disease complicating childbirth; I12.9 Hypertensive chronic kidney disease with stage 1 through stage 4 chronic kidney disease, or unspecified chronic kidney disease; N18.9 Chronic kidney disease, unspecified; O36.0930 Maternal care for other rhesus isoimmunization, third trimester, not applicable or unspecified; O99.214 Obesity complicating childbirth; E66.9 Obesity, unspecified; O34.219 Maternal care for unspecified type scar from previous cesarean delivery; Z3A.28 28 weeks gestation of pregnancy; Z37.0 Single live birth; Z30.2 Encounter for sterilization
CPT/HCPCS: 59025; 70450; 74018; 76815; 76819; 76820; 76821; 80053; 81001; 82805; 82948; 83735; 84157; 84550; 85007; 85025; 85027; 86850; 86900; 86901; 86902; 86920; 86922; 87086; 88302; 88307; 94150; J0131; J0360; J0702; J1650; J2274; J2370; J2405; J2590; J3475; J7120

== ENCOUNTER 2017-04-07 17:12 | Emergency (ER) | payer MEDICAID ==
[~2017-04-07 17:12] MED LIST changes: -ASPI81 CHEW; +Acet-Butal-Caff 325-50-40 Mg PO; +ENAL5TAB PO; +HYDR-3516 PO; +HYDR-3798 PO
--- NOTE | 2017-04-07 18:00 | PD ---
History of Present Illness Date Seen: Apr 07, 2017 Time Seen: 17:50 History of Present Illness Patient's 1 week postop from repeat tubal ligation done for severe superimposed preeclampsia with chronic hypertension history. Blood pressures were becoming uncontrollable with IV labetalol and high-dose and after consultation with maternal- medicine of her private OB team deliver her by on 03/30/17. Patient's baby is in the NICU she was only 28 weeks and was in the NICU and they advised her to come over here and get her blood pressure check she seemed be looking different patient has basically done well but she did have 2 nosebleeds yesterday. Her on OB ED her blood pressure is 150 /50, 130/50 she's currently on labetalol 3 times a day 600 mg and hydralazine 10 mg 3 times a day she was discharged from our OB unit to be seen tomorrow by her [facility] doctors and a check of blood pressure then Aris Zimmer II, MD Apr 07, 2017 18:00
--- NOTE | 2017-04-07 18:06 | PD ---
HPI Travel History International Travel<30 Days: No Contact w/Intl Traveler<30Days: No Known Affected Area: No Allergies-Medications (Allergen,Severity, Reaction): Coded Allergies: Sulfa (Sulfonamide Antibiotics) (Unverified Allergy, Severe, swell, ) adhesive tape (Verified Allergy, Severe, blisters, 03/27/17) diatrizoate meglumine (Unverified Allergy, Severe, VOMITING , 12/25/16) droperidol (Unverified Allergy, Severe, Anaphylaxis, 12/25/16) gadobenic acid (Unverified Allergy, Severe, VOMITING , 12/25/16) gadodiamide (Unverified Allergy, Severe, VOMITING , 12/25/16) gadoteridol (Unverified Allergy, Severe, VOMITING , 12/25/16) iodixanol (Unverified Allergy, Severe, VOMITING , 12/25/16) iohexol (Unverified Allergy, Severe, VOMITING , 12/25/16) ketorolac (Unverified Allergy, Severe, ITCHING, 12/25/16) oxycodone (Unverified Allergy, Severe, DIFFICULTY BREATHING, 12/25/16) ibuprofen (Unverified Adverse Reaction, Unknown, TOLD NOT TO TAKE DUE TO KIDNEY DISORDERS, 12/25/16) Home Meds Active Scripts [Chlo-Melgg-Ykph 325-50-40 Mg] 1 TAB TAB No Conflict Check, 1 TAB PO Q6H Y for headache for 14 Days, #30 0 Refills Prov:Sadaf Finley MD 04/05/17 Labetalol (Labetalol) 300 Mg Tab, 600 MG PO Q8HR for Blood Pressure Management for 30 Days, #90 TAB 0 Refills Prov:Sadaf Finley MD 04/05/17 Hydralazine HCl (Hydralazine HCl) 10 Mg Tablet, 10 MG PO Q8HR for Blood Pressure Management for 30 Days, #90 TAB 0 Refills Prov:Sadaf Finley MD 04/05/17 Enalapril (Enalapril) 5 Mg Tab, 5 MG PO DAILY for Blood Pressure Management for 30 Days, #30 TAB 1 Refill Prov:Galo Guillaume MD 03/31/17 Hydrocodone-Acetaminophen (Hydrocodone-Acetaminophen) 5-325 mg Tab, 1 TAB PO Q4H Y for PAIN, #20 TAB 0 Refills Prov:Galo Guillaume MD 03/31/17 Physical Exam Narrative GENERAL: Well-nourished, well-developed patient. SKIN: Warm and dry. HEAD: Normocephalic and atraumatic. EYES: No scleral icterus. No injection or drainage. ENT: No nasal drainage noted. Mucous membranes pink. Airway patent. NECK: Supple, trachea midline. No JVD. CARDIOVASCULAR: Regular rate and rhythm without murmurs, gallops, or rubs. RESPIRATORY: Breath sounds equal bilaterally. No accessory muscle use. BREASTS: Bilateral exam showed no masses , no retractions, no nipple discharge. ABDOMEN/GI: Abdomen soft, non-tender, bowel sounds present, no rebound, no guarding Gravid to [-] weeks size Fundal Height: [-] GENITOURINARY: External Genitalia: intact and normal in appearance BUS glands: [-] Cervix: [-] Dilatation: [-] Effacement: [-] Station: [-] Presentation: [-] Membranes: [intact or ruptured] Uterine Contractions: [-] FHT's: Category: [-] Baseline: [-] Reactive: [-] Variability: [-] Decels: [-] EXTREMITIES: No cyanosis or edema. BACK: Nontender without obvious deformity. No CVA tenderness. NEUROLOGICAL: Awake and alert. Motor and sensory grossly within normal limits. Five out of 5 muscle strength in all muscle groups. Normal speech. MDM Diagnosis Diagnosis: Primary Impression: Pre-eclampsia superimposed on chronic hypertension, delivered Disposition: 01 DISCHARGE HOME Condition: Stable Patient Instructions: General Instructions Additional Instructions: continue taking medications as prescribed. see your doctor tommorrow in office. rest for the next couple of weeks Departure Forms: Tests/Procedures Aris Zimmer II, MD Apr 07, 2017 18:06
== END 2017-04-07 18:47 | disposition home or self-care (01) ==
LOC: HOBED 17:12
DX: O11.5 Pre-existing hypertension with pre-eclampsia, complicating the puerperium (principal); O10.93 Unspecified pre-existing hypertension complicating the puerperium
CPT/HCPCS: 99283